=== PATIENT | male | born 1970 | race Two or more races ===

== ENCOUNTER 2018-11-17 07:03 | Inpatient (IN) | payer MEDICAID | END 2018-11-19 13:40 | disposition home or self-care (01) | LOC: TELE-WESTW 11-18 14:40 → ER 07:03 → OVERFLOW 09:45 | DX: A41.9 Sepsis, unspecified organism (principal); I21.4 Non-ST elevation (NSTEMI) myocardial infarction; J18.9 Pneumonia, unspecified organism; E27.1 Primary adrenocortical insufficiency; I42.9 Cardiomyopathy, unspecified; J01.00 Acute maxillary sinusitis, unspecified; I49.8 Other specified cardiac arrhythmias; I49.3 Ventricular premature depolarization; K80.20 Calculus of gallbladder without cholecystitis without obstruction; E87.6 Hypokalemia; E03.9 Hypothyroidism, unspecified ==

== ENCOUNTER 2020-04-10 04:24 | Inpatient (IN) | payer MEDICAID ==
[~2020-04-10] VITALS: Ht 170.2 cm; Wt 110.0 kg
[~2020-04-10 04:24] MED LIST: ACE3T PO; CARV12.544 PO; ENAL2.5T PO; FAMO-12 PO; LEVO88TA4 PO; METH500T22 PO
[2020-04-10 05:57] LABS: Basophils # (auto) 0 10 ^3/uL (0-0.2); Basophils % (auto) 0.6 % (0.0-2.0); Eosinophils # (auto) 0.2 10 ^3/uL (0-0.8); Eosinophils % (auto) 4.5 % (0.0-7.0); Hematocrit 39.8 % (41.0-53.0); Hemoglobin 13.5 g/dL (13.5-17.5); Lymphocytes # (auto) 1.5 10 ^3/uL (0.4-5.4); Lymphocytes % (auto) 32.9 % (10.0-50.0); Mean Corpuscular Hemoglobin 31.7 pg (28.0-32.0); Mean Corpuscular Volume 93.2 fL (80.0-100.0); Monocytes # (auto) 0.4 10 ^3/uL (0-1.3); Monocytes % (auto) 9.2 % (0.0-12.0); Neutrophils # (auto) 2.4 10 ^3/uL (1.6-8.6); Neutrophils % (auto) 52.8 % (37.0-80.0); Nucleated Red Blood Cells % 0.2 %; Platelet Count (auto) 105 10^3/uL (140-450); Red Blood Cells 4.27 10^6/uL (4.5-5.90); Red Cell Distribution Width 15.5 % (11.8-14.3); White Blood Cell 4.5 10^3/uL (4.4-10.8)
[2020-04-10 06:09] LABS: INR 1.34 (0.9-1.15); Partial Thromboplastin Time 37.2 sec (23.64-32.05)
[2020-04-10 06:21] LABS: Albumin 3.6 g/dL (3.4-5.0); Anion Gap 7 (5-15); Blood Urea Nitrogen 8 mg/dL (7-18); Calcium 7.9 mg/dL (8.5-10.1); Carbon Dioxide 26 mmol/L (21-32); Chloride 105 mmol/L (98-107); Potassium 3.3 mmol/L (3.5-5.1); Sodium 138 mmol/L (136-145)
[2020-04-10 06:29] LABS: Alanine Aminotransferase 21 U/L (16-61); Alkaline Phosphatase 79 U/L (45-117); Aspartate Aminotransferase 52 U/L (15-37); BUN/Creatinine Ratio 9.4; Bilirubin, Total 3.7 mg/dL (0.2-1.0); GFR African American 123 mL/min; GFR Non-African American 101 mL/min; Glucose 78 mg/dL (74-106); Total Protein 7.9 g/dL (6.4-8.2)
[2020-04-10 06:30] LABS: Lactic Acid w/Reflex 2.4 mmol/L (0.4-2.0)
[2020-04-10] MEDS ORDERED: POTASSIUM EFFERVESENT TAB 25 MEQ PO ONE (07:45)
[2020-04-10] MEDS ORDERED: HYDROCORTISONE SOD SUCC 100 MG/2ML INJ VIAL IV ONE (08:45)
[2020-04-10] MEDS ORDERED: FLUDROCORTISONE ACETATE 0.1 MG TAB PO ONE (08:45)
[2020-04-10] MEDS ORDERED: cefTRIAXone 1GM/50ML D5W 50 ML IV ONE (08:45)
[2020-04-10] MEDS ORDERED: cefTRIAXone SOD 1,000 MG VL ONE (08:49)
[2020-04-10] MEDS ORDERED: DIPH25CA46 PO (10:44)
[2020-04-10] MEDS ORDERED: CEPH500C PO (10:44)
[2020-04-10] MEDS ORDERED: HYDR-4792 PO (10:44)
[2020-04-10] MEDS ORDERED: PRED20TA2 PO (10:44)
[2020-04-10] MEDS ORDERED: FLUD0.1T2 PO (10:44)
[2020-04-10] MEDS ORDERED: FERR-20 PO (10:44)
[2020-04-10] MEDS: LEVOTHYROXINE SODIUM 100 MCG TAB PO ONE ×2 (10:47→10:49)
[2020-04-10] MEDS ORDERED: DOXYCYCLINE 100MG/250ML 250 ML IV ONE (11:15)
[2020-04-10] MEDS ORDERED: ACETAMINOPHEN 500 MG TAB PO PRN ×2 (11:30)
[2020-04-10] MEDS ORDERED: MORPHINE SULF INJ 2 MG/ML SYRINGE 1ML IV PRN ×2 (11:30)
[2020-04-10] MEDS ORDERED: NITROGLYCERIN 0.4 MG SL TAB SL PRN (11:30)
[2020-04-10] MEDS ORDERED: ONDANSETRON HCL 4 MG/2 ML VIAL IV PRN (11:30)
[2020-04-10] MEDS ORDERED: HYDROcodone-ACET 5/325MG TAB PO PRN (11:30)
[2020-04-10] MEDS ORDERED: FUROSEMIDE 20 MG/2 ML VIAL IV ONE (11:30)
[2020-04-10] MEDS ORDERED: PIPERACILLIN-TAZOB 3.375GM 100 ML IV ONE (11:50)
[2020-04-10] MEDS: PIPERACILLIN-TAZOB 3.375GM 100 ML IV SCH ×2 (12:09→18:44)
[2020-04-10 12:59] LABS: CRP High Sensitivity 0.83 mg/dL (< 0.3); Magnesium 1.9 mg/dL (1.6-2.6)
[2020-04-10 13:19] VITALS: BP 152/88
[2020-04-10] MEDS: ALBUTEROL SULF HFA 90MCG INH 200DOSE IN SCH (14:00)
--- NOTE | 2020-04-10 19:30 | NUR ---
Opening Shift Note Assumed care of patient, awake and alert x4. Patient denies pain at this time. Patient is on 2L NC with oxygen saturation at 99%. No sign/symptoms of distress noted or verbalized at this time. Instructed on plan of care and encouraged patient to call for assistance as needed, patient verbalized understanding. Bed is locked in lowest position, side rails x 2 are up, and call light is within reach.
[2020-04-10 20:00] VITALS: BP 146/88
--- NOTE | 2020-04-10 21:01 | NUR ---
Report Given Report given to Bozena FERREIRA.
--- NOTE | 2020-04-10 21:21 | NUR ---
Patient Transferred to 249A Patient to transfer to room 249A due to covid-19 test resulting negative, patient made aware, and verbalized understanding. Patient transferred via wheelchair. No sign/symptoms of distress noted upon departure. Patient care endorsed to HANNA Seals.
--- NOTE | 2020-04-10 21:30 | NUR ---
Received patient from Covid unit. Patient alert/oriented, not in distress. Instructed on POC and to call for assist as needed, patient verbalized understanding. Safety precaution in place, call light within reach, will continue to monitor
[2020-04-10] MEDS ORDERED: DOXYCYCLINE 100MG/250ML 250 ML IV SCH (22:00)
[2020-04-10] MEDS: CARVEDILOL 12.5 MG TAB PO SCH (22:42)
[2020-04-10] MEDS: FAMOTIDINE 20 MG TAB PO SCH (22:42)
[2020-04-10 23:57] VITALS: BP 136/82
[2020-04-11] VITALS (7 sets, daily range): BP systolic 88–132; BP diastolic 47–72
--- NOTE | 2020-04-11 00:20 | NUR ---
Patient complained of non-stop coughing. Assessment done and revealed bilateral crackles. V/S taken and maintained on O2 at 2 Lpm/NC. Paged hospitalist, awaiting call back
[2020-04-11] MEDS: PIPERACILLIN-TAZOB 3.375GM 100 ML IV SCH ×5 (00:26→18:15)
[2020-04-11] MEDS ORDERED: FUROSEMIDE 20 MG/2 ML VIAL IV ONE (01:00)
[2020-04-11] MEDS ORDERED: FUROSEMIDE 20 MG/2 ML VIAL ONE (01:00)
--- NOTE | 2020-04-11 01:00 | NUR ---
Hospitalist Michael called back, new order received at this time and read back, will carry out order
[2020-04-11 02:36] LABS: Amphetamine Screen, Urine NEGATIVE (NEGATIVE); Barbiturate Scree,Urine NEGATIVE (NEGATIVE); Benzodiazephine Screen, Urine NEGATIVE (NEGATIVE); Cannabinoid Screen, Urine NEGATIVE (NEGATIVE); Cocaine Screen, Urine NEGATIVE (NEGATIVE); Opiate Scree,Urine NEGATIVE (NEGATIVE); Phencyclidine Screen, Urine NEGATIVE (NEGATIVE)
[2020-04-11 02:53] LABS: Urine Bacteria FEW /hpf (None Seen); Urine Blood 2+ /uL (Negative); Urine Hyaline Cast MANY /lpf (0 - 2); Urine Specific Gravity 1.022 (1.001-1.035); Urine WBC 3 /hpf (0 - 3)
[2020-04-11 06:27] LABS: Basophils # (auto) 0 10 ^3/uL (0-0.2); Basophils % (auto) 0.4 % (0.0-2.0); Eosinophils # (auto) 0 10 ^3/uL (0-0.8); Eosinophils % (auto) 0.3 % (0.0-7.0); Hematocrit 39.1 % (41.0-53.0); Hemoglobin 13.3 g/dL (13.5-17.5); Lymphocytes # (auto) 0.5 10 ^3/uL (0.4-5.4); Lymphocytes % (auto) 9.4 % (10.0-50.0); Mean Corpuscular Hemoglobin 31.6 pg (28.0-32.0); Mean Corpuscular Volume 93.1 fL (80.0-100.0); Monocytes # (auto) 0.5 10 ^3/uL (0-1.3); Monocytes % (auto) 8.8 % (0.0-12.0); Neutrophils # (auto) 4.6 10 ^3/uL (1.6-8.6); Neutrophils % (auto) 81.1 % (37.0-80.0); Nucleated Red Blood Cells % 0.4 %; Platelet Count (auto) 95 10^3/uL (140-450); Red Cell Distribution Width 15.4 % (11.8-14.3); White Blood Cell 5.7 10^3/uL (4.4-10.8)
[2020-04-11 06:47] LABS: Albumin 3.2 g/dL (3.4-5.0); Calcium 7.8 mg/dL (8.5-10.1); Potassium 4.4 mmol/L (3.5-5.1)
[2020-04-11 06:50] LABS: BUN/Creatinine Ratio 12.9; Bilirubin, Total 2.8 mg/dL (0.2-1.0); Total Protein 7.3 g/dL (6.4-8.2)
[2020-04-11] MEDS ORDERED: LEVOTHYROXINE SODIUM 88 MCG TAB PO SCH (07:00)
--- NOTE | 2020-04-11 08:00 | NUR ---
OPENING SHIFT NOTE: PATIENT RESTING IN BED. A/OX4. UPDATED ON PLAN OF CARE. CALL LIGHT PLACED WITHIN REACH. RESPIRATIONS EVEN AND UNLABORED. WILL CONTINUE TO MONITOR.
--- NOTE | 2020-04-11 09:15 | NUR ---
MED REC COMPLETED. PATIENT ABLE TO VERIFY HOME MEDS. UPDATED IN THE EMR DIRECTED.
[2020-04-11] MEDS: CARVEDILOL 12.5 MG TAB PO SCH (10:00)
[2020-04-11] MEDS ORDERED: ZINC SULFATE 220mg CAP or TAB PO SCH (10:00)
[2020-04-11] MEDS ORDERED: ASCORBIC ACID 1,000 MG TAB PO SCH (10:00)
[2020-04-11] MEDS ORDERED: CHOLECALCIFEROL (VITD3) 1,000IU=25mCg TAB PO SCH (10:00)
--- NOTE | 2020-04-11 10:00 | NUR ---
PATIENT ABLE TO HAVE A BM. FORMED SOFT SMALL BROWN. SAMPLE SENT TO LAB.
[2020-04-11] MEDS: FAMOTIDINE 20 MG TAB PO SCH ×2 (10:41→21:59)
[2020-04-11] MEDS: FLUDROCORTISONE ACETATE 0.1 MG TAB PO SCH (10:41)
[2020-04-11] MEDS: HYDROCORTISONE 10 MG TAB PO SCH (10:41)
[2020-04-11] MEDS: ENOXAPARIN SOD 40 MG/0.4 ML SYRINGE SC SCH (10:42)
[2020-04-11] MEDS ORDERED: ASPI-404 PO (13:29)
[2020-04-11] MEDS ORDERED: predniSONE 20 MG TAB PO ONE (14:30)
[2020-04-11] MEDS ORDERED: IOHEXOL 350 MG/ML 100ML IJ ONE (14:31)
[2020-04-11] MEDS: VANCOMYCIN HCL 125MG/5ML ORAL SOL GT SCH ×2 (18:00→21:58)
--- NOTE | 2020-04-11 18:20 | NUR ---
C. DIFF ORDER CANCELLED, PATIENT NOT A CANDIDATE FOR C. DIFF TEST AT THIS TIME.
--- NOTE | 2020-04-11 19:33 | NUR ---
Respiratory note: ASSESSMENT FOR PRN MED NEB TX. HR 61, SPO2 98% ON 2L NC, RR 18, BS DIMINISHED. PT PRESENTING NO RESPIRATORY DISTRESS, MED NEB TX NOT INDICATED AT THIS TIME. PT AWARE TO HAVE RT PAGED IF NEEDED, WILL CONTINUE TO MONITOR.
[2020-04-11] MEDS: CARVEDILOL 3.125 MG TAB PO SCH (21:59)
[2020-04-11] MEDS: DOXYCYCLINE 100 MG TAB/CAP PO SCH (21:59)
[2020-04-12] MEDS: PIPERACILLIN-TAZOB 3.375GM 100 ML IV SCH ×2 (00:30→06:14)
--- NOTE | 2020-04-12 03:36 | NUR ---
CARE ENDORSED TO ELMO FERREIRA.
--- NOTE | 2020-04-12 04:10 | NUR ---
OPENING SHIFT NOTE ASSUMED CARE OF PATIENT FROM COURT ORDERLY LAUREN. PATIENT IS AWAKE, ALERT AND ORIENTED X4. PATIENT HAS NO S/S OF DISTRESS/SOB OR PAIN. INSTRUCTED PATIENT ON POC, PATIENT VERBALIZED UNDERSTANDING. BED IS IN LOWEST POSITION WITH SIDE RAILS RAISED X2, BED WHEELS LOCKED, AND CALL LIGHT IS WITHIN REACH. WILL CONTINUE TO MONITOR.
[2020-04-12 05:00] VITALS: BP 131/81
[2020-04-12 06:12] LABS: Basophils # (auto) 0 10 ^3/uL (0-0.2); Basophils % (auto) 0.3 % (0.0-2.0); Eosinophils # (auto) 0 10 ^3/uL (0-0.8); Eosinophils % (auto) 0.1 % (0.0-7.0); Hematocrit 41.2 % (41.0-53.0); Hemoglobin 13.9 g/dL (13.5-17.5); Lymphocytes # (auto) 0.3 10 ^3/uL (0.4-5.4); Lymphocytes % (auto) 8.8 % (10.0-50.0); Mean Corpuscular Hemoglobin 31.6 pg (28.0-32.0); Mean Corpuscular Hgb Conc. 33.7 g/dL (32.0-36.0); Mean Corpuscular Volume 93.8 fL (80.0-100.0); Monocytes # (auto) 0.1 10 ^3/uL (0-1.3); Monocytes % (auto) 1.8 % (0.0-12.0); Nucleated Red Blood Cells % 0.1 %; Platelet Count (auto) 90 10^3/uL (140-450); Red Blood Cells 4.39 10^6/uL (4.5-5.90); Red Cell Distribution Width 15.9 % (11.8-14.3); White Blood Cell 3.3 10^3/uL (4.4-10.8)
[2020-04-12] MEDS: LEVOTHYROXINE SODIUM 25 MCG TAB PO SCH (06:14)
[2020-04-12] MEDS: LEVOTHYROXINE SODIUM 100 MCG TAB PO SCH (06:15)
[2020-04-12 06:41] LABS: Potassium 4.4 mmol/L (3.5-5.1)
[2020-04-12 06:59] LABS: Albumin 3.5 g/dL (3.4-5.0); BUN/Creatinine Ratio 20.2; Bilirubin, Total 2.4 mg/dL (0.2-1.0); Calcium 8.3 mg/dL (8.5-10.1); Magnesium 2.1 mg/dL (1.6-2.6); Total Protein 7.8 g/dL (6.4-8.2)
--- NOTE | 2020-04-12 07:19 | NUR ---
PT ASSESSED FOR PRN HHN TX. PT IS ON 2LNC, SPO2 95%, HR 78, RR 18. NO S/S OF RESPIRATORY DISTRESS AT THIS TIME. PRN TX NOT INDICATED. WILL CONTINUE TO MONITOR.
[2020-04-12 08:02] VITALS: BP 131/81
[2020-04-12 08:40] VITALS: BP 119/78
[2020-04-12] MEDS: CARVEDILOL 3.125 MG TAB PO SCH ×2 (08:46→17:42)
--- NOTE | 2020-04-12 08:55 | NUR ---
RESPIRATORY CULTURE GIVEN TO METHOD CONSULTANT.
--- NOTE | 2020-04-12 08:57 | NUR ---
GAVE PATIENT INCENTIVE SPIROMETER. EDUCATED PATIENT ON USE OF IS, PATIENT VERBALIZED UNDERSTANDING.
[2020-04-12] MEDS ORDERED: predniSONE 20 MG TAB PO SCH (10:00)
--- NOTE | 2020-04-12 10:25 | NUR ---
MD NUÑEZ AT BEDSIDE UPDATED MD ON PATIENT'S STATUS, MD IS AWARE. UPDATED MED REC FOR HYDROCORTISONE.
[2020-04-12] MEDS ORDERED: HYDR10T PO (10:41)
[2020-04-12] MEDS: HYDROCORTISONE 10 MG TAB PO SCH ×2 (10:49→21:54)
[2020-04-12] MEDS: DOXYCYCLINE 100 MG TAB/CAP PO SCH (10:49)
[2020-04-12] MEDS: FAMOTIDINE 20 MG TAB PO SCH ×2 (10:51→21:50)
[2020-04-12] MEDS: FLUDROCORTISONE ACETATE 0.1 MG TAB PO SCH (10:51)
--- NOTE | 2020-04-12 11:12 | NUR ---
SPOKE WITH DR. NUÑEZ REGARDING DOXYCYCLINE AND LOVENOX PER GLADIS DEL REAL DOXYCYCLINE AND GIVE LOVENOX. WILL FOLLOW THROUGH WITH ORDERS.
[2020-04-12] MEDS: ENOXAPARIN SOD 40 MG/0.4 ML SYRINGE SC SCH (11:17)
[2020-04-12] MEDS ORDERED: levoFLOXacin 250 MG TAB PO ONE ×2 (11:45→12:15)
[2020-04-12] MEDS ORDERED: FUROSEMIDE 20 MG/2 ML VIAL IV ONE (11:45)
[2020-04-12 12:30] VITALS: BP 118/83
--- NOTE | 2020-04-12 14:34 | NUR ---
VERIFIED LEVOFLOXACIN ORDER WITH DR. NUÑEZ PER MD ONLY GIVE 750 MG (3 TABS) ONE TIME.
[2020-04-12 17:00] VITALS: BP 104/56
--- NOTE | 2020-04-12 18:00 | NUR ---
SPOKE WITH DR. COLEMAN AND INFORMED HIM PATIENT STATES HIS MOUTH IS BURNING AND HIS THROAT IS DRY. THERE IS NO NOTABLE SORE OR SWELLING IN MOUTH OR ON LIPS. PATIENT'S TONGUE IS DRY AND ENCOURAGED PATIENT TO DRINK WATER. PATIENT HAS NOT EATEN ANYTHING SPICY. MD ORDERED DIPHENHYDRAMINE TO BE GIVEN. WILL FOLLOW THROUGH WITH ORDERS.
[2020-04-12] MEDS ORDERED: diphenhdrAMINE HCL 50 MG/1 ML VL IV ONE ×2 (18:15→18:30)
--- NOTE | 2020-04-12 18:26 | NUR ---
DR. COLEMAN AT BEDSIDE AND CHANGED ORDER OF DIPHENHYDRAMINE TO 50 MG WILL CHANGE ORDER
--- NOTE | 2020-04-12 19:20 | NUR ---
CLOSING SHIFT NOTE ENDORSED CARE TO FLOOR PLAN ADJUSTER HANNA GIANG. PATIENT HAS NO S/S OF DISTRESS/SOB OR PAIN AT THIS TIME. RN IS AWARE OF PATIENT'S MOUTH BURNING AND DISCHARGE FROM EYES. RN PAGED MD COLEMAN FOR NEW ONSET OF DISCHARGE IN EYES
[2020-04-12] MEDS ORDERED: methylPREDNISolone SOD SUCC 125 MG/2 ML VL IV ONE (19:30)
--- NOTE | 2020-04-12 19:30 | NUR ---
OPENING NOTE RN CAME ON AND RECEIVED REPORT FROM DAY HANNA ASTUDILLO. RN REPORTED PT. WATERING EYES/ DISCHARGE FROM EYES WITH REDNESS. RNX2 WENT TO BEDSIDE TO ASSESS PT. AND ORIENT TO NEW RN. PT. ALSO STATES "MOUTH IS ON FIRE". PT. GIVEN ICE CHIPS AND INFORMED DR. PERRY REGARDING EYES/MOUTH. PT. IN NO PAIN. CALL LIGHT WITHIN REACH. WILL MONITOR.
--- NOTE | 2020-04-12 19:40 | NUR ---
DR KEANU SETH RETURNED CALL AND PUT IN ORDER FOR ONE TIME IV SOLU-MEDROL 125MG TO BE GIVEN NOW. MEDICATION GIVEN. PT. TOLERATED WELL AND RESTING. CALL LIGHT WITHIN REACH. WILL CONTINUE TO MONITOR.
[2020-04-12] MEDS ORDERED: QUEtiapine FUMARATE 100 MG TAB PO ONE (19:45)
[2020-04-12] MEDS ORDERED: ACETAMINOPHEN 500 MG TAB PO PRN (19:45)
[2020-04-12] MEDS ORDERED: THROAT LOZENGES(CEPASTAT) MT ONE (19:45)
[2020-04-12] MEDS ORDERED: THROAT LOZENGES(CEPASTAT) MT PRN (19:45)
[2020-04-12 22:00] VITALS: BP 124/75
--- NOTE | 2020-04-13 00:05 | NUR ---
SLEEPING PT. ASLEEP IN BED. O2 ON. BED LOW. LIGHTS DIM. CALL LIGHT WITHIN REACH. WILL CONTINUE TO MONITOR.
[2020-04-13 04:30] VITALS: BP 113/69
[2020-04-13] MEDS: LEVOTHYROXINE SODIUM 100 MCG TAB PO SCH (06:44)
[2020-04-13] MEDS: LEVOTHYROXINE SODIUM 25 MCG TAB PO SCH (06:44)
--- NOTE | 2020-04-13 06:50 | NUR ---
END OF SHIFT PT. AWAKE AND RESTING IN BED. CALL LIGHT WITHIN REACH. NO PAIN/DISTRESS.
[2020-04-13 06:57] LABS: Basophils # (auto) 0 10 ^3/uL (0-0.2); Eosinophils # (auto) 0 10 ^3/uL (0-0.8); Hematocrit 37.8 % (41.0-53.0); Hemoglobin 12.7 g/dL (13.5-17.5); Lymphocytes # (auto) 0.2 10 ^3/uL (0.4-5.4); Lymphocytes % (auto) 1.9 % (10.0-50.0); Mean Corpuscular Hemoglobin 31.5 pg (28.0-32.0); Mean Corpuscular Hgb Conc. 33.6 g/dL (32.0-36.0); Mean Corpuscular Volume 93.9 fL (80.0-100.0); Monocytes # (auto) 0.1 10 ^3/uL (0-1.3); Monocytes % (auto) 0.8 % (0.0-12.0); Neutrophils # (auto) 9.3 10 ^3/uL (1.6-8.6); Neutrophils % (auto) 97.3 % (37.0-80.0); Nucleated Red Blood Cells % 0.1 %; Platelet Count (auto) 95 10^3/uL (140-450); Red Blood Cells 4.03 10^6/uL (4.5-5.90); Red Cell Distribution Width 15.8 % (11.8-14.3); White Blood Cell 9.5 10^3/uL (4.4-10.8)
[2020-04-13 07:17] LABS: Albumin 3.2 g/dL (3.4-5.0); BUN/Creatinine Ratio 22.5; Calcium 7.7 mg/dL (8.5-10.1)
[2020-04-13 07:20] LABS: Bilirubin, Total 1.6 mg/dL (0.2-1.0); Total Protein 7.2 g/dL (6.4-8.2)
[2020-04-13 07:28] LABS: INR 1.33 (0.9-1.15)
--- NOTE | 2020-04-13 07:35 | NUR ---
Opening shift note Assumed care of patient from NOC HANNA Vee. Patient is AOx4, no signs and symptoms of distress noted. Call light is within reach, bed is in lowest locked position, and side rails up x2. Updated patient on plan of care and patient verbalized understanding. I will continue to monitor q1hr and PRN.
[2020-04-13] MEDS: ALBUTEROL SULF 2.5 MG/0.5ML(0.5%) NEB SOLN NEB PRN (08:36)
[2020-04-13] MEDS: IPRATROPIUM BROM 0.5 MG/2.5ML INH SOL NEB PRN (08:36)
[2020-04-13 08:54] VITALS: BP 123/74
--- NOTE | 2020-04-13 09:33 | NUR ---
PT VERY TIRED AND SLEEPY. ATTEMPT P.T. LATER TODAY.
[2020-04-13] MEDS: levoFLOXacin 250 MG TAB PO SCH ×2 (10:00→13:13)
[2020-04-13] MEDS: predniSONE 20 MG TAB PO SCH (11:32)
[2020-04-13] MEDS: CARVEDILOL 3.125 MG TAB PO SCH ×2 (11:32→18:53)
[2020-04-13] MEDS: HYDROCORTISONE 10 MG TAB PO SCH ×2 (11:33→21:44)
[2020-04-13] MEDS: FLUDROCORTISONE ACETATE 0.1 MG TAB PO SCH (11:33)
[2020-04-13] MEDS: FUROSEMIDE 20 MG TAB PO SCH (11:34)
[2020-04-13] MEDS: FAMOTIDINE 20 MG TAB PO SCH ×2 (11:36→21:45)
--- NOTE | 2020-04-13 12:00 | NUR ---
Physician Rounding Dr. Carrasquillo at bedside, updated her on plan of care, no new orders received at this time.
[2020-04-13] MEDS ORDERED: METOCLOPRAMIDE HCL 5MG/ml INJ 2ml VIAL IV PRN (12:15)
[2020-04-13 12:55] VITALS: BP 119/72
[2020-04-13] MEDS: FLUCONAZOLE 200MG/100ML 100 ML IV SCH ×2 (16:00→17:56)
[2020-04-13 16:20] VITALS: BP 133/82
--- NOTE | 2020-04-13 19:18 | NUR ---
Opening note Assumed care of patient. Patient alert and orientated x4. No sob or distress noted. Bed locked in lowest position and side rails up x2. Call light with in reach Will continue to monitor.
--- NOTE | 2020-04-13 19:20 | NUR ---
End of shift note Endorsed care to NOC HANNA bales. No s/s of distress noted at this time.
--- NOTE | 2020-04-13 19:45 | NUR ---
RT NOTE PT WAS SEEN BY RT FOR PRN HHN TX ASSESSMENT. PT STATES NO TREATMENT NEEDED AT THIS TIME. HR 87, RR 16, BS CLEAR/DIM, POX 96% ON 2L NASAL CANNULA. PT AWARE HE CAN CALL IF TX NEEDED AT ANY TIME. NO PRN TX INDICATED AT THIS TIME. CONT ORDERED Addendum: 04/13/20 at 2011 by Maggie Gonzalez RT Amended: Links added.
[2020-04-13] MEDS ORDERED: FLUCONAZOLE 200MG/100ML 100 ML IV ONE (19:48)
[2020-04-13 21:14] VITALS: BP 112/74
[2020-04-14 04:35] VITALS: BP_SYST 109; BP_SYST 116; BP_DIAS 66; BP_DIAS 77
[2020-04-14 06:23] LABS: Albumin 3.3 g/dL (3.4-5.0); Bilirubin, Direct 0.9 mg/dL (0-0.2); Bilirubin, Total 1.2 mg/dL (0.2-1.0); Total Protein 7.2 g/dL (6.4-8.2)
[2020-04-14] MEDS: LEVOTHYROXINE SODIUM 100 MCG TAB PO SCH (06:37)
[2020-04-14] MEDS: LEVOTHYROXINE SODIUM 25 MCG TAB PO SCH (06:38)
--- NOTE | 2020-04-14 07:10 | NUR ---
Closing note Endorsed care to day shift RN.
[2020-04-14] MEDS: CARVEDILOL 3.125 MG TAB PO SCH ×2 (08:00→17:35)
[2020-04-14 09:00] VITALS: BP 127/90
--- NOTE | 2020-04-14 09:28 | NUR ---
Patient assessment Patient stated " I can not open my eyes, the light is too bright." Patients eyes are red and swollen, patient stated he does not feel any pain at the site. I will updated attending MD. I will continue to monitor PRN and Q1hr.
--- NOTE | 2020-04-14 09:30 | NUR ---
Physician rounding Dr. Carrasquillo at bedside, updated her on patient status, new orders received I will follow through with new orders.
[2020-04-14] MEDS ORDERED: diphenhdrAMINE HCL 50 MG/1 ML VL IV ONE (09:45)
[2020-04-14] MEDS ORDERED: methylPREDNISolone SOD SUCC 125 MG/2 ML VL IV ONE (09:45)
[2020-04-14 09:50] VITALS: BP 98/56
--- NOTE | 2020-04-14 09:50 | NUR ---
Patient Vitas Patient is supine in bed, so s/s of distress noted. Vitals are as follows: B/P: 98/56 HR: 63bpm Respirations: 19 per minute Temperature: 97.7 Oxygen saturation: 97% on room air. I will continue to monitor Q1HR and PRN.
[2020-04-14] MEDS: FUROSEMIDE 20 MG TAB PO SCH (10:00)
[2020-04-14] MEDS: predniSONE 20 MG TAB PO SCH (10:04)
[2020-04-14] MEDS: FAMOTIDINE 20 MG TAB PO SCH ×2 (10:04→21:07)
[2020-04-14] MEDS: FLUDROCORTISONE ACETATE 0.1 MG TAB PO SCH (10:05)
[2020-04-14] MEDS: FLUCONAZOLE 200MG/100ML 200 ML IV SCH ×2 (10:07→11:36)
[2020-04-14] MEDS: HYDROCORTISONE 10 MG TAB PO SCH ×2 (10:20→21:07)
--- NOTE | 2020-04-14 11:00 | NUR ---
HOLD P.T. BECAUSE OF ALLERGIC REACTION. PER NURSING REQUEST.
[2020-04-14 11:30] VITALS: BP 127/81
--- NOTE | 2020-04-14 11:42 | NUR ---
Est energy needs [id number] kcal (14-18 kcal/kg BW 114.5kg) Est protein needs 67-81g (1-1.2g/kg IBW 67kg) Will reassess prn. Addendum: 04/14/20 at [address] Amended: Links added.
[2020-04-14] MEDS ORDERED: FUROSEMIDE 20 MG/2 ML VIAL IV ONE (11:45)
--- NOTE | 2020-04-14 14:53 | NUR ---
Respiratory note: PT ASSESSED FOR PRN MED NEB TX, NO TX INDICATED AT THIS TIME. PT IS SLEEPING WITH NO SIGNS OF DISTRESS. RN AWARE TO HAVE RT PAGED IF NEEDED. HR 68 RR 18 SPO2 95% ON 2L N/C. BREATH SOUNDS ARE CLEAR/DIMINISHED T/O.
[2020-04-14 16:23] VITALS: BP 127/95
[2020-04-14] MEDS: FUROSEMIDE 40 MG/4 ML VIAL IV SCH (17:35)
--- NOTE | 2020-04-14 19:10 | NUR ---
End of shift note Endorsed care to NOC HANNA bales. No s/s of distress noted at this time.
--- NOTE | 2020-04-14 19:13 | NUR ---
Respiratory note: PT SEEN AND ASSESSED FOR PRN MED NEB TX AT 1913. TX IS NOT INDICATED AT THIS TIME. PT DENIES HAVING ANY RESPIRATORY DISTRESS. BREATH SOUNDS WERE CLEAR AND DIMINISHED BILATERALLY. HR 74 RR 18 SP02 98% ON 2L NASAL CANNULA. PT AWARE TO CALL FOR RT IF ANY DISTRESS OCCURS.
--- NOTE | 2020-04-14 19:15 | NUR ---
Opening note Assumed care of patient. Patient Bed locked in lowest position. Side rails up x2. No distress noted. POC reviewed. Patient verbalized understanding. Call light within reach. Will continue to monitor.
[2020-04-14 22:00] VITALS: BP 136/86
[2020-04-15 03:14] VITALS: BP 136/86
[2020-04-15 05:00] VITALS: BP 122/94
[2020-04-15] MEDS: FUROSEMIDE 40 MG/4 ML VIAL IV SCH ×2 (05:24→18:12)
[2020-04-15 06:10] LABS: Basophils # (auto) 0 10 ^3/uL (0-0.2); Eosinophils # (auto) 0 10 ^3/uL (0-0.8); Hematocrit 45.6 % (41.0-53.0); Hemoglobin 15.1 g/dL (13.5-17.5); Lymphocytes # (auto) 0.6 10 ^3/uL (0.4-5.4); Lymphocytes % (auto) 11.2 % (10.0-50.0); Mean Corpuscular Hemoglobin 31.5 pg (28.0-32.0); Mean Corpuscular Hgb Conc. 33.1 g/dL (32.0-36.0); Mean Corpuscular Volume 94.9 fL (80.0-100.0); Monocytes # (auto) 0.2 10 ^3/uL (0-1.3); Monocytes % (auto) 3.5 % (0.0-12.0); Neutrophils # (auto) 4.8 10 ^3/uL (1.6-8.6); Neutrophils % (auto) 85.3 % (37.0-80.0); Nucleated Red Blood Cells % 0.1 %; Platelet Count (auto) 125 10^3/uL (140-450); Red Cell Distribution Width 16.1 % (11.8-14.3); White Blood Cell 5.6 10^3/uL (4.4-10.8)
[2020-04-15 06:28] LABS: Albumin 3.5 g/dL (3.4-5.0); Calcium 8.2 mg/dL (8.5-10.1); Magnesium 2.7 mg/dL (1.6-2.6); Potassium 4.1 mmol/L (3.5-5.1)
[2020-04-15] MEDS: LEVOTHYROXINE SODIUM 25 MCG TAB PO SCH (06:32)
[2020-04-15] MEDS: LEVOTHYROXINE SODIUM 100 MCG TAB PO SCH (06:32)
[2020-04-15 06:33] LABS: BUN/Creatinine Ratio 28.9; Bilirubin, Total 1.3 mg/dL (0.2-1.0); Total Protein 7.8 g/dL (6.4-8.2)
[2020-04-15] MEDS: IPRATROPIUM BROM 0.5 MG/2.5ML INH SOL NEB PRN (07:16)
[2020-04-15] MEDS: ALBUTEROL SULF 2.5 MG/0.5ML(0.5%) NEB SOLN NEB PRN (07:16)
--- NOTE | 2020-04-15 07:18 | NUR ---
CLOSING NOTE Endorsed care to day shift RN.
--- NOTE | 2020-04-15 07:40 | NUR ---
opening shift note Assumed care of patient from NOC HANNA Tate. Patient is AOX4, no signs and symptoms of distress noted. Bed is in lowest locked position, side rails up x2, and call light is within reach. Updated patient on plan of care patient verbalized understanding. I will continue to monitor q1hr and prn.
[2020-04-15 08:30] VITALS: BP 132/71
[2020-04-15] MEDS: CARVEDILOL 3.125 MG TAB PO SCH ×2 (10:40→18:00)
[2020-04-15] MEDS: FLUCONAZOLE 200MG/100ML 200 ML IV SCH ×2 (10:40→13:40)
[2020-04-15] MEDS: FLUDROCORTISONE ACETATE 0.1 MG TAB PO SCH (10:41)
[2020-04-15] MEDS: predniSONE 20 MG TAB PO SCH (10:41)
[2020-04-15] MEDS: FAMOTIDINE 20 MG TAB PO SCH ×2 (10:41→21:26)
[2020-04-15] MEDS: HYDROCORTISONE 10 MG TAB PO SCH ×2 (10:41→21:26)
--- NOTE | 2020-04-15 11:05 | NUR ---
Physician rounding Dr. mcneil at bedside, updated doctor on patient status. No new orders received.
[2020-04-15 11:07] LABS: Hepatitis B Surface Antibody Negative
[2020-04-15 11:36] LABS: Hepatitis A Total Antibody Negative
[2020-04-15 12:30] VITALS: BP 113/67
[2020-04-15 12:45] LABS: Hepatitis C Antibody Negative (Negative)
[2020-04-15 12:46] LABS: Hepatitis B Core Total AB Negative; Hepatitis B Surface Antigen Negative (Negative)
[2020-04-15 16:50] VITALS: BP 17/86
--- NOTE | 2020-04-15 19:00 | NUR ---
End of shift note Endorsed care to NOC HANNA Tate. No signs and symptoms of distress noted at this time.
--- NOTE | 2020-04-15 19:25 | NUR ---
Opening note Assumed care of patient. Patient alert and orientated x4. No SOB or distress noted. Call light within reach. bed locked in lowest position. Side rails up x2. Will continue to monitor.
[2020-04-15] MEDS: SACUBITRIL-VALSARTAN 24mg/26mg TAB PO SCH (21:26)
[2020-04-15 22:00] VITALS: BP 137/88
[2020-04-16 05:00] VITALS: BP 110/61
[2020-04-16] MEDS: LEVOTHYROXINE SODIUM 100 MCG TAB PO SCH (06:03)
[2020-04-16] MEDS: FUROSEMIDE 40 MG/4 ML VIAL IV SCH ×2 (06:03→17:13)
[2020-04-16] MEDS: LEVOTHYROXINE SODIUM 25 MCG TAB PO SCH (06:04)
--- NOTE | 2020-04-16 07:25 | NUR ---
Closing note Endorsed care to day shift AHNNA Burt
[2020-04-16 08:00] VITALS: BP 121/71
[2020-04-16 08:36] VITALS: BP 121/71
[2020-04-16] MEDS: SACUBITRIL-VALSARTAN 24mg/26mg TAB PO SCH (09:42)
[2020-04-16] MEDS: FAMOTIDINE 20 MG TAB PO SCH (09:42)
[2020-04-16] MEDS: CARVEDILOL 3.125 MG TAB PO SCH ×2 (09:42→17:14)
[2020-04-16] MEDS: predniSONE 20 MG TAB PO SCH (09:42)
[2020-04-16] MEDS: FLUCONAZOLE 200MG/100ML 200 ML IV SCH ×2 (09:43→12:22)
[2020-04-16] MEDS: FLUDROCORTISONE ACETATE 0.1 MG TAB PO SCH (09:44)
[2020-04-16] MEDS ORDERED: LISINOPRIL 10 MG TAB PO SCH (10:00)
--- NOTE | 2020-04-16 10:35 | NUR ---
RT NOTE: NO TX INDICATED AT THIS TIME. NO SIGNS OF RESPIRATORY DISTRESS NOTED. ON RA SPO2 97 HR 73 RR 16. LUNG SOUNDS CLEAR/DIMINISHED T/O. PT AWARE TO PAGE FOR RESPIRATORY IF NEED FOR TX ARISES. WILL CONTINUE TO MONITOR.
[2020-04-16 12:34] VITALS: BP 114/80
[2020-04-16] MEDS ORDERED: CAR3125T PO (13:49)
[2020-04-16] MEDS ORDERED: SACU1TAB PO (13:49)
[2020-04-16] MEDS ORDERED: FURO1TAB31 PO (13:49)
[2020-04-16] MEDS ORDERED: FLUC200T35 PO (13:49)
[2020-04-16] MEDS: HYDROCORTISONE 10 MG TAB PO SCH (14:36)
[2020-04-16 15:10] VITALS: BP 114/80
[2020-04-16 16:49] VITALS: BP 118/62
--- NOTE | 2020-04-16 17:12 | NUR ---
Regarding social service consult for home health safety evaluation, physical therapy, medication management and vitals. Patient does not have home health benefits with health plan. Page doctor and informed HANNA Tate.
--- NOTE | 2020-04-16 18:42 | NUR ---
DISCHARGED HOME. ENCOURAGED TO FOLLOW UP WITH [facility] IN A WEEK, CMP AND TSH IN A WEEK RESULTS TO FOLLOW BY PHYSICIAN AT [facility], FOLLOW WITH NEW PCP DR. MONK, AND DR. BEACH WITHIN 1-2 WEEKS. NEW PRESCRIPTION WAS SENT TO [facility] BY DR. KENNEDY, MED WAS DELIVERED TO BEDSIDE BY [facility]. ALL QUESTIONS AND CONCERNED ADDRESSED. IV REMOVED WITH CATHETER INTACT, PRESSURE DRESSING APPLIED, TELE BOX REMOVED AND RETURNED TO ICU. PT LEFT UNIT VIA W/C, ACCOMPANIED BY STAFF, NO ACUTE DISTRESS NOTED AT DEPARTURE.
[2020-04-17] MEDS ORDERED: FLUCONAZOLE 100 MG TAB PO SCH (10:00)
== END 2020-04-16 18:42 | disposition home or self-care (01) | DRG 720 ==
LOC: ER 04:24 → TELE 04:25 → TELE-EAST 12:55
PROVIDERS: ADMIT Nurse Practitioner Acute Care; ATTEND Internal Medicine
DX: A41.9 Sepsis, unspecified organism (principal); J96.00 Acute respiratory failure, unspecified whether with hypoxia or hypercapnia; I50.43 Acute on chronic combined systolic (congestive) and diastolic (congestive) heart failure; J16.8 Pneumonia due to other specified infectious organisms; D69.6 Thrombocytopenia, unspecified; I42.8 Other cardiomyopathies; E27.1 Primary adrenocortical insufficiency; I11.0 Hypertensive heart disease with heart failure; J44.0 Chronic obstructive pulmonary disease with (acute) lower respiratory infection; E87.6 Hypokalemia; E66.9 Obesity, unspecified; E03.9 Hypothyroidism, unspecified; K80.20 Calculus of gallbladder without cholecystitis without obstruction; Z95.810 Presence of automatic (implantable) cardiac defibrillator; Z68.38 Body mass index [BMI] 38.0-38.9, adult; Z82.3 Family history of stroke; Z82.49 Family history of ischemic heart disease and other diseases of the circulatory system; Z83.3 Family history of diabetes mellitus; Z20.828 Contact with and (suspected) exposure to other viral communicable diseases
CPT/HCPCS: 36415; 36600; 71045; 71275; 76705; 80053; 80061; 80076; 80307; 81001; 82728; 82805; 83605; 83615; 83735; 83880; 84443; 84484; 85025; 85379; 85610; 85730; 86141; 86704; 86706; 86708; 86803; 87040; 87045; 87070; 87077; 87205; 87340; 87427; 87493; 87804; 87880; 93005; 93306; 93970; 94640; 96365; 96375; G0378; J0696; J1450; J2405; J2543

== ENCOUNTER 2020-08-29 17:51 | Emergency (ER) | payer MEDICAID, OTHER ==
[~2020-08-29] VITALS: Ht 170.2 cm; Wt 111.1 kg
[~2020-08-29 17:51] MED LIST changes: -ACE3T PO; +ASPI-543 PO; +CAR3125T PO; -CARV12.544 PO; +DIPH25CA46 PO; -ENAL2.5T PO; +FERR-20 PO; +FLUC200T35 PO; +FLUD0.1T2 PO; +FURO1TAB31 PO; +HYDR-4623 PO; +HYDR10T PO; -METH500T22 PO; +PRED20TA2 PO; +SACU1TAB PO
[2020-08-29 18:20] VITALS: BP 172/96
[2020-08-29 19:58] LABS: Basophils # (auto) 0.1 10 ^3/uL (0-0.2); Basophils % (auto) 0.6 % (0.0-2.0); Eosinophils # (auto) 0.5 10 ^3/uL (0-0.8); Hematocrit 46.9 % (41.0-53.0); Hemoglobin 16.5 g/dL (13.5-17.5); Lymphocytes # (auto) 3.4 10 ^3/uL (0.4-5.4); Lymphocytes % (auto) 29.9 % (10.0-50.0); Mean Corpuscular Hemoglobin 32.2 pg (28.0-32.0); Mean Corpuscular Hgb Conc. 35.1 g/dL (32.0-36.0); Mean Corpuscular Volume 91.5 fL (80.0-100.0); Monocytes # (auto) 1.4 10 ^3/uL (0-1.3); Monocytes % (auto) 12.5 % (0.0-12.0); Nucleated Red Blood Cells % 0.3 %; Platelet Count (auto) 180 10^3/uL (140-450); Red Blood Cells 5.12 10^6/uL (4.5-5.90); Red Cell Distribution Width 13.4 % (11.8-14.3); White Blood Cell 11.4 10^3/uL (4.4-10.8)
[2020-08-29 20:16] LABS: INR 1.15 (0.9-1.15)
[2020-08-29 20:23] LABS: Albumin 3.6 g/dL (3.4-5.0); Anion Gap 10 (5-15); Blood Urea Nitrogen 11 mg/dL (7-18); Calcium 8.3 mg/dL (8.5-10.1); Carbon Dioxide 21 mmol/L (21-32); Chloride 103 mmol/L (98-107); Glucose 88 mg/dL (74-106); Magnesium 1.8 mg/dL (1.6-2.6); Potassium 3.4 mmol/L (3.5-5.1); Sodium 134 mmol/L (136-145)
[2020-08-29 20:25] LABS: Aspartate Aminotransferase 27 U/L (15-37); BUN/Creatinine Ratio 13.8; GFR African American 132 mL/min; GFR Non-African American 109 mL/min
[2020-08-29 20:33] LABS: Alanine Aminotransferase 15 U/L (16-61); Alkaline Phosphatase 57 U/L (45-117); Total Protein 7.9 g/dL (6.4-8.2)
[2020-08-29] MEDS ORDERED: IOHEXOL 300 MG/ML 100ML BOTTLE IJ ONE (21:39)
[2020-08-29] MEDS ORDERED: IOHEXOL 350 MG/ML 100ML IJ ONE (21:52)
[2020-08-29] MEDS ORDERED: CLINDAMYCIN 600 MG/4 ML VL IM ONE (22:45)
[2020-08-29] MEDS ORDERED: CLINDAMYCIN 900MG IV 50 ML IV ONE (23:45)
== END 2020-08-29 23:33 | disposition home or self-care (01) ==
LOC: ER 17:51 → EDBD 17:51 → ER 23:33
DX: J32.0 Chronic maxillary sinusitis (principal); J01.20 Acute ethmoidal sinusitis, unspecified; M85.80 Other specified disorders of bone density and structure, unspecified site; I11.0 Hypertensive heart disease with heart failure; I50.9 Heart failure, unspecified; Z88.1 Allergy status to other antibiotic agents
CPT/HCPCS: 36415; 70450; 70486; 71045; 71275; 80053; 83605; 83735; 83880; 84484; 85025; 85379; 85610; 85730; 93005; 96365; 99285; J3490; Q9967

== ENCOUNTER 2020-08-31 09:10 | Inpatient (IN) | payer MEDICAID ==
[~2020-08-31] VITALS: Ht 165.1 cm; Wt 109.7 kg
[2020-08-31] VITALS (23 sets, daily range): BP systolic 103–119; BP diastolic 65–81
[2020-08-31] MEDS ORDERED: ONDANSETRON HCL 4 MG/2 ML VIAL IV ONE (09:30)
[2020-08-31] MEDS ORDERED: AMIODARONE HCL 150 MG in D5W 5% 100 ML IV ONE (09:30)
[2020-08-31] MEDS ORDERED: AMIODARONE 450mg/250ml AE 250 ML IV SCH (09:30)
[2020-08-31] MEDS ORDERED: MORPHINE SULFATE 4 MG/ML SYR/VIAL IV ONE (09:30)
[2020-08-31] MEDS ORDERED: SODIUM CHLORIDE 0.9% 1,000 ML IVB ONE (09:30)
[2020-08-31 09:55] LABS: Basophils # (auto) 0.1 10 ^3/uL (0-0.2); Basophils % (auto) 0.5 % (0.0-2.0); Eosinophils # (auto) 0.4 10 ^3/uL (0-0.8); Eosinophils % (auto) 3.9 % (0.0-7.0); Hematocrit 46.4 % (41.0-53.0); Hemoglobin 16.2 g/dL (13.5-17.5); Lymphocytes # (auto) 3.5 10 ^3/uL (0.4-5.4); Lymphocytes % (auto) 31.1 % (10.0-50.0); Mean Corpuscular Hemoglobin 32.7 pg (28.0-32.0); Mean Corpuscular Hgb Conc. 34.9 g/dL (32.0-36.0); Mean Corpuscular Volume 93.8 fL (80.0-100.0); Monocytes # (auto) 0.8 10 ^3/uL (0-1.3); Monocytes % (auto) 7.5 % (0.0-12.0); Neutrophils # (auto) 6.4 10 ^3/uL (1.6-8.6); Nucleated Red Blood Cells % 0.2 %; Platelet Count (auto) 187 10^3/uL (140-450); Red Blood Cells 4.94 10^6/uL (4.5-5.90); Red Cell Distribution Width 13.5 % (11.8-14.3); White Blood Cell 11.3 10^3/uL (4.4-10.8)
[2020-08-31 10:15] LABS: INR 1.12 (0.9-1.15); Partial Thromboplastin Time 28.7 sec (23.0-31.2)
[2020-08-31 10:17] LABS: Chloride 104 mmol/L (98-107); Potassium 3.5 mmol/L (3.5-5.1); Sodium 134 mmol/L (136-145)
[2020-08-31 10:22] LABS: Alanine Aminotransferase 13 U/L (16-61); Albumin 3.4 g/dL (3.4-5.0); Alkaline Phosphatase 58 U/L (45-117); Anion Gap 8 (5-15); Aspartate Aminotransferase 36 U/L (15-37); BUN/Creatinine Ratio 15.5; Bilirubin, Total 2.2 mg/dL (0.2-1.0); Blood Urea Nitrogen 17 mg/dL (7-18); Calcium 8.2 mg/dL (8.5-10.1); Carbon Dioxide 22 mmol/L (21-32); GFR African American 91 mL/min; GFR Non-African American 75 mL/min; Glucose 110 mg/dL (74-106); Magnesium 2.3 mg/dL (1.6-2.6); Total Protein 7.3 g/dL (6.4-8.2)
[2020-08-31] MEDS ORDERED: NOREPINEPHRINE 8 MG/250ML KIT 250 ML IV ONE (10:29)
[2020-08-31] MEDS ORDERED: NOREPINEPHRINE 8 MG/250ML KIT 250 ML IV SCH ×2 (11:15→14:15)
[2020-08-31] MEDS ORDERED: ACETAMINOPHEN 500 MG TAB PO ONE (11:45)
[2020-08-31] MEDS ORDERED: POTASSIUM EFFERVESENT TAB 25 MEQ PO ONE (14:15)
[2020-08-31] MEDS ORDERED: MORPHINE SULF INJ 2 MG/ML SYRINGE 1ML IV PRN (14:15)
[2020-08-31] MEDS ORDERED: NITROGLYCERIN 0.4 MG SL TAB SL PRN (14:15)
[2020-08-31] MEDS: AMIODARONE 450mg/250ml AE 250 ML IV SCH (16:19)
[2020-08-31] MEDS ORDERED: ONDANSETRON HCL 4 MG/2 ML VIAL ONE (17:26)
[2020-08-31] MEDS ORDERED: ONDANSETRON HCL 4 MG/2 ML VIAL IV PRN (17:30)
[2020-08-31] MEDS: HYDROCORTISONE 10 MG TAB PO SCH (22:02)
[2020-09-01] VITALS (59 sets, daily range): BP systolic 87–127; BP diastolic 42–87
[2020-09-01] MEDS: AMIODARONE 450mg/250ml AE 250 ML IV SCH (06:30)
[2020-09-01] MEDS: LEVOTHYROXINE SODIUM 88 MCG TAB PO SCH (07:00)
[2020-09-01 08:00] LABS: Basophils # (auto) 0 10 ^3/uL (0-0.2); Basophils % (auto) 0.1 % (0.0-2.0); Eosinophils # (auto) 0.2 10 ^3/uL (0-0.8); Eosinophils % (auto) 1.4 % (0.0-7.0); Hematocrit 43.1 % (41.0-53.0); Lymphocytes # (auto) 1.4 10 ^3/uL (0.4-5.4); Lymphocytes % (auto) 10.8 % (10.0-50.0); Mean Corpuscular Hemoglobin 32.6 pg (28.0-32.0); Mean Corpuscular Hgb Conc. 34.8 g/dL (32.0-36.0); Mean Corpuscular Volume 93.8 fL (80.0-100.0); Monocytes # (auto) 1.1 10 ^3/uL (0-1.3); Monocytes % (auto) 8.9 % (0.0-12.0); Neutrophils # (auto) 10.2 10 ^3/uL (1.6-8.6); Neutrophils % (auto) 78.8 % (37.0-80.0); Nucleated Red Blood Cells % 0.1 %; Platelet Count (auto) 165 10^3/uL (140-450); Red Cell Distribution Width 13.4 % (11.8-14.3); White Blood Cell 12.9 10^3/uL (4.4-10.8)
[2020-09-01 08:24] LABS: Albumin 3.3 g/dL (3.4-5.0); BUN/Creatinine Ratio 15.1; Potassium 3.4 mmol/L (3.5-5.1)
[2020-09-01 08:27] LABS: Bilirubin, Total 2.3 mg/dL (0.2-1.0); Total Protein 7.6 g/dL (6.4-8.2)
[2020-09-01] MEDS: cefTRIAXone 1GM/50ML D5W 50 ML IV SCH (09:18)
[2020-09-01] MEDS: AMIODARONE HCL 200 MG TAB PO SCH (09:41)
[2020-09-01] MEDS: PANTOPRAZOLE 40 MG TAB PO SCH (09:41)
[2020-09-01] MEDS: ASPirin-EC 81 mg tab PO SCH (09:41)
[2020-09-01] MEDS: FLUDROCORTISONE ACETATE 0.1 MG TAB PO SCH (09:41)
[2020-09-01] MEDS: HYDROCORTISONE 10 MG TAB PO SCH ×2 (10:22→21:23)
[2020-09-01] MEDS ORDERED: POTASSIUM CHL 20 Meq TABLET PO ONE (10:30)
[2020-09-01] MEDS ORDERED: FUROSEMIDE 40 MG TAB PO ONE (11:45)
[2020-09-01 14:09] LABS: Urine Bacteria FEW /hpf (None Seen); Urine Blood 1+ /uL (Negative); Urine Hyaline Cast FEW /lpf (0 - 2); Urine Mucus FEW (None Seen); Urine Specific Gravity 1.011 (1.001-1.035); Urine WBC <1 /hpf (0 - 3)
[2020-09-01] MEDS: FUROSEMIDE 40 MG TAB PO SCH (18:14)
[2020-09-02] MEDS ORDERED: ALBUTEROL SULF 2.5 MG/0.5ML(0.5%) NEB SOLN NEB PRN (06:30)
[2020-09-02] MEDS: LEVOTHYROXINE SODIUM 88 MCG TAB PO SCH (06:37)
[2020-09-02] MEDS: FUROSEMIDE 40 MG TAB PO SCH ×2 (06:38→19:00)
[2020-09-02 07:07] VITALS: BP 99/66
[2020-09-02 09:00] VITALS: BP 110/78
[2020-09-02] MEDS: cefTRIAXone 1GM/50ML D5W 50 ML IV SCH (09:37)
[2020-09-02] MEDS: AMIODARONE HCL 200 MG TAB PO SCH (09:37)
[2020-09-02] MEDS: PANTOPRAZOLE 40 MG TAB PO SCH (09:37)
[2020-09-02] MEDS: FLUDROCORTISONE ACETATE 0.1 MG TAB PO SCH (09:37)
[2020-09-02] MEDS: ASPirin-EC 81 mg tab PO SCH (09:37)
[2020-09-02] MEDS: HYDROCORTISONE 10 MG TAB PO SCH ×2 (10:00→22:07)
[2020-09-02 10:10] LABS: Free T4 (Free Thyroxine) 0.75 ng/dL (0.89-1.76)
[2020-09-02 12:14] LABS: Basophils # (auto) 0 10 ^3/uL (0-0.2); Basophils % (auto) 0.3 % (0.0-2.0); Eosinophils # (auto) 0.3 10 ^3/uL (0-0.8); Eosinophils % (auto) 3.4 % (0.0-7.0); Hematocrit 41.8 % (41.0-53.0); Hemoglobin 14.4 g/dL (13.5-17.5); Lymphocytes # (auto) 1.5 10 ^3/uL (0.4-5.4); Lymphocytes % (auto) 17.8 % (10.0-50.0); Mean Corpuscular Hemoglobin 32.2 pg (28.0-32.0); Mean Corpuscular Hgb Conc. 34.5 g/dL (32.0-36.0); Mean Corpuscular Volume 93.5 fL (80.0-100.0); Monocytes % (auto) 12.3 % (0.0-12.0); Neutrophils # (auto) 5.4 10 ^3/uL (1.6-8.6); Neutrophils % (auto) 66.2 % (37.0-80.0); Nucleated Red Blood Cells % 0.1 %; Platelet Count (auto) 170 10^3/uL (140-450); Red Blood Cells 4.47 10^6/uL (4.5-5.90); Red Cell Distribution Width 13.5 % (11.8-14.3); White Blood Cell 8.2 10^3/uL (4.4-10.8)
[2020-09-02 12:35] LABS: Chloride 102 mmol/L (98-107); Potassium 3.6 mmol/L (3.5-5.1); Sodium 136 mmol/L (136-145)
[2020-09-02 12:49] LABS: Alanine Aminotransferase 11 U/L (16-61); Albumin 3.2 g/dL (3.4-5.0); Alkaline Phosphatase 48 U/L (45-117); Anion Gap 8 (5-15); Aspartate Aminotransferase 22 U/L (15-37); BUN/Creatinine Ratio 16.2; Bilirubin, Total 1.1 mg/dL (0.2-1.0); Blood Urea Nitrogen 17 mg/dL (7-18); Calcium 8.3 mg/dL (8.5-10.1); Carbon Dioxide 26 mmol/L (21-32); GFR African American 96 mL/min; GFR Non-African American 79 mL/min; Glucose 103 mg/dL (74-106); Total Protein 7.6 g/dL (6.4-8.2)
[2020-09-02 13:00] VITALS: BP 120/75
[2020-09-02 17:00] VITALS: BP 121/77
[2020-09-02 22:00] VITALS: BP 118/76
[2020-09-03 05:50] VITALS: BP 114/73
[2020-09-03 06:03] LABS: Basophils # (auto) 0 10 ^3/uL (0-0.2); Basophils % (auto) 0.2 % (0.0-2.0); Eosinophils # (auto) 0.2 10 ^3/uL (0-0.8); Eosinophils % (auto) 2.7 % (0.0-7.0); Hematocrit 40.1 % (41.0-53.0); Hemoglobin 14.1 g/dL (13.5-17.5); Lymphocytes # (auto) 1.2 10 ^3/uL (0.4-5.4); Lymphocytes % (auto) 17.4 % (10.0-50.0); Mean Corpuscular Hemoglobin 32.5 pg (28.0-32.0); Mean Corpuscular Hgb Conc. 35.1 g/dL (32.0-36.0); Mean Corpuscular Volume 92.5 fL (80.0-100.0); Monocytes # (auto) 0.5 10 ^3/uL (0-1.3); Monocytes % (auto) 7.4 % (0.0-12.0); Neutrophils # (auto) 4.8 10 ^3/uL (1.6-8.6); Neutrophils % (auto) 72.3 % (37.0-80.0); Platelet Count (auto) 167 10^3/uL (140-450); Red Blood Cells 4.34 10^6/uL (4.5-5.90); Red Cell Distribution Width 13.1 % (11.8-14.3); White Blood Cell 6.6 10^3/uL (4.4-10.8)
[2020-09-03] MEDS: FUROSEMIDE 40 MG TAB PO SCH ×2 (06:03→18:55)
[2020-09-03 06:12] LABS: INR 1.11 (0.9-1.15); Partial Thromboplastin Time 30.7 sec (23.0-31.2)
[2020-09-03 06:20] LABS: Chloride 104 mmol/L (98-107); Potassium 3.3 mmol/L (3.5-5.1); Sodium 138 mmol/L (136-145)
[2020-09-03] MEDS: LEVOTHYROXINE SODIUM 88 MCG TAB PO SCH (06:28)
[2020-09-03 06:29] LABS: Anion Gap 6 (5-15); BUN/Creatinine Ratio 21.9; Blood Urea Nitrogen 21 mg/dL (7-18); Calcium 8.5 mg/dL (8.5-10.1); Carbon Dioxide 28 mmol/L (21-32); GFR African American 107 mL/min; GFR Non-African American 88 mL/min; Glucose 91 mg/dL (74-106)
[2020-09-03 08:00] VITALS: BP 113/60
[2020-09-03] MEDS ORDERED: POTASSIUM CHL 20 Meq TABLET PO ONE (08:00)
[2020-09-03 09:00] VITALS: BP 113/60
[2020-09-03] MEDS: cefTRIAXone 1GM/50ML D5W 50 ML IV SCH (09:08)
[2020-09-03] MEDS: AMIODARONE HCL 200 MG TAB PO SCH (09:09)
[2020-09-03] MEDS: FLUDROCORTISONE ACETATE 0.1 MG TAB PO SCH (09:09)
[2020-09-03] MEDS: ASPirin-EC 81 mg tab PO SCH (09:09)
[2020-09-03] MEDS ORDERED: DAPAGLIFLOZIN 5 MG TAB PO SCH (10:00)
[2020-09-03] MEDS: PANTOPRAZOLE 40 MG TAB PO SCH (11:00)
[2020-09-03] MEDS: HYDROCORTISONE 10 MG TAB PO SCH ×2 (11:00→22:43)
[2020-09-03 12:38] LABS: Urine WBC None Seen /hpf (0 - 3)
[2020-09-03 12:45] LABS: Urine Bacteria NONE SEEN /hpf (None Seen); Urine Blood Negative /uL (Negative); Urine Hyaline Cast FEW /lpf (0 - 2); Urine Mucus FEW (None Seen); Urine Specific Gravity 1.007 (1.001-1.035)
[2020-09-03 13:00] VITALS: BP 120/80
[2020-09-03] MEDS ORDERED: DAPAGLIFLOZIN 5 MG TAB PO ONE (15:00)
[2020-09-03] MEDS ORDERED: ACETAMINOPHEN 325 MG TAB PO PRN (16:30)
[2020-09-03] MEDS ORDERED: HYDROcodone-ACET 5/325MG TAB PO PRN (16:30)
[2020-09-03 17:00] VITALS: BP 118/73
[2020-09-03 19:14] LABS: BUN/Creatinine Ratio 20.4; Calcium 8.5 mg/dL (8.5-10.1)
[2020-09-03 22:00] VITALS: BP 133/59
[2020-09-04 05:41] VITALS: BP 154/90
[2020-09-04] MEDS: FUROSEMIDE 40 MG TAB PO SCH (05:56)
[2020-09-04 06:07] VITALS: BP 120/76
[2020-09-04 06:48] LABS: Basophils # (auto) 0 10 ^3/uL (0-0.2); Basophils % (auto) 0.5 % (0.0-2.0); Eosinophils # (auto) 0.3 10 ^3/uL (0-0.8); Eosinophils % (auto) 5.1 % (0.0-7.0); Hematocrit 41.4 % (41.0-53.0); Hemoglobin 14.3 g/dL (13.5-17.5); Lymphocytes # (auto) 1.2 10 ^3/uL (0.4-5.4); Lymphocytes % (auto) 19.8 % (10.0-50.0); Mean Corpuscular Hemoglobin 32.1 pg (28.0-32.0); Mean Corpuscular Hgb Conc. 34.7 g/dL (32.0-36.0); Mean Corpuscular Volume 92.5 fL (80.0-100.0); Monocytes # (auto) 0.5 10 ^3/uL (0-1.3); Monocytes % (auto) 8.1 % (0.0-12.0); Neutrophils # (auto) 4.1 10 ^3/uL (1.6-8.6); Neutrophils % (auto) 66.5 % (37.0-80.0); Platelet Count (auto) 204 10^3/uL (140-450); Red Blood Cells 4.47 10^6/uL (4.5-5.90); Red Cell Distribution Width 13.6 % (11.8-14.3); White Blood Cell 6.1 10^3/uL (4.4-10.8)
[2020-09-04 07:00] LABS: INR 1.06 (0.9-1.15); Partial Thromboplastin Time 29.9 sec (23.0-31.2)
[2020-09-04] MEDS ORDERED: LEVOTHYROXINE SODIUM 112 MCG TAB PO SCH (07:00)
[2020-09-04 07:30] LABS: Calcium 8.6 mg/dL (8.5-10.1)
[2020-09-04] MEDS ORDERED: IOHEXOL 350 MG/ML 100ML IJ ONE ×2 (07:42→07:57)
[2020-09-04] MEDS ORDERED: LIDOCAINE 2%HCL (LOCAL ANESTH.) INJ 20ML MDV ONE (07:42)
[2020-09-04] MEDS ORDERED: HEPARIN SODIUM (PORCINE) 5000 UNITS/ML 1ML VIAL ONE (07:56)
[2020-09-04] MEDS ORDERED: ANGIOMAX 250 MG VIAL IV ONE (07:56)
[2020-09-04] MEDS ORDERED: VERAPAMIL 2.5MG/ML INJ 2ML VIAL IV ONE (07:57)
[2020-09-04] MEDS ORDERED: fentaNYL CITRATE 100 MCG/2 ML VL ONE (07:57)
[2020-09-04] MEDS ORDERED: MIDAZOLAM HCL 1MG/1ML-2 ML VIAL ONE (07:57)
[2020-09-04] MEDS ORDERED: SODIUM CHL 0.9% 0 ML ONE (07:57)
[2020-09-04 09:16] VITALS: BP 113/73
[2020-09-04] MEDS: cefTRIAXone 1GM/50ML D5W 50 ML IV SCH (09:56)
[2020-09-04] MEDS: FLUDROCORTISONE ACETATE 0.1 MG TAB PO SCH (09:57)
[2020-09-04] MEDS: ASPirin-EC 81 mg tab PO SCH (09:57)
[2020-09-04] MEDS: AMIODARONE HCL 200 MG TAB PO SCH (09:57)
[2020-09-04] MEDS: PANTOPRAZOLE 40 MG TAB PO SCH (09:58)
[2020-09-04] MEDS: HYDROCORTISONE 10 MG TAB PO SCH (10:00)
[2020-09-04] MEDS ORDERED: DAPAGLIFLOZIN 5 MG TAB PO SCH (10:00)
[2020-09-04 12:53] VITALS: BP 112/74
[2020-09-04 16:29] VITALS: BP 116/48
[2020-09-04 18:28] VITALS: BP 116/48
== END 2020-09-04 19:05 | disposition home or self-care (01) | DRG 720 ==
LOC: EDBD 09:10 → ER 09:10 → EDUNIT# 09:10 → OVERFLOW 09:11 → OBSVTOIN 09:11 → ICU WEST 18:12 → TELE-EAST 09-01 22:36
PROVIDERS: ADMIT Nurse Practitioner Acute Care; ATTEND Internal Medicine
PROC: 4B02XTZ Measurement of Cardiac Defibrillator, External Approach (ICD-10-PCS; 2020-08-31)
PROC: B2111ZZ Fluoroscopy of Multiple Coronary Arteries using Low Osmolar Contrast (ICD-10-PCS; principal; 2020-09-04)
PROC: 4A023N7 Measurement of Cardiac Sampling and Pressure, Left Heart, Percutaneous Approach (ICD-10-PCS; 2020-09-04)
PROC: B2151ZZ Fluoroscopy of Left Heart using Low Osmolar Contrast (ICD-10-PCS; 2020-09-04)
DX: A41.9 Sepsis, unspecified organism (principal); I21.A1 Myocardial infarction type 2; I47.2 Ventricular tachycardia; K12.2 Cellulitis and abscess of mouth; E66.9 Obesity, unspecified; I42.8 Other cardiomyopathies; E03.9 Hypothyroidism, unspecified; Z95.810 Presence of automatic (implantable) cardiac defibrillator; I49.3 Ventricular premature depolarization; E87.1 Hypo-osmolality and hyponatremia; I50.43 Acute on chronic combined systolic (congestive) and diastolic (congestive) heart failure; E87.6 Hypokalemia; R65.21 Severe sepsis with septic shock; I11.0 Hypertensive heart disease with heart failure; I07.1 Rheumatic tricuspid insufficiency; I25.10 Atherosclerotic heart disease of native coronary artery without angina pectoris; Z79.899 Other long term (current) drug therapy; Z82.3 Family history of stroke; Z82.49 Family history of ischemic heart disease and other diseases of the circulatory system; Z83.3 Family history of diabetes mellitus; Z68.41 Body mass index [BMI] 40.0-44.9, adult; Z88.1 Allergy status to other antibiotic agents; E27.1 Primary adrenocortical insufficiency
CPT/HCPCS: 36415; 36600; 71045; 80048; 80053; 81001; 82805; 83735; 83880; 84439; 84443; 84481; 84484; 85025; 85379; 85610; 85730; 86850; 86900; 86901; 87040; 87081; 93005; 93306; 94640; 96361; 96365; 96367; 96368; 96375; 99152; 99291; G0378; J0696; J2250; J2405; J7060

== ENCOUNTER 2021-11-18 14:39 | Inpatient (IN) | payer MEDICAID ==
[~2021-11-18] VITALS: Ht 170.2 cm; Wt 136.3 kg
[~2021-11-18 14:39] MED LIST changes: +DIPH-599 PO; -DIPH25CA46 PO
[2021-11-18 15:52] LABS: Basophils # (auto) 0 10 ^3/uL (0-0.2); Basophils % (auto) 0.3 % (0.0-2.0); Eosinophils # (auto) 0.1 10 ^3/uL (0-0.8); Eosinophils % (auto) 1.1 % (0.0-7.0); Hematocrit 50.7 % (41.0-53.0); Hemoglobin 17.6 g/dL (13.5-17.5); Lymphocytes # (auto) 1.4 10 ^3/uL (0.4-5.4); Lymphocytes % (auto) 19.8 % (10.0-50.0); Mean Corpuscular Hemoglobin 31.4 pg (28.0-32.0); Mean Corpuscular Hgb Conc. 34.7 g/dL (32.0-36.0); Mean Corpuscular Volume 90.5 fL (80.0-100.0); Monocytes # (auto) 0.9 10 ^3/uL (0-1.3); Monocytes % (auto) 12.7 % (0.0-12.0); Neutrophils # (auto) 4.6 10 ^3/uL (1.6-8.6); Neutrophils % (auto) 66.1 % (37.0-80.0); Nucleated Red Blood Cells % 0.1 %; Red Blood Cells 5.61 10^6/uL (4.5-5.90); Red Cell Distribution Width 13.9 % (11.8-14.3)
[2021-11-18 16:10] LABS: Albumin 3.8 g/dL (3.4-5.0); Anion Gap 7 (5-15); Blood Alcohol < 3.0 mg/dL (0-5); Blood Urea Nitrogen 11 mg/dL (7-18); Calcium 8.7 mg/dL (8.5-10.1); Carbon Dioxide 27 mmol/L (21-32); Chloride 103 mmol/L (98-107); Glucose 91 mg/dL (74-106); Potassium 3.9 mmol/L (3.5-5.1); Sodium 137 mmol/L (136-145)
[2021-11-18 16:16] LABS: Alanine Aminotransferase 38 U/L (16-61); Alkaline Phosphatase 74 U/L (45-117); Aspartate Aminotransferase 54 U/L (15-37); BUN/Creatinine Ratio 7.9; Bilirubin, Total 1.2 mg/dL (0.2-1.0); GFR African American 69 mL/min; GFR Non-African American 57 mL/min
[2021-11-18] MEDS ORDERED: ACETAMINOPHEN 650 MG RECT SUPP PR ONE (17:30)
[2021-11-18] MEDS ORDERED: MORPHINE SULFATE INJECTION 2 MG/ML SYRG IV PRN ×3 (18:15→19:00)
[2021-11-18] MEDS ORDERED: NITROGLYCERIN 0.4 MG SL TAB SL PRN ×2 (18:15→19:00)
[2021-11-18] MEDS ORDERED: ACETAMINOPHEN 500 MG TAB PO PRN (19:00)
[2021-11-18] MEDS ORDERED: HYDROcodone-ACET 5/325MG TAB PO PRN (19:00)
[2021-11-18] MEDS ORDERED: LORazepam 0.5 MG TAB PO PRN (19:00)
[2021-11-18] MEDS ORDERED: METOCLOPRAMIDE HCL 5MG/ml INJ 2ml VIAL IV PRN (19:00)
[2021-11-18] MEDS ORDERED: REMDESIVIR PER PHARMACY 0 ML IV SCH (19:00)
[2021-11-18] MEDS ORDERED: ALUM & MAG HYDROX-SIMETH LIQ(MAALOX) 30 ML PO PRN (19:00)
[2021-11-18] MEDS ORDERED: diphenhdrAMINE HCL 25 MG CAP PO PRN (19:00)
[2021-11-18] MEDS ORDERED: DEXTROSE (50%) 50ML SYRG IV PRN (19:00)
[2021-11-18] MEDS ORDERED: DOCUSATE SOD 100 MG CAP PO PRN (19:00)
[2021-11-18] MEDS: ASCORBIC ACID 1,000 MG TAB PO SCH (19:16)
[2021-11-18] MEDS: CHOLECALCIFEROL (VITD3) 2,000 UNIT CAP/TAB PO SCH (19:16)
[2021-11-18] MEDS: DexAMETHasone SOD PHOS 10MG/1ML VIAL INJ IV SCH (19:16)
[2021-11-18] MEDS: IVERMECTIN 3 MG TAB PO SCH (20:10)
[2021-11-18] MEDS: ZINC SULFATE 220mg CAP or TAB PO SCH (20:10)
[2021-11-18] MEDS: InsuLIN REG 1unit/0.01ml Soln (100units/ml) SC SCH (22:00)
[2021-11-18] MEDS: ACCU-CHEK COMFORT CURVE STRIP VI SCH (22:19)
[2021-11-18] MEDS: BUDESONIDE (INHALATION) 180 MCG IH IN SCH (22:25)
[2021-11-18] MEDS: ALBUTEROL SULF HFA 90MCG INH 200DOSE IN PRN (22:25)
[2021-11-18] MEDS ORDERED: REMDESIVIR 200 MG in NS 210ml LOADING DOSE ADULT IV ONE (22:30)
[2021-11-18 22:56] LABS: Basophils # (auto) 0 10 ^3/uL (0-0.2); Basophils % (auto) 0.3 % (0.0-2.0); Eosinophils # (auto) 0 10 ^3/uL (0-0.8); Eosinophils % (auto) 0.2 % (0.0-7.0); Hematocrit 48.7 % (41.0-53.0); Lymphocytes # (auto) 0.6 10 ^3/uL (0.4-5.4); Lymphocytes % (auto) 7.3 % (10.0-50.0); Mean Corpuscular Hemoglobin 31.4 pg (28.0-32.0); Mean Corpuscular Volume 89.9 fL (80.0-100.0); Monocytes # (auto) 0.8 10 ^3/uL (0-1.3); Monocytes % (auto) 8.6 % (0.0-12.0); Neutrophils # (auto) 7.4 10 ^3/uL (1.6-8.6); Neutrophils % (auto) 83.6 % (37.0-80.0); Nucleated Red Blood Cells % 0.3 %; Red Blood Cells 5.42 10^6/uL (4.5-5.90); Red Cell Distribution Width 13.8 % (11.8-14.3); White Blood Cell 8.8 10^3/uL (4.4-10.8)
[2021-11-18 23:09] LABS: Albumin 3.7 g/dL (3.4-5.0); Calcium 8.7 mg/dL (8.5-10.1); Magnesium 2.3 mg/dL (1.6-2.6); Potassium 3.5 mmol/L (3.5-5.1)
[2021-11-18 23:18] LABS: BUN/Creatinine Ratio 11.2; Bilirubin, Total 1.4 mg/dL (0.2-1.0); CRP High Sensitivity 3.12 mg/dL (< 0.3); Total Protein 7.7 g/dL (6.4-8.2)
[2021-11-18] MEDS: DOXYCYCLINE 100MG/250ML 250 ML IV SCH (23:32)
[2021-11-18] MEDS: ATORVASTATIN 20 MG TAB PO SCH (23:32)
[2021-11-18] MEDS: SACUBITRIL-VALSARTAN 24mg/26mg TAB PO SCH (23:32)
[2021-11-18] MEDS: FAMOTIDINE 20 MG TAB PO SCH (23:32)
[2021-11-18] MEDS: ENOXAPARIN SOD 40 MG/0.4 ML SYRINGE SC SCH (23:32)
[2021-11-19 00:05] LABS: Cholesterol 142 mg/dL (< 200)
[2021-11-19 00:06] LABS: Thyroid Stimulating Hormone 0.11 uIU/mL (0.358-3.74)
[2021-11-19 00:07] LABS: HDL Cholesterol 39 mg/dL (40-59); LDL Cholesterol 97 mg/dL (< 100); Triglycerides 101 mg/dL (< 150)
[2021-11-19 04:45] VITALS: BP 141/78
[2021-11-19] MEDS ORDERED: PRE5T PO (04:53)
[2021-11-19] MEDS ORDERED: LEVO100T8 PO (04:53)
[2021-11-19] MEDS ORDERED: ISOS10TA2 PO (04:54)
[2021-11-19] MEDS ORDERED: POTA10TA51 PO (04:57)
[2021-11-19] MEDS ORDERED: HYDR10TA26 PO (04:57)
[2021-11-19 05:00] VITALS: BP 108/66
[2021-11-19] MEDS: BUMETANIDE 2.5mg/10ml (0.25 mg/ml) INJ IV SCH ×2 (06:23→18:00)
[2021-11-19] MEDS: LEVOTHYROXINE SODIUM 88 MCG TAB PO SCH (06:23)
[2021-11-19] MEDS: InsuLIN REG 1unit/0.01ml Soln (100units/ml) SC SCH ×4 (06:37→22:07)
[2021-11-19] MEDS: ACCU-CHEK COMFORT CURVE STRIP VI SCH ×4 (06:38→22:06)
[2021-11-19] MEDS: ALBUTEROL SULF HFA 90MCG INH 200DOSE IN PRN (07:58)
[2021-11-19] MEDS: BUDESONIDE (INHALATION) 180 MCG IH IN SCH ×2 (07:58→23:17)
[2021-11-19 08:14] LABS: Basophils # (auto) 0 10 ^3/uL (0-0.2); Basophils % (auto) 0.2 % (0.0-2.0); Eosinophils # (auto) 0 10 ^3/uL (0-0.8); Hematocrit 41.5 % (41.0-53.0); Lymphocytes # (auto) 0.8 10 ^3/uL (0.4-5.4); Lymphocytes % (auto) 11.5 % (10.0-50.0); Mean Corpuscular Hemoglobin 27.5 pg (28.0-32.0); Mean Corpuscular Hgb Conc. 33.7 g/dL (32.0-36.0); Mean Corpuscular Volume 81.8 fL (80.0-100.0); Monocytes # (auto) 0.4 10 ^3/uL (0-1.3); Monocytes % (auto) 5.8 % (0.0-12.0); Neutrophils # (auto) 5.8 10 ^3/uL (1.6-8.6); Neutrophils % (auto) 82.5 % (37.0-80.0); Red Blood Cells 5.08 10^6/uL (4.5-5.90)
[2021-11-19] MEDS: CARVEDILOL 3.125 MG TAB PO SCH ×2 (08:25→18:00)
[2021-11-19 08:33] LABS: INR 1.09 (0.9-1.15); Partial Thromboplastin Time 29.1 sec (23.6-33.0)
[2021-11-19 09:38] LABS: Potassium 4.3 mmol/L (3.5-5.1)
[2021-11-19] MEDS ORDERED: HYDROCORTISONE 10 MG TAB PO SCH (10:00)
[2021-11-19 10:06] LABS: Albumin 2.7 g/dL (3.4-5.0); BUN/Creatinine Ratio 14.6; Bilirubin, Total 0.4 mg/dL (0.2-1.0); Calcium 7.9 mg/dL (8.5-10.1); Magnesium 2.2 mg/dL (1.6-2.6); Phosphorus 2.6 mg/dL (2.5-4.90); Total Protein 7.5 g/dL (6.4-8.2)
[2021-11-19 10:23] VITALS: BP 125/83
[2021-11-19] MEDS: DOXYCYCLINE 100MG/250ML 250 ML IV SCH ×2 (10:41→22:06)
[2021-11-19] MEDS: DexAMETHasone SOD PHOS 10MG/1ML VIAL INJ IV SCH (10:41)
[2021-11-19] MEDS: ASPirin-EC 81 mg tab PO SCH (10:42)
[2021-11-19] MEDS: ZINC SULFATE 220mg CAP or TAB PO SCH (10:42)
[2021-11-19] MEDS: SACUBITRIL-VALSARTAN 24mg/26mg TAB PO SCH ×2 (10:47→22:05)
[2021-11-19] MEDS: FAMOTIDINE 20 MG TAB PO SCH ×2 (10:48→22:05)
[2021-11-19] MEDS: FLUDROCORTISONE ACETATE 0.1 MG TAB PO SCH (10:48)
[2021-11-19] MEDS: ENOXAPARIN SOD 40 MG/0.4 ML SYRINGE SC SCH ×2 (10:49→22:06)
[2021-11-19] MEDS: ASCORBIC ACID 1,000 MG TAB PO SCH (10:49)
[2021-11-19] MEDS: IVERMECTIN 3 MG TAB PO SCH (10:49)
[2021-11-19] MEDS: CHOLECALCIFEROL (VITD3) 2,000 UNIT CAP/TAB PO SCH (10:49)
[2021-11-19 13:00] VITALS: BP 126/75
[2021-11-19] MEDS: REMDESIVIR 100mg 100 MG in SODIUM CHL 0.9% 230 ML IV SCH (15:37)
[2021-11-19 16:57] VITALS: BP 124/77
[2021-11-19 22:00] VITALS: BP 105/59
[2021-11-19] MEDS: ATORVASTATIN 20 MG TAB PO SCH (22:05)
[2021-11-20] MEDS: ALBUTEROL SULF HFA 90MCG INH 200DOSE IN PRN ×2 (01:20→09:36)
[2021-11-20 05:00] VITALS: BP 106/61
[2021-11-20] MEDS: ACCU-CHEK COMFORT CURVE STRIP VI SCH ×4 (06:30→21:59)
[2021-11-20] MEDS: InsuLIN REG 1unit/0.01ml Soln (100units/ml) SC SCH ×4 (06:30→22:07)
[2021-11-20] MEDS: BUMETANIDE 2.5mg/10ml (0.25 mg/ml) INJ IV SCH ×2 (06:33→17:34)
[2021-11-20] MEDS: LEVOTHYROXINE SODIUM 88 MCG TAB PO SCH (06:34)
[2021-11-20] MEDS: CARVEDILOL 3.125 MG TAB PO SCH ×2 (08:00→17:35)
[2021-11-20 08:38] LABS: Urine Bacteria NONE SEEN /hpf (None Seen); Urine Blood TRACE /uL (Negative); Urine Specific Gravity 1.011 (1.001-1.035); Urine WBC <1 /hpf (0 - 3)
[2021-11-20 09:00] VITALS: BP 109/51
[2021-11-20 09:35] LABS: Alcohol, Urine < 3.0 mg/dL (0-10); Amphetamine Screen, Urine NEGATIVE (NEGATIVE); Barbiturate Scree,Urine NEGATIVE (NEGATIVE); Benzodiazephine Screen, Urine NEGATIVE (NEGATIVE); Cannabinoid Screen, Urine NEGATIVE (NEGATIVE); Cocaine Screen, Urine NEGATIVE (NEGATIVE); Opiate Scree,Urine NEGATIVE (NEGATIVE); Phencyclidine Screen, Urine NEGATIVE (NEGATIVE)
[2021-11-20] MEDS: BUDESONIDE (INHALATION) 180 MCG IH IN SCH ×2 (09:36→21:00)
[2021-11-20] MEDS: DOXYCYCLINE 100MG/250ML 250 ML IV SCH (10:03)
[2021-11-20] MEDS: DexAMETHasone SOD PHOS 10MG/1ML VIAL INJ IV SCH (10:03)
[2021-11-20] MEDS: ZINC SULFATE 220mg CAP or TAB PO SCH (10:04)
[2021-11-20] MEDS: ENOXAPARIN SOD 40 MG/0.4 ML SYRINGE SC SCH ×2 (10:04→21:59)
[2021-11-20] MEDS: CHOLECALCIFEROL (VITD3) 2,000 UNIT CAP/TAB PO SCH (10:04)
[2021-11-20] MEDS: ASPirin-EC 81 mg tab PO SCH (10:04)
[2021-11-20] MEDS: FLUDROCORTISONE ACETATE 0.1 MG TAB PO SCH (10:04)
[2021-11-20] MEDS: IVERMECTIN 3 MG TAB PO SCH (10:04)
[2021-11-20] MEDS: FAMOTIDINE 20 MG TAB PO SCH ×2 (10:04→21:59)
[2021-11-20] MEDS: ASCORBIC ACID 1,000 MG TAB PO SCH (10:04)
[2021-11-20] MEDS: SACUBITRIL-VALSARTAN 24mg/26mg TAB PO SCH ×2 (10:04→21:58)
[2021-11-20 13:00] VITALS: BP 94/44
[2021-11-20] MEDS: REMDESIVIR 100mg 100 MG in SODIUM CHL 0.9% 230 ML IV SCH (14:48)
[2021-11-20 17:00] VITALS: BP 119/70
[2021-11-20] MEDS: ATORVASTATIN 20 MG TAB PO SCH (21:58)
[2021-11-20] MEDS: DOXYCYCLINE 100 MG TAB/CAP PO SCH (21:59)
[2021-11-20 22:00] VITALS: BP 108/65
[2021-11-21 05:00] VITALS: BP 121/73
[2021-11-21] MEDS: BUMETANIDE 2.5mg/10ml (0.25 mg/ml) INJ IV SCH (06:11)
[2021-11-21] MEDS: LEVOTHYROXINE SODIUM 88 MCG TAB PO SCH (06:12)
[2021-11-21] MEDS: InsuLIN REG 1unit/0.01ml Soln (100units/ml) SC SCH ×2 (06:23→12:07)
[2021-11-21] MEDS: ACCU-CHEK COMFORT CURVE STRIP VI SCH ×2 (06:24→12:05)
[2021-11-21] MEDS: ALBUTEROL SULF HFA 90MCG INH 200DOSE IN PRN (07:48)
[2021-11-21] MEDS: BUDESONIDE (INHALATION) 180 MCG IH IN SCH (07:48)
[2021-11-21] MEDS: CARVEDILOL 3.125 MG TAB PO SCH (08:00)
[2021-11-21 08:17] LABS: Albumin 3.7 g/dL (3.4-5.0); Calcium 8.2 mg/dL (8.5-10.1); Potassium 3.8 mmol/L (3.5-5.1)
[2021-11-21 08:20] LABS: BUN/Creatinine Ratio 28.2; Total Protein 7.8 g/dL (6.4-8.2)
[2021-11-21 09:00] VITALS: BP 94/50
[2021-11-21] MEDS ORDERED: SACU1TAB PO (09:40)
[2021-11-21] MEDS ORDERED: ALBUAER3 IN (09:43)
[2021-11-21] MEDS ORDERED: FLUD0.1T2 PO (09:43)
[2021-11-21] MEDS: DexAMETHasone SOD PHOS 10MG/1ML VIAL INJ IV SCH (09:54)
[2021-11-21] MEDS: ZINC SULFATE 220mg CAP or TAB PO SCH (09:54)
[2021-11-21] MEDS: SACUBITRIL-VALSARTAN 24mg/26mg TAB PO SCH (09:54)
[2021-11-21] MEDS: ASPirin-EC 81 mg tab PO SCH (09:54)
[2021-11-21] MEDS: DOXYCYCLINE 100 MG TAB/CAP PO SCH (09:55)
[2021-11-21] MEDS: FAMOTIDINE 20 MG TAB PO SCH (09:55)
[2021-11-21] MEDS: FLUDROCORTISONE ACETATE 0.1 MG TAB PO SCH (09:55)
[2021-11-21] MEDS: IVERMECTIN 3 MG TAB PO SCH (09:55)
[2021-11-21] MEDS: ASCORBIC ACID 1,000 MG TAB PO SCH (09:56)
[2021-11-21] MEDS: ENOXAPARIN SOD 40 MG/0.4 ML SYRINGE SC SCH (09:56)
[2021-11-21] MEDS: CHOLECALCIFEROL (VITD3) 2,000 UNIT CAP/TAB PO SCH (09:56)
[2021-11-21] MEDS ORDERED: POTA10TA51 PO (11:33)
[2021-11-21 13:00] VITALS: BP 98/58
[2021-11-21] MEDS ORDERED: DOX100T PO (13:03)
[2021-11-21 13:54] VITALS: BP 98/58
== END 2021-11-21 15:24 | disposition home or self-care (01) | DRG 137 ==
LOC: ER 14:39 → EDBD 14:39 → TELE 18:09 → TELE-EAST 11-19 03:02
PROVIDERS: ADMIT Hospitalist; ATTEND Internal Medicine
PROC: XW033E5 Introduction of Remdesivir Anti-infective into Peripheral Vein, Percutaneous Approach, New Technology Group 5 (ICD-10-PCS; principal; 2021-11-18)
DX: U07.1 COVID-19 (principal); J96.01 Acute respiratory failure with hypoxia; J12.82 Pneumonia due to coronavirus disease 2019; N17.0 Acute kidney failure with tubular necrosis; I50.23 Acute on chronic systolic (congestive) heart failure; D89.839 Cytokine release syndrome, grade unspecified; I42.8 Other cardiomyopathies; I13.0 Hypertensive heart and chronic kidney disease with heart failure and stage 1 through stage 4 chronic kidney disease, or unspecified chronic kidney disease; D75.1 Secondary polycythemia; E11.22 Type 2 diabetes mellitus with diabetic chronic kidney disease; E11.40 Type 2 diabetes mellitus with diabetic neuropathy, unspecified; N18.2 Chronic kidney disease, stage 2 (mild); K76.0 Fatty (change of) liver, not elsewhere classified; F17.200 Nicotine dependence, unspecified, uncomplicated; E78.5 Hyperlipidemia, unspecified; J98.11 Atelectasis; E03.9 Hypothyroidism, unspecified; E66.01 Morbid (severe) obesity due to excess calories; Z68.42 Body mass index [BMI] 45.0-49.9, adult; Z71.3 Dietary counseling and surveillance; Z79.899 Other long term (current) drug therapy; Z83.3 Family history of diabetes mellitus; Z86.73 Personal history of transient ischemic attack (TIA), and cerebral infarction without residual deficits; Z95.810 Presence of automatic (implantable) cardiac defibrillator; Z23 Encounter for immunization
CPT/HCPCS: 36415; 36600; 70450; 71045; 80053; 80061; 80307; 80320; 81001; 82306; 82728; 82805; 82962; 83036; 83605; 83615; 83735; 83880; 84100; 84443; 84484; 85025; 85379; 85610; 85730; 86141; 87040; 87086; 87426; 93005; 94640; 96365; 96375; G0378; J1100; J1815; J3490

== ENCOUNTER 2021-11-26 01:09 | Emergency (ER) | payer MEDICAID ==
[~2021-11-26] VITALS: Ht 170.2 cm; Wt 61.7 kg
[~2021-11-26 01:09] MED LIST changes: +ALBUAER3 IN; -ASPI-543 PO; -DIPH-599 PO; +DOX100T PO; -FAMO-12 PO; -FERR-20 PO; -FLUC200T35 PO; -FLUD0.1T2 PO; -HYDR-4623 PO; +HYDR10TA26 PO; +ISOS10TA2 PO; +LEVO100T8 PO; -LEVO88TA4 PO; +POTA10TA51 PO; +PRE5T PO; -PRED20TA2 PO
[2021-11-26] MEDS ORDERED: SODIUM CHLORIDE 0.9% 1,000 ML IV ONE (03:15)
[2021-11-26 03:49] LABS: Basophils # (auto) 0 10 ^3/uL (0-0.2); Basophils % (auto) 0.3 % (0.0-2.0); Eosinophils # (auto) 0.1 10 ^3/uL (0-0.8); Eosinophils % (auto) 0.9 % (0.0-7.0); Hematocrit 50.8 % (41.0-53.0); Hemoglobin 17.4 g/dL (13.5-17.5); Lymphocytes # (auto) 1.4 10 ^3/uL (0.4-5.4); Lymphocytes % (auto) 17.6 % (10.0-50.0); Mean Corpuscular Hemoglobin 31.2 pg (28.0-32.0); Mean Corpuscular Hgb Conc. 34.3 g/dL (32.0-36.0); Mean Corpuscular Volume 90.9 fL (80.0-100.0); Monocytes % (auto) 13.4 % (0.0-12.0); Neutrophils # (auto) 5.3 10 ^3/uL (1.6-8.6); Neutrophils % (auto) 67.8 % (37.0-80.0); Nucleated Red Blood Cells % 0.2 %; Red Blood Cells 5.58 10^6/uL (4.5-5.90); Red Cell Distribution Width 14.1 % (11.8-14.3); White Blood Cell 7.8 10^3/uL (4.4-10.8)
[2021-11-26 04:05] LABS: Albumin 3.3 g/dL (3.4-5.0); Calcium 8.6 mg/dL (8.5-10.1); Magnesium 2.7 mg/dL (1.6-2.6)
[2021-11-26 04:12] LABS: BUN/Creatinine Ratio 10.2; Bilirubin, Total 1.7 mg/dL (0.2-1.0); Total Protein 7.2 g/dL (6.4-8.2)
[2021-11-26 04:18] LABS: Potassium 2.7 mmol/L (3.5-5.1)
[2021-11-26] MEDS ORDERED: POTASSIUM CHL 20 Meq TABLET PO ONE (04:45)
[2021-11-26] MEDS ORDERED: cefTRIAXone 1GM/50ML D5W 50 ML IV ONE (06:30)
[2021-11-26] MEDS ORDERED: IOHEXOL 350 MG/ML 100ML IJ ONE (07:41)
[2021-11-26 10:23] LABS: Urine Bacteria NONE SEEN /hpf (None Seen); Urine Blood 1+ /uL (Negative); Urine Mucus FEW (None Seen); Urine Specific Gravity 1.026 (1.001-1.035); Urine WBC 2 /hpf (0 - 3)
[2021-11-26] MEDS ORDERED: AZITHROMYCIN 500MG/ 250ML 250 ML IV ONE (13:00)
[2021-11-26] MEDS ORDERED: FUROSEMIDE 40 MG/4 ML VIAL IV ONE (13:00)
[2021-11-26] MEDS ORDERED: SPIRONOLACTONE 25 MG TAB PO ONE (13:00)
[2021-11-26 14:41] VITALS: BP 141/86
[2021-11-26 16:12] LABS: BUN/Creatinine Ratio 11.6; Calcium 8.1 mg/dL (8.5-10.1); Potassium 3.4 mmol/L (3.5-5.1)
[2021-11-26] MEDS ORDERED: POTASSIUM EFFERVESENT TAB 25 MEQ PO ONE (16:30)
== END 2021-11-26 16:51 | disposition home or self-care (01) ==
LOC: EDUNIT# 01:09 → EDBD 01:09 → ER 01:12
DX: U07.1 COVID-19 (principal); E87.6 Hypokalemia; R09.89 Other specified symptoms and signs involving the circulatory and respiratory systems; K80.20 Calculus of gallbladder without cholecystitis without obstruction; E46 Unspecified protein-calorie malnutrition; I11.0 Hypertensive heart disease with heart failure; I50.9 Heart failure, unspecified; E03.9 Hypothyroidism, unspecified; Z68.21 Body mass index [BMI] 21.0-21.9, adult; Z95.0 Presence of cardiac pacemaker
CPT/HCPCS: 36415; 71045; 71275; 80048; 80053; 81001; 83735; 84484; 85025; 85379; 87426; 93005; 96361; 96365; 96366; 96367; 96375; 99285; J0456; J0696; J1940; J7030; Q9967

== ENCOUNTER 2021-11-29 07:59 | Inpatient (IN) | payer MEDICAID ==
[~2021-11-29] VITALS: Ht 167.6 cm; Wt 97.5 kg
[2021-11-29 09:28] LABS: Basophils # (auto) 0.1 10 ^3/uL (0-0.2); Basophils % (auto) 0.9 % (0.0-2.0); Eosinophils # (auto) 0.1 10 ^3/uL (0-0.8); Eosinophils % (auto) 0.8 % (0.0-7.0); Hematocrit 44.8 % (41.0-53.0); Hemoglobin 15.4 g/dL (13.5-17.5); Lymphocytes # (auto) 1.2 10 ^3/uL (0.4-5.4); Lymphocytes % (auto) 9.9 % (10.0-50.0); Mean Corpuscular Hemoglobin 31.3 pg (28.0-32.0); Mean Corpuscular Hgb Conc. 34.3 g/dL (32.0-36.0); Mean Corpuscular Volume 91.3 fL (80.0-100.0); Monocytes # (auto) 1.3 10 ^3/uL (0-1.3); Monocytes % (auto) 11.3 % (0.0-12.0); Neutrophils % (auto) 77.1 % (37.0-80.0); Nucleated Red Blood Cells % 0.1 %; Red Blood Cells 4.91 10^6/uL (4.5-5.90); Red Cell Distribution Width 13.8 % (11.8-14.3); White Blood Cell 11.7 10^3/uL (4.4-10.8)
[2021-11-29 09:42] LABS: Albumin 2.9 g/dL (3.4-5.0); Potassium 4.7 mmol/L (3.5-5.1)
[2021-11-29 09:47] LABS: BUN/Creatinine Ratio 5.8; Bilirubin, Total 1.8 mg/dL (0.2-1.0); Total Protein 6.8 g/dL (6.4-8.2)
[2021-11-29] MEDS ORDERED: HYDROCORTISONE SOD SUCC 100 MG/2ML INJ VIAL IV ONE (10:15)
[2021-11-29] MEDS ORDERED: SODIUM CHLORIDE 0.9% 1,000 ML IV ONE ×4 (10:15→15:15)
[2021-11-29] MEDS ORDERED: AZITHROMYCIN 500MG/ 250ML 250 ML IV ONE (11:00)
[2021-11-29] MEDS ORDERED: ZINC SULFATE 220mg CAP or TAB PO ONE (11:00)
[2021-11-29] MEDS ORDERED: ASCORBIC ACID 500 MG TAB PO ONE (11:00)
[2021-11-29] MEDS ORDERED: CHOLECALCIFEROL (VITD3) 2,000 UNIT CAP/TAB PO ONE (11:00)
[2021-11-29] MEDS ORDERED: cefTRIAXone 1GM/50ML D5W 50 ML IV ONE (11:00)
[2021-11-29] MEDS ORDERED: NOREPINEPHRINE 8 MG/250ML KIT 250 ML IV ONE (13:20)
[2021-11-29] MEDS: NOREPINEPHRINE 8 MG/250ML KIT 250 ML IV SCH (13:28)
[2021-11-29 14:55] LABS: Magnesium 2.3 mg/dL (1.6-2.6)
[2021-11-29] MEDS ORDERED: ASPirin 81 mg TAB PO ONE (15:15)
[2021-11-29] MEDS ORDERED: ENOXAPARIN SOD 40 MG/0.4 ML SYRINGE SC ONE (15:15)
[2021-11-29 15:20] LABS: INR 1.17 (0.9-1.15); Partial Thromboplastin Time 30.2 sec (23.6-33.0)
[2021-11-29 15:37] LABS: Urine Bacteria FEW /hpf (None Seen); Urine Blood 2+ /uL (Negative); Urine Specific Gravity 1.007 (1.001-1.035); Urine WBC 2 /hpf (0 - 3)
[2021-11-29] MEDS: ALBUTEROL SULF HFA 90MCG INH 200DOSE IN SCH (22:00)
[2021-11-29] MEDS: ASCORBIC ACID 500 MG TAB PO SCH (22:00)
[2021-11-30] VITALS (8 sets, daily range): BP systolic 96–119; BP diastolic 30–66
[2021-11-30] MEDS ORDERED: MORPHINE SULFATE INJECTION 2 MG/ML SYRG IV PRN (02:45)
[2021-11-30] MEDS: ALBUTEROL SULF HFA 90MCG INH 200DOSE IN SCH ×3 (06:00→20:02)
[2021-11-30 08:08] LABS: Basophils # (auto) 0 10 ^3/uL (0-0.2); Basophils % (auto) 0.1 % (0.0-2.0); Eosinophils # (auto) 0 10 ^3/uL (0-0.8); Hemoglobin 16.7 g/dL (13.5-17.5); Lymphocytes # (auto) 1.1 10 ^3/uL (0.4-5.4); Lymphocytes % (auto) 6.4 % (10.0-50.0); Mean Corpuscular Hemoglobin 30.9 pg (28.0-32.0); Mean Corpuscular Volume 90.8 fL (80.0-100.0); Monocytes # (auto) 1.4 10 ^3/uL (0-1.3); Monocytes % (auto) 8.3 % (0.0-12.0); Neutrophils # (auto) 14.5 10 ^3/uL (1.6-8.6); Neutrophils % (auto) 85.2 % (37.0-80.0); Nucleated Red Blood Cells % 0.3 %; Red Blood Cells 5.39 10^6/uL (4.5-5.90); Red Cell Distribution Width 13.8 % (11.8-14.3)
[2021-11-30 08:27] LABS: BUN/Creatinine Ratio 11.3; Calcium 7.8 mg/dL (8.5-10.1); Potassium 4.4 mmol/L (3.5-5.1)
[2021-11-30] MEDS: ASCORBIC ACID 500 MG TAB PO SCH ×2 (10:34→23:38)
[2021-11-30] MEDS: CHOLECALCIFEROL (VITD3) 2,000 UNIT CAP/TAB PO SCH (10:34)
[2021-11-30] MEDS: ZINC SULFATE 220mg CAP or TAB PO SCH (10:34)
[2021-11-30] MEDS: NOREPINEPHRINE 8 MG/250ML KIT 250 ML IV SCH (20:13)
[2021-11-30] MEDS ORDERED: HALOPERIDOL 1 MG TAB PO SCH (22:00)
[2021-12-01] MEDS: ALBUTEROL SULF HFA 90MCG INH 200DOSE IN SCH ×3 (06:00→18:54)
[2021-12-01] MEDS: NOREPINEPHRINE 8 MG/250ML KIT 250 ML IV SCH (06:04)
[2021-12-01] MEDS: CHOLECALCIFEROL (VITD3) 2,000 UNIT CAP/TAB PO SCH (09:41)
[2021-12-01] MEDS: ASCORBIC ACID 500 MG TAB PO SCH ×2 (09:41→22:00)
[2021-12-01] MEDS: ZINC SULFATE 220mg CAP or TAB PO SCH (09:41)
[2021-12-01] MEDS ORDERED: HEPARIN SODIUM (PORCINE) 5000 UNITS/ML 1ML VIAL IV SCH (10:00)
[2021-12-01] MEDS: SODIUM CHLORIDE 0.9% 1,000 ML IV SCH ×2 (11:41→16:18)
[2021-12-01] MEDS: HEPARIN SODIUM (PORCINE) 5000 UNITS/ML 1ML VIAL SC SCH ×2 (11:42→22:00)
[2021-12-01 12:08] LABS: Potassium 3.4 mmol/L (3.5-5.1)
[2021-12-01 12:14] LABS: BUN/Creatinine Ratio 14.9; Calcium 8.5 mg/dL (8.5-10.1)
[2021-12-01 12:39] LABS: Basophils # (auto) 0 10 ^3/uL (0-0.2); Basophils % (auto) 0.2 % (0.0-2.0); Eosinophils # (auto) 0 10 ^3/uL (0-0.8); Eosinophils % (auto) 0.1 % (0.0-7.0); Hematocrit 45.4 % (41.0-53.0); Hemoglobin 15.6 g/dL (13.5-17.5); Lymphocytes # (auto) 1.8 10 ^3/uL (0.4-5.4); Lymphocytes % (auto) 9.1 % (10.0-50.0); Mean Corpuscular Hemoglobin 31.2 pg (28.0-32.0); Mean Corpuscular Hgb Conc. 34.3 g/dL (32.0-36.0); Mean Corpuscular Volume 90.8 fL (80.0-100.0); Monocytes # (auto) 1.6 10 ^3/uL (0-1.3); Monocytes % (auto) 8.1 % (0.0-12.0); Neutrophils # (auto) 16.1 10 ^3/uL (1.6-8.6); Neutrophils % (auto) 82.5 % (37.0-80.0); Nucleated Red Blood Cells % 0.1 %; Red Cell Distribution Width 13.9 % (11.8-14.3); White Blood Cell 19.5 10^3/uL (4.4-10.8)
[2021-12-01] MEDS: PIPERACILLIN-TAZOB 3.375GM 100 ML IV SCH ×2 (13:50→22:00)
[2021-12-01] MEDS: HYDROCORTISONE SOD SUCC 100 MG/2ML INJ VIAL IV SCH ×2 (13:50→22:00)
[2021-12-01] MEDS ORDERED: POTASSIUM CHL 20 Meq TABLET PO ONE (15:30)
[2021-12-02] MEDS: NOREPINEPHRINE 8 MG/250ML KIT 250 ML IV SCH (01:07)
[2021-12-02] MEDS: HYDROCORTISONE SOD SUCC 100 MG/2ML INJ VIAL IV SCH ×3 (06:00→22:30)
[2021-12-02] MEDS: PIPERACILLIN-TAZOB 3.375GM 100 ML IV SCH ×3 (08:00→22:30)
[2021-12-02] MEDS: SODIUM CHLORIDE 0.9% 1,000 ML IV SCH ×2 (08:00→17:14)
[2021-12-02] MEDS ORDERED: SODIUM CHLORIDE 0.9% 500 ML IV ONE (09:30)
[2021-12-02] MEDS: ZINC SULFATE 220mg CAP or TAB PO SCH (10:07)
[2021-12-02] MEDS: ASCORBIC ACID 500 MG TAB PO SCH ×2 (10:07→22:30)
[2021-12-02] MEDS: CHOLECALCIFEROL (VITD3) 2,000 UNIT CAP/TAB PO SCH (10:07)
[2021-12-02] MEDS: HEPARIN SODIUM (PORCINE) 5000 UNITS/ML 1ML VIAL SC SCH ×2 (10:08→22:30)
[2021-12-02 13:59] LABS: Basophils # (auto) 0.1 10 ^3/uL (0-0.2); Basophils % (auto) 0.3 % (0.0-2.0); Eosinophils # (auto) 0 10 ^3/uL (0-0.8); Hematocrit 38.2 % (41.0-53.0); Hemoglobin 13.1 g/dL (13.5-17.5); Lymphocytes # (auto) 0.6 10 ^3/uL (0.4-5.4); Lymphocytes % (auto) 3.7 % (10.0-50.0); Mean Corpuscular Hemoglobin 31.2 pg (28.0-32.0); Mean Corpuscular Hgb Conc. 34.3 g/dL (32.0-36.0); Mean Corpuscular Volume 90.8 fL (80.0-100.0); Monocytes # (auto) 0.8 10 ^3/uL (0-1.3); Monocytes % (auto) 4.8 % (0.0-12.0); Neutrophils # (auto) 14.8 10 ^3/uL (1.6-8.6); Neutrophils % (auto) 91.2 % (37.0-80.0); Nucleated Red Blood Cells % 0.1 %; Red Blood Cells 4.21 10^6/uL (4.5-5.90); Red Cell Distribution Width 13.9 % (11.8-14.3); White Blood Cell 16.3 10^3/uL (4.4-10.8)
[2021-12-02 14:26] LABS: BUN/Creatinine Ratio 16.9; Calcium 7.4 mg/dL (8.5-10.1); Potassium 3.6 mmol/L (3.5-5.1)
[2021-12-03] MEDS: SODIUM CHLORIDE 0.9% 1,000 ML IV SCH ×3 (02:45→22:45)
[2021-12-03] MEDS: HYDROCORTISONE SOD SUCC 100 MG/2ML INJ VIAL IV SCH ×3 (06:15→22:51)
[2021-12-03] MEDS: PIPERACILLIN-TAZOB 3.375GM 100 ML IV SCH ×3 (06:15→22:51)
[2021-12-03] MEDS: CHOLECALCIFEROL (VITD3) 2,000 UNIT CAP/TAB PO SCH (10:28)
[2021-12-03] MEDS: ASCORBIC ACID 500 MG TAB PO SCH ×2 (10:28→22:49)
[2021-12-03] MEDS: ZINC SULFATE 220mg CAP or TAB PO SCH (10:28)
[2021-12-03] MEDS: HEPARIN SODIUM (PORCINE) 5000 UNITS/ML 1ML VIAL SC SCH ×2 (10:29→22:52)
[2021-12-03] MEDS ORDERED: SODIUM CHLORIDE 0.9% 500 ML IV ONE (11:15)
[2021-12-03] MEDS: ALBUTEROL SULF HFA 90MCG INH 200DOSE IN PRN ×2 (13:55→18:20)
[2021-12-03 21:02] LABS: Basophils # (auto) 0 10 ^3/uL (0-0.2); Basophils % (auto) 0.1 % (0.0-2.0); Eosinophils # (auto) 0 10 ^3/uL (0-0.8); Hematocrit 44.2 % (41.0-53.0); Hemoglobin 15.1 g/dL (13.5-17.5); Lymphocytes # (auto) 0.9 10 ^3/uL (0.4-5.4); Lymphocytes % (auto) 7.2 % (10.0-50.0); Mean Corpuscular Hemoglobin 31.3 pg (28.0-32.0); Mean Corpuscular Hgb Conc. 34.2 g/dL (32.0-36.0); Mean Corpuscular Volume 91.5 fL (80.0-100.0); Monocytes # (auto) 0.8 10 ^3/uL (0-1.3); Monocytes % (auto) 6.4 % (0.0-12.0); Neutrophils # (auto) 10.5 10 ^3/uL (1.6-8.6); Neutrophils % (auto) 86.3 % (37.0-80.0); Nucleated Red Blood Cells % 0.1 %; Red Blood Cells 4.83 10^6/uL (4.5-5.90); Red Cell Distribution Width 13.8 % (11.8-14.3); White Blood Cell 12.1 10^3/uL (4.4-10.8)
[2021-12-03 21:33] LABS: Calcium 8.9 mg/dL (8.5-10.1); Potassium 3.8 mmol/L (3.5-5.1)
[2021-12-03] MEDS: NOREPINEPHRINE 8 MG/250ML KIT 250 ML IV SCH (22:50)
[2021-12-04] MEDS: PIPERACILLIN-TAZOB 3.375GM 100 ML IV SCH ×3 (06:16→23:05)
[2021-12-04] MEDS: HYDROCORTISONE SOD SUCC 100 MG/2ML INJ VIAL IV SCH ×3 (06:45→23:49)
[2021-12-04] MEDS: SODIUM CHLORIDE 0.9% 1,000 ML IV SCH ×2 (08:45→23:06)
[2021-12-04 09:58] LABS: Basophils # (auto) 0 10 ^3/uL (0-0.2); Basophils % (auto) 0.2 % (0.0-2.0); Eosinophils # (auto) 0 10 ^3/uL (0-0.8); Eosinophils % (auto) 0.1 % (0.0-7.0); Hematocrit 44.3 % (41.0-53.0); Hemoglobin 15.4 g/dL (13.5-17.5); Lymphocytes # (auto) 0.5 10 ^3/uL (0.4-5.4); Lymphocytes % (auto) 4.6 % (10.0-50.0); Mean Corpuscular Hemoglobin 31.6 pg (28.0-32.0); Mean Corpuscular Hgb Conc. 34.8 g/dL (32.0-36.0); Monocytes # (auto) 0.5 10 ^3/uL (0-1.3); Monocytes % (auto) 5.3 % (0.0-12.0); Neutrophils % (auto) 89.8 % (37.0-80.0); Nucleated Red Blood Cells % 0.2 %; Red Blood Cells 4.87 10^6/uL (4.5-5.90); Red Cell Distribution Width 13.7 % (11.8-14.3)
[2021-12-04 10:21] LABS: Calcium 8.6 mg/dL (8.5-10.1)
[2021-12-04 10:23] LABS: BUN/Creatinine Ratio 20.1
[2021-12-04] MEDS: CHOLECALCIFEROL (VITD3) 2,000 UNIT CAP/TAB PO SCH (10:36)
[2021-12-04] MEDS: ASCORBIC ACID 500 MG TAB PO SCH ×2 (10:36→23:05)
[2021-12-04] MEDS: ZINC SULFATE 220mg CAP or TAB PO SCH (10:36)
[2021-12-04] MEDS: FLUDROCORTISONE ACETATE 0.1 MG TAB PO SCH (10:36)
[2021-12-04] MEDS: HEPARIN SODIUM (PORCINE) 5000 UNITS/ML 1ML VIAL SC SCH ×2 (10:37→23:06)
[2021-12-04] MEDS: ALBUTEROL SULF HFA 90MCG INH 200DOSE IN PRN (18:08)
[2021-12-05] MEDS: SODIUM CHLORIDE 0.9% 1,000 ML IV SCH ×2 (06:25→15:15)
[2021-12-05] MEDS: ALBUTEROL SULF HFA 90MCG INH 200DOSE IN PRN (06:43)
[2021-12-05] MEDS: LEVOTHYROXINE SODIUM 100 MCG TAB PO SCH (07:04)
[2021-12-05] MEDS: PIPERACILLIN-TAZOB 3.375GM 100 ML IV SCH ×3 (07:07→22:41)
[2021-12-05] MEDS: HYDROCORTISONE SOD SUCC 100 MG/2ML INJ VIAL IV SCH ×3 (09:45→22:41)
[2021-12-05] MEDS: FLUDROCORTISONE ACETATE 0.1 MG TAB PO SCH (11:25)
[2021-12-05] MEDS: ZINC SULFATE 220mg CAP or TAB PO SCH (11:25)
[2021-12-05] MEDS: CHOLECALCIFEROL (VITD3) 2,000 UNIT CAP/TAB PO SCH (11:25)
[2021-12-05] MEDS: ASCORBIC ACID 500 MG TAB PO SCH ×2 (11:25→22:41)
[2021-12-05] MEDS: HEPARIN SODIUM (PORCINE) 5000 UNITS/ML 1ML VIAL SC SCH ×2 (12:09→22:42)
[2021-12-05 17:13] LABS: Basophils # (auto) 0 10 ^3/uL (0-0.2); Basophils % (auto) 0.5 % (0.0-2.0); Eosinophils # (auto) 0 10 ^3/uL (0-0.8); Eosinophils % (auto) 0.6 % (0.0-7.0); Hematocrit 41.2 % (41.0-53.0); Hemoglobin 14.1 g/dL (13.5-17.5); Lymphocytes # (auto) 1.1 10 ^3/uL (0.4-5.4); Lymphocytes % (auto) 18.5 % (10.0-50.0); Mean Corpuscular Hemoglobin 31.5 pg (28.0-32.0); Mean Corpuscular Hgb Conc. 34.1 g/dL (32.0-36.0); Mean Corpuscular Volume 92.3 fL (80.0-100.0); Monocytes # (auto) 0.6 10 ^3/uL (0-1.3); Monocytes % (auto) 9.9 % (0.0-12.0); Neutrophils # (auto) 4.3 10 ^3/uL (1.6-8.6); Neutrophils % (auto) 70.5 % (37.0-80.0); Nucleated Red Blood Cells % 0.2 %; Red Blood Cells 4.46 10^6/uL (4.5-5.90); Red Cell Distribution Width 13.9 % (11.8-14.3)
[2021-12-05 17:51] LABS: Anion Gap 7 (5-15); BUN/Creatinine Ratio 20.7; Blood Urea Nitrogen 24 mg/dL (7-18); Calcium 8.1 mg/dL (8.5-10.1); Carbon Dioxide 23 mmol/L (21-32); Chloride 112 mmol/L (98-107); GFR African American 85 mL/min; GFR Non-African American 70 mL/min; Glucose 112 mg/dL (74-106); Potassium 3.6 mmol/L (3.5-5.1); Sodium 142 mmol/L (136-145)
[2021-12-06] MEDS: SODIUM CHLORIDE 0.9% 1,000 ML IV SCH ×2 (00:45→11:55)
[2021-12-06 06:12] LABS: Basophils # (auto) 0 10 ^3/uL (0-0.2); Basophils % (auto) 1.3 % (0.0-2.0); Eosinophils # (auto) 0 10 ^3/uL (0-0.8); Eosinophils % (auto) 0.3 % (0.0-7.0); Hematocrit 42.4 % (41.0-53.0); Hemoglobin 14.1 g/dL (13.5-17.5); Lymphocytes # (auto) 0.5 10 ^3/uL (0.4-5.4); Lymphocytes % (auto) 13.2 % (10.0-50.0); Mean Corpuscular Hemoglobin 30.6 pg (28.0-32.0); Mean Corpuscular Hgb Conc. 33.2 g/dL (32.0-36.0); Mean Corpuscular Volume 92.1 fL (80.0-100.0); Monocytes # (auto) 0.2 10 ^3/uL (0-1.3); Neutrophils # (auto) 3.1 10 ^3/uL (1.6-8.6); Neutrophils % (auto) 81.2 % (37.0-80.0); Nucleated Red Blood Cells % 0.2 %; Red Blood Cells 4.61 10^6/uL (4.5-5.90); White Blood Cell 3.8 10^3/uL (4.4-10.8)
[2021-12-06 06:18] LABS: Calcium 8.7 mg/dL (8.5-10.1); Potassium 4.1 mmol/L (3.5-5.1)
[2021-12-06 06:20] LABS: BUN/Creatinine Ratio 18.6
[2021-12-06] MEDS: PIPERACILLIN-TAZOB 3.375GM 100 ML IV SCH ×2 (06:52→14:35)
[2021-12-06] MEDS: HYDROCORTISONE SOD SUCC 100 MG/2ML INJ VIAL IV SCH ×2 (06:52→14:35)
[2021-12-06] MEDS: ALBUTEROL SULF HFA 90MCG INH 200DOSE IN PRN (07:00)
[2021-12-06] MEDS: LEVOTHYROXINE SODIUM 100 MCG TAB PO SCH (07:36)
[2021-12-06] MEDS ORDERED: PROPOFOL 0 ML IV ONE (08:20)
[2021-12-06] MEDS: FLUDROCORTISONE ACETATE 0.1 MG TAB PO SCH (10:28)
[2021-12-06] MEDS: CHOLECALCIFEROL (VITD3) 2,000 UNIT CAP/TAB PO SCH (10:28)
[2021-12-06] MEDS: ASCORBIC ACID 500 MG TAB PO SCH (10:28)
[2021-12-06] MEDS: ZINC SULFATE 220mg CAP or TAB PO SCH (10:28)
[2021-12-06] MEDS: HEPARIN SODIUM (PORCINE) 5000 UNITS/ML 1ML VIAL SC SCH (10:29)
[2021-12-06 12:00] VITALS: BP 119/64
[2021-12-06] MEDS ORDERED: PNEUMOCOCCAL VACC POLYS 25 MCG/0.5 ML VIAL IM ONE (15:00)
[2021-12-06] MEDS ORDERED: INFLUENZA QUAD 2021-2022 0.5 ML SYRG IM ONE (15:00)
[2021-12-06 16:00] VITALS: BP 128/77
[2021-12-06] MEDS ORDERED: FLUD0.1T2 PO (18:25)
[2021-12-06] MEDS ORDERED: ASCO500T11 PO (19:01)
[2021-12-06] MEDS ORDERED: CHOL1CAP47 PO (19:01)
[2021-12-06] MEDS ORDERED: FLU01T PO (19:01)
[2021-12-06] MEDS ORDERED: AMOX-277 PO (19:01)
[2021-12-06] MEDS ORDERED: ZINC220C8 PO (19:01)
[2021-12-06] MEDS ORDERED: HYDR10T PO (19:01)
[2021-12-06 19:35] VITALS: BP 128/77
== END 2021-12-06 20:20 | disposition home or self-care (01) | DRG 720 ==
LOC: EDBD 07:59 → EDUNIT# 07:59 → ER 07:59 → TELE 11-30 02:34 → TELE-EAST 12-06 11:54
PROVIDERS: ADMIT Hospitalist; ATTEND Hospitalist
PROC: 05H933Z Insertion of Infusion Device into Right Brachial Vein, Percutaneous Approach (ICD-10-PCS; principal; 2021-12-04)
PROC: B54MZZA Ultrasonography of Right Upper Extremity Veins, Guidance (ICD-10-PCS; 2021-12-04)
DX: A41.89 Other specified sepsis (principal); J96.01 Acute respiratory failure with hypoxia; J12.82 Pneumonia due to coronavirus disease 2019; N17.0 Acute kidney failure with tubular necrosis; U07.1 COVID-19; E44.0 Moderate protein-calorie malnutrition; R65.21 Severe sepsis with septic shock; N18.9 Chronic kidney disease, unspecified; E27.1 Primary adrenocortical insufficiency; N13.9 Obstructive and reflux uropathy, unspecified; E66.9 Obesity, unspecified; I13.0 Hypertensive heart and chronic kidney disease with heart failure and stage 1 through stage 4 chronic kidney disease, or unspecified chronic kidney disease; I50.9 Heart failure, unspecified; R79.89 Other specified abnormal findings of blood chemistry; J44.0 Chronic obstructive pulmonary disease with (acute) lower respiratory infection; J98.11 Atelectasis; Z82.3 Family history of stroke; Z82.49 Family history of ischemic heart disease and other diseases of the circulatory system; Z95.810 Presence of automatic (implantable) cardiac defibrillator; Z68.34 Body mass index [BMI] 34.0-34.9, adult; Z88.1 Allergy status to other antibiotic agents; Z83.3 Family history of diabetes mellitus
CPT/HCPCS: 36415; 70450; 71045; 76775; 80048; 80053; 81001; 82570; 82728; 83605; 83735; 84156; 84166; 84443; 84484; 85025; 85379; 85610; 85730; 87040; 87081; 87426; 93005; 93306; 93970; 94640; 96361; 96365; 96368; 96372; 96375; G0378; J0696; J2543; J2704

== ENCOUNTER 2022-01-23 14:13 | Inpatient (IN) | payer MEDICAID ==
[~2022-01-23] VITALS: Ht 170.2 cm; Wt 134.4 kg
[~2022-01-23 14:13] MED LIST changes: +AMOX-277 PO; +ASCO500T11 PO; -CAR3125T PO; +CHOL1CAP47 PO; -DOX100T PO; +FLU01T PO; -FURO1TAB31 PO; -HYDR10TA26 PO; -ISOS10TA2 PO; -POTA10TA51 PO; -SACU1TAB PO; +ZINC220C8 PO
[2022-01-23] MEDS ORDERED: ALBUTEROL SULF 2.5 MG/0.5ML(0.5%) NEB SOLN HHN ONE (15:00)
[2022-01-23] MEDS ORDERED: IPRATROPIUM BROM 0.5 MG/2.5ML INH SOL HHN ONE (15:00)
[2022-01-23] MEDS ORDERED: methylPREDNISolone SOD SUCC 125 MG/2 ML VL IV ONE (15:00)
[2022-01-23 16:43] LABS: Basophils # (auto) 0.1 10 ^3/uL (0-0.2); Basophils % (auto) 1.1 % (0.0-2.0); Eosinophils # (auto) 0.1 10 ^3/uL (0-0.8); Eosinophils % (auto) 1.6 % (0.0-7.0); Hematocrit 47.3 % (41.0-53.0); Hemoglobin 16.4 g/dL (13.5-17.5); Lymphocytes # (auto) 1.3 10 ^3/uL (0.4-5.4); Lymphocytes % (auto) 19.2 % (10.0-50.0); Mean Corpuscular Hemoglobin 32.2 pg (28.0-32.0); Mean Corpuscular Hgb Conc. 34.7 g/dL (32.0-36.0); Mean Corpuscular Volume 92.6 fL (80.0-100.0); Monocytes # (auto) 0.9 10 ^3/uL (0-1.3); Monocytes % (auto) 13.2 % (0.0-12.0); Neutrophils # (auto) 4.5 10 ^3/uL (1.6-8.6); Neutrophils % (auto) 64.9 % (37.0-80.0); Nucleated Red Blood Cells % 0.2 %; Red Cell Distribution Width 15.1 % (11.8-14.3); White Blood Cell 6.9 10^3/uL (4.4-10.8)
[2022-01-23 16:58] LABS: Albumin 3.6 g/dL (3.4-5.0); BUN/Creatinine Ratio 9.1; Calcium 8.4 mg/dL (8.5-10.1); Potassium 3.1 mmol/L (3.5-5.1)
[2022-01-23 17:03] LABS: Bilirubin, Total 1.2 mg/dL (0.2-1.0); Total Protein 6.9 g/dL (6.4-8.2)
[2022-01-23] MEDS ORDERED: POTASSIUM CHL 20MEQ/100ML 100 ML IV ONE (20:30)
[2022-01-23] MEDS ORDERED: ONDANSETRON HCL 4 MG/2 ML VIAL IV PRN (22:00)
[2022-01-23] MEDS ORDERED: MORPHINE SULFATE INJECTION 2 MG/ML SYRG IV PRN (22:00)
[2022-01-23] MEDS ORDERED: NITROGLYCERIN 0.4 MG SL TAB SL PRN (22:00)
[2022-01-23] MEDS ORDERED: ALBUTEROL SULF 2.5 MG/0.5ML(0.5%) NEB SOLN NEB PRN (22:15)
[2022-01-23 23:22] VITALS: BP 111/60
[2022-01-24] MEDS ORDERED: ISOS10TA2 PO (02:36)
[2022-01-24] MEDS ORDERED: CARV3.1240 PO (02:36)
[2022-01-24] MEDS ORDERED: SACU1TAB PO (02:36)
[2022-01-24] MEDS ORDERED: LEV88T PO (02:36)
[2022-01-24] MEDS ORDERED: POTA-264 PO (02:36)
[2022-01-24] MEDS ORDERED: FURO40TA4 PO (02:36)
[2022-01-24] MEDS ORDERED: HYDR10TA26 PO (02:36)
[2022-01-24] MEDS ORDERED: PNEUMOCOCCAL VACC POLYS 25 MCG/0.5 ML VIAL IM ONE (03:30)
[2022-01-24] MEDS ORDERED: INFLUENZA QUAD 2021-2022 0.5 ML SYRG IM ONE (03:30)
[2022-01-24 05:40] VITALS: BP 116/69
[2022-01-24 06:36] LABS: Basophils # (auto) 0 10 ^3/uL (0-0.2); Basophils % (auto) 0.2 % (0.0-2.0); Eosinophils # (auto) 0 10 ^3/uL (0-0.8); Eosinophils % (auto) 0.1 % (0.0-7.0); Hematocrit 48.2 % (41.0-53.0); Hemoglobin 17.5 g/dL (13.5-17.5); Lymphocytes # (auto) 0.7 10 ^3/uL (0.4-5.4); Lymphocytes % (auto) 11.4 % (10.0-50.0); Mean Corpuscular Hgb Conc. 36.3 g/dL (32.0-36.0); Mean Corpuscular Volume 90.9 fL (80.0-100.0); Monocytes # (auto) 0.1 10 ^3/uL (0-1.3); Monocytes % (auto) 1.8 % (0.0-12.0); Neutrophils # (auto) 5.3 10 ^3/uL (1.6-8.6); Neutrophils % (auto) 86.5 % (37.0-80.0); Nucleated Red Blood Cells % 1.2 %; Red Cell Distribution Width 14.9 % (11.8-14.3); White Blood Cell 6.1 10^3/uL (4.4-10.8)
[2022-01-24 06:38] LABS: Calcium 8.9 mg/dL (8.5-10.1)
[2022-01-24 06:40] LABS: BUN/Creatinine Ratio 12.9
[2022-01-24] MEDS ORDERED: LEVOTHYROXINE SODIUM 100 MCG TAB PO SCH (07:00)
[2022-01-24 09:00] VITALS: BP 117/77
[2022-01-24] MEDS ORDERED: FLUDROCORTISONE ACETATE 0.1 MG TAB PO SCH (10:00)
[2022-01-24] MEDS ORDERED: HYDROCORTISONE 10 MG TAB PO SCH (10:00)
[2022-01-24] MEDS ORDERED: ENOXAPARIN SOD 40 MG/0.4 ML SYRINGE SC SCH (10:00)
[2022-01-24 13:00] VITALS: BP 108/59
[2022-01-24] MEDS ORDERED: METH4PAK PO (19:07)
[2022-01-24] MEDS ORDERED: ALBUAER3 IN (19:07)
== END 2022-01-24 20:05 | disposition home health service (06) | DRG 133 ==
LOC: EDUNIT# 14:13 → EDBD 14:13 → ER 14:13 → TELE 22:00 → TELE-EAST 23:47
PROVIDERS: ADMIT Hospitalist; ATTEND Internal Medicine
DX: J96.01 Acute respiratory failure with hypoxia (principal); I11.0 Hypertensive heart disease with heart failure; E27.1 Primary adrenocortical insufficiency; I50.9 Heart failure, unspecified; E87.6 Hypokalemia; U09.9 Post COVID-19 condition, unspecified; J98.11 Atelectasis; E03.9 Hypothyroidism, unspecified; F41.9 Anxiety disorder, unspecified; Z20.822 Contact with and (suspected) exposure to COVID-19; Z79.52 Long term (current) use of systemic steroids; Z79.899 Other long term (current) drug therapy; Z82.3 Family history of stroke; Z82.49 Family history of ischemic heart disease and other diseases of the circulatory system; Z83.3 Family history of diabetes mellitus; Z88.1 Allergy status to other antibiotic agents; Z28.21 Immunization not carried out because of patient refusal
CPT/HCPCS: 36415; 36600; 71045; 80048; 80053; 82805; 83880; 84484; 85025; 94640; 96365; 96375; 99291; G0378; J3480

== ENCOUNTER 2022-04-07 02:08 | Emergency (ER) | payer MEDICAID ==
[~2022-04-07] VITALS: Ht 170.2 cm; Wt 124.7 kg
[~2022-04-07 02:08] MED LIST changes: -AMOX-277 PO; -ASCO500T11 PO; +CARV3.1240 PO; -CHOL1CAP47 PO; +FURO40TA4 PO; -HYDR10T PO; +HYDR10TA26 PO; +ISOS10TA2 PO; +METH4PAK PO; -PRE5T PO; +SACU1TAB PO; -ZINC220C8 PO
[2022-04-07 02:10] VITALS: BP 98/56
[2022-04-07] MEDS ORDERED: KETOROLAC TROMETH 60MG/2ML VIAL IM ONE (03:30)
[2022-04-07] MEDS ORDERED: NAP500T PO (04:18)
== END 2022-04-07 04:37 | disposition home or self-care (01) ==
LOC: ER 02:08
DX: M19.071 Primary osteoarthritis, right ankle and foot (principal); I11.0 Hypertensive heart disease with heart failure; I50.9 Heart failure, unspecified; E03.9 Hypothyroidism, unspecified; Z95.0 Presence of cardiac pacemaker; Z79.899 Other long term (current) drug therapy; Z88.1 Allergy status to other antibiotic agents
CPT/HCPCS: 73600; 96372; 99283; J1885

== ENCOUNTER 2022-10-23 01:23 | Inpatient (IN) | payer MEDICAID ==
[2022-10-23] VITALS (7 sets, daily range): BP systolic 87–103; BP diastolic 46–60
[~2022-10-23] VITALS: Ht 170.2 cm; Wt 111.5 kg
[~2022-10-23 01:23] MED LIST changes: +NAP500T PO
[2022-10-23] MEDS ORDERED: SODIUM CHLORIDE 0.9% 2,000 ML IV ONE (02:30)
[2022-10-23 03:06] LABS: Basophils # (auto) 0.1 10 ^3/uL (0-0.2); Basophils % (auto) 0.8 % (0.0-2.0); Eosinophils # (auto) 0.7 10 ^3/uL (0-0.8); Eosinophils % (auto) 9.6 % (0.0-7.0); Hematocrit 25.3 % (41.0-53.0); Hemoglobin 8.8 g/dL (13.5-17.5); Lymphocytes # (auto) 2.8 10 ^3/uL (0.4-5.4); Lymphocytes % (auto) 39.5 % (10.0-50.0); Mean Corpuscular Hemoglobin 31.2 pg (28.0-32.0); Mean Corpuscular Hgb Conc. 34.9 g/dL (32.0-36.0); Mean Corpuscular Volume 89.6 fL (80.0-100.0); Monocytes # (auto) 0.6 10 ^3/uL (0-1.3); Monocytes % (auto) 8.9 % (0.0-12.0); Neutrophils # (auto) 2.9 10 ^3/uL (1.6-8.6); Neutrophils % (auto) 41.2 % (37.0-80.0); Red Blood Cells 2.83 10^6/uL (4.5-5.90); Red Cell Distribution Width 13.3 % (11.8-14.3); White Blood Cell 7.1 10^3/uL (4.4-10.8)
[2022-10-23 03:27] LABS: Calcium 7.9 mg/dL (8.5-10.1)
[2022-10-23 03:30] LABS: Bilirubin, Total 0.7 mg/dL (0.2-1.0); Total Protein 6.6 g/dL (6.4-8.2)
[2022-10-23] MEDS ORDERED: ONDANSETRON HCL 4 MG/2 ML VIAL IV PRN (10:45)
[2022-10-23] MEDS ORDERED: MORPHINE SULFATE INJ 2 MG/ml SYRG IV PRN (10:45)
[2022-10-23] MEDS: SODIUM CHLORIDE 0.9% 1,000 ML IV SCH (11:23)
[2022-10-23 11:53] LABS: Creatinine, Urine 78 mg/dL (30.0-125.0); Sodium Urine 49 mmol/L (40-220)
[2022-10-23 11:56] LABS: Urine Bacteria NONE SEEN /hpf (None Seen); Urine Blood Negative /uL (Negative); Urine Hyaline Cast MOD /lpf (0 - 2); Urine Mucus FEW (None Seen); Urine Specific Gravity 1.011 (1.001-1.035); Urine WBC <1 /hpf (0 - 3)
[2022-10-23] MEDS ORDERED: HYDR10TA26 PO (11:57)
[2022-10-23] MEDS ORDERED: POTA10TA51 PO (11:57)
[2022-10-23] MEDS ORDERED: HYDR0.5C EX (11:57)
[2022-10-24] MEDS: SODIUM CHLORIDE 0.9% 1,000 ML IV SCH ×2 (02:05→15:21)
[2022-10-24 05:00] VITALS: BP 91/53
[2022-10-24 05:12] LABS: Basophils # (auto) 0.1 10 ^3/uL (0-0.2); Basophils % (auto) 1.1 % (0.0-2.0); Eosinophils # (auto) 0.5 10 ^3/uL (0-0.8); Eosinophils % (auto) 10.3 % (0.0-7.0); Hematocrit 27.2 % (41.0-53.0); Hemoglobin 9.2 g/dL (13.5-17.5); Lymphocytes # (auto) 1.3 10 ^3/uL (0.4-5.4); Lymphocytes % (auto) 27.6 % (10.0-50.0); Mean Corpuscular Hemoglobin 30.6 pg (28.0-32.0); Mean Corpuscular Hgb Conc. 33.9 g/dL (32.0-36.0); Mean Corpuscular Volume 90.3 fL (80.0-100.0); Monocytes # (auto) 0.4 10 ^3/uL (0-1.3); Monocytes % (auto) 7.6 % (0.0-12.0); Neutrophils # (auto) 2.6 10 ^3/uL (1.6-8.6); Neutrophils % (auto) 53.4 % (37.0-80.0); Nucleated Red Blood Cells % 0.1 %; Red Blood Cells 3.01 10^6/uL (4.5-5.90); Red Cell Distribution Width 14.2 % (11.8-14.3); White Blood Cell 4.9 10^3/uL (4.4-10.8)
[2022-10-24 05:29] LABS: Potassium 4.5 mmol/L (3.5-5.1)
[2022-10-24 05:36] LABS: Albumin 2.9 g/dL (3.4-5.0); BUN/Creatinine Ratio 26.6; Bilirubin, Total 0.8 mg/dL (0.2-1.0); Calcium 8.1 mg/dL (8.5-10.1); Total Protein 6.6 g/dL (6.4-8.2)
[2022-10-24] MEDS: LEVOTHYROXINE SODIUM 100 MCG TAB PO SCH (07:06)
[2022-10-24 09:00] VITALS: BP 93/53
[2022-10-24] MEDS ORDERED: PANTOPRAZOLE 40 MG/10 ML VIAL INJ IV SCH (10:00)
[2022-10-24] MEDS ORDERED: methylPREDNISolone SOD SUCC 125 MG/2 ML VL IV ONE (12:00)
[2022-10-24 13:00] VITALS: BP 83/33
[2022-10-24 15:41] LABS: INR 1.15 (0.9-1.15)
[2022-10-24 17:00] VITALS: BP 96/48
[2022-10-24] MEDS: SUCRALFATE 1 GM/10 ML ORAL SUSP PO SCH ×2 (19:17→21:40)
[2022-10-24] MEDS: PANTOPRAZOLE 40 MG/10 ML VIAL INJ IV SCH (21:41)
[2022-10-24 22:00] VITALS: BP 101/53
[2022-10-25 05:00] VITALS: BP 133/52
[2022-10-25] MEDS: SODIUM CHLORIDE 0.9% 1,000 ML IV SCH ×2 (06:47→10:25)
[2022-10-25] MEDS: LEVOTHYROXINE SODIUM 100 MCG TAB PO SCH (07:09)
[2022-10-25] MEDS: SUCRALFATE 1 GM/10 ML ORAL SUSP PO SCH ×4 (07:09→23:03)
[2022-10-25 09:00] VITALS: BP 95/80
[2022-10-25] MEDS: HYDROCORTISONE 10 MG TAB PO SCH (10:40)
[2022-10-25] MEDS: PANTOPRAZOLE 40 MG/10 ML VIAL INJ IV SCH ×2 (10:40→23:04)
[2022-10-25 13:06] VITALS: BP 99/53
[2022-10-25] MEDS: metroNIDAZOLE 500MG/100ML 100 ML IV SCH ×2 (14:01→23:02)
[2022-10-25] MEDS: VANCOMYCIN HCL 125MG/5ML ORAL SOL GT SCH ×2 (14:27→17:37)
[2022-10-25 17:00] VITALS: BP 93/50
[2022-10-25 22:00] VITALS: BP 95/46
[2022-10-26 05:00] VITALS: BP 105/51
[2022-10-26] MEDS: VANCOMYCIN HCL 125MG/5ML ORAL SOL GT SCH ×2 (05:30)
[2022-10-26] MEDS: metroNIDAZOLE 500MG/100ML 100 ML IV SCH ×3 (06:21→21:36)
[2022-10-26] MEDS: LEVOTHYROXINE SODIUM 100 MCG TAB PO SCH (06:32)
[2022-10-26] MEDS: SUCRALFATE 1 GM/10 ML ORAL SUSP PO SCH ×4 (06:32→21:36)
[2022-10-26] MEDS ORDERED: NALOXONE HCL 0.4 MG/ML VIAL ONE (08:29)
[2022-10-26] MEDS ORDERED: FLUMAZENIL 0.1 MG/ML INJ 10ML MDV IV ONE (08:29)
[2022-10-26] MEDS ORDERED: LIDOCAINE VISCOUS 2% 15ML UD ONE (08:31)
[2022-10-26] MEDS ORDERED: SODIUM CHLORIDE LOCK 10 ML ONE (08:31)
[2022-10-26] MEDS ORDERED: diphenhdrAMINE HCL 50 MG/1 ML VL ONE (08:32)
[2022-10-26 09:00] VITALS: BP 113/54
[2022-10-26] MEDS: MIDAZOLAM HCL 5 MG/ML-1ML VIAL ONE ×2 (09:38→09:41)
[2022-10-26] MEDS: fentaNYL CITRATE 100 MCG/2 ML VL ONE ×2 (09:38→09:41)
[2022-10-26] MEDS: HYDROCORTISONE 10 MG TAB PO SCH (10:00)
[2022-10-26] MEDS: SODIUM CHLORIDE 0.9% 1,000 ML IV SCH (10:55)
[2022-10-26] MEDS: PANTOPRAZOLE 40 MG/10 ML VIAL INJ IV SCH ×2 (10:55→21:36)
[2022-10-26] MEDS: VANCOMYCIN HCL 125MG/5ML ORAL SOL PO SCH ×2 (12:00→17:59)
[2022-10-26 13:00] VITALS: BP 98/44
[2022-10-26 17:00] VITALS: BP 97/49
[2022-10-26 22:00] VITALS: BP 117/64
[2022-10-27] MEDS: VANCOMYCIN HCL 125MG/5ML ORAL SOL PO SCH ×3 (00:29→12:03)
[2022-10-27] MEDS: SODIUM CHLORIDE 0.9% 1,000 ML IV SCH (00:30)
[2022-10-27 05:00] VITALS: BP 106/48
[2022-10-27] MEDS: metroNIDAZOLE 500MG/100ML 100 ML IV SCH (05:44)
[2022-10-27] MEDS: SUCRALFATE 1 GM/10 ML ORAL SUSP PO SCH ×2 (06:34→12:02)
[2022-10-27] MEDS: LEVOTHYROXINE SODIUM 100 MCG TAB PO SCH (06:34)
[2022-10-27] MEDS: PANTOPRAZOLE 40 MG/10 ML VIAL INJ IV SCH (08:21)
[2022-10-27] MEDS: HYDROCORTISONE 10 MG TAB PO SCH (08:32)
[2022-10-27] MEDS ORDERED: SUCR1TAB22 PO (08:38)
[2022-10-27] MEDS ORDERED: PANT40T PO (08:38)
[2022-10-27] MEDS ORDERED: METR500T PO (08:38)
[2022-10-27] MEDS ORDERED: VANC250PO PO (08:40)
[2022-10-27 08:51] VITALS: BP 118/48
[2022-10-27 10:53] VITALS: BP 118/48
== END 2022-10-27 12:50 | disposition home or self-care (01) | DRG 241 ==
LOC: ER 01:23 → EDUNIT# 01:23 → EDBD 01:23 → TELE 10:43 → TELE-CENTR 17:55
PROVIDERS: ADMIT Nurse Practitioner Family; ATTEND Family Medicine
PROC: 30233N1 Transfusion of Nonautologous Red Blood Cells into Peripheral Vein, Percutaneous Approach (ICD-10-PCS; 2022-10-23)
PROC: 0DB68ZX Excision of Stomach, Via Natural or Artificial Opening Endoscopic, Diagnostic (ICD-10-PCS; principal; 2022-10-26 09:35)
DX: K29.71 Gastritis, unspecified, with bleeding (principal); I50.43 Acute on chronic combined systolic (congestive) and diastolic (congestive) heart failure; N17.9 Acute kidney failure, unspecified; A04.72 Enterocolitis due to Clostridium difficile, not specified as recurrent; D62 Acute posthemorrhagic anemia; E44.1 Mild protein-calorie malnutrition; J44.1 Chronic obstructive pulmonary disease with (acute) exacerbation; I11.0 Hypertensive heart disease with heart failure; I95.9 Hypotension, unspecified; E86.0 Dehydration; R55 Syncope and collapse; E03.9 Hypothyroidism, unspecified; Z20.822 Contact with and (suspected) exposure to COVID-19; K25.9 Gastric ulcer, unspecified as acute or chronic, without hemorrhage or perforation; K29.80 Duodenitis without bleeding; W18.39XA Other fall on same level, initial encounter; M25.512 Pain in left shoulder; K80.20 Calculus of gallbladder without cholecystitis without obstruction; Z68.38 Body mass index [BMI] 38.0-38.9, adult; Z82.3 Family history of stroke; Z82.49 Family history of ischemic heart disease and other diseases of the circulatory system; Z83.3 Family history of diabetes mellitus; Z95.0 Presence of cardiac pacemaker; Y93.89 Activity, other specified; Y92.89 Other specified places as the place of occurrence of the external cause; Y99.8 Other external cause status
CPT/HCPCS: 36415; 43239; 70450; 73030; 74176; 80053; 81001; 82270; 82570; 82962; 84300; 84484; 85025; 85610; 86850; 86900; 86901; 86920; 87040; 87045; 87177; 87426; 87427; 87493; 93005; 95819; 96360; 96361; 99291; C9113; G0378; J2250; J3490

== ENCOUNTER 2022-12-02 00:48 | Inpatient (IN) | payer MEDICAID ==
[~2022-12-02] VITALS: Ht 170.2 cm; Wt 114.6 kg
[~2022-12-02 00:48] MED LIST changes: -CARV3.1240 PO; +HYDR0.5C EX; +METR500T PO; +PANT40T PO; +POTA10TA51 PO; +SUCR1TAB22 PO; +VANC250PO PO
[2022-12-02 01:59] LABS: Basophils # (auto) 0.1 10 ^3/uL (0-0.2); Basophils % (auto) 0.6 % (0.0-2.0); Eosinophils # (auto) 0.2 10 ^3/uL (0-0.8); Eosinophils % (auto) 1.9 % (0.0-7.0); Hematocrit 39.6 % (41.0-53.0); Hemoglobin 13.1 g/dL (13.5-17.5); Lymphocytes # (auto) 1.9 10 ^3/uL (0.4-5.4); Lymphocytes % (auto) 19.1 % (10.0-50.0); Mean Corpuscular Hemoglobin 31.1 pg (28.0-32.0); Mean Corpuscular Hgb Conc. 33.1 g/dL (32.0-36.0); Monocytes # (auto) 0.9 10 ^3/uL (0-1.3); Monocytes % (auto) 9.2 % (0.0-12.0); Neutrophils # (auto) 6.9 10 ^3/uL (1.6-8.6); Neutrophils % (auto) 69.2 % (37.0-80.0); Nucleated Red Blood Cells % 0.1 %; Red Blood Cells 4.21 10^6/uL (4.5-5.90); Red Cell Distribution Width 14.4 % (11.8-14.3)
[2022-12-02 02:05] LABS: Albumin 3.3 g/dL (3.4-5.0); BUN/Creatinine Ratio 10.5; Calcium 9.3 mg/dL (8.5-10.1); Potassium 4.4 mmol/L (3.5-5.1)
[2022-12-02 02:08] LABS: Bilirubin, Total 1.4 mg/dL (0.2-1.0); Total Protein 8.6 g/dL (6.4-8.2)
[2022-12-02] MEDS ORDERED: HYDROmorphone HCL 2 MG/ML VL/or syr IV ONE (04:00)
[2022-12-02] MEDS ORDERED: ONDANSETRON HCL 4 MG/2 ML VIAL IV PRN (06:00)
[2022-12-02] MEDS ORDERED: NITROGLYCERIN 0.4 MG SL TAB SL PRN (06:00)
[2022-12-02] MEDS ORDERED: FUROSEMIDE 40 MG TAB PO SCH (06:00)
[2022-12-02] MEDS ORDERED: MORPHINE SULFATE INJ 2 MG/ml SYRG IV PRN (06:00)
[2022-12-02] MEDS: LEVOTHYROXINE SODIUM 100 MCG TAB PO SCH (06:30)
[2022-12-02] MEDS: ACETAMINOPHEN 325 MG TAB PO PRN (09:06)
[2022-12-02] MEDS ORDERED: ISOSORBIDE DINITRATE 10 MG TAB PO SCH (10:00)
[2022-12-02] MEDS ORDERED: SACUBITRIL-VALSARTAN 24mg/26mg TAB PO SCH (10:00)
[2022-12-02] MEDS ORDERED: hydrALAZINE HCL 25 MG TAB PO SCH (10:00)
[2022-12-02] MEDS ORDERED: SODIUM CHLORIDE 0.9% 1,000 ML IV SCH (11:15)
[2022-12-02] MEDS: ENOXAPARIN SOD 40 MG/0.4 ML SYRINGE SC SCH (11:25)
[2022-12-02] MEDS: COLCHICINE 0.6 MG CAP PO SCH ×2 (11:41→22:23)
[2022-12-02] MEDS: ALLOPURINOL 100 MG TAB PO SCH (11:41)
[2022-12-02] MEDS ORDERED: SODIUM CHLORIDE 0.9% 500 ML IV ONE ×2 (14:15→15:00)
[2022-12-02] MEDS ORDERED: FLUDROCORTISONE ACETATE 0.1 MG TAB PO SCH (14:15)
[2022-12-02] MEDS: SODIUM CHLORIDE 0.9% 1,000 ML IV SCH ×2 (14:59→23:00)
[2022-12-02] MEDS: PHENYLEPHRINE IV 250 ML IV SCH ×2 (16:09→23:20)
[2022-12-02] MEDS: TEMAZEPAM 15 MG CAP PO PRN (20:25)
[2022-12-02] MEDS: HYDROcodone-ACET 5/325MG TAB PO PRN (20:26)
[2022-12-03] MEDS: SODIUM CHLORIDE 0.9% 1,000 ML IV SCH ×3 (07:00→23:14)
[2022-12-03] MEDS: LEVOTHYROXINE SODIUM 100 MCG TAB PO SCH (07:17)
[2022-12-03] MEDS: PHENYLEPHRINE IV 250 ML IV SCH ×3 (07:40→21:48)
[2022-12-03] MEDS: ACETAMINOPHEN 325 MG TAB PO PRN (08:35)
[2022-12-03 09:16] LABS: Basophils # (auto) 0 10 ^3/uL (0-0.2); Basophils % (auto) 0.4 % (0.0-2.0); Eosinophils # (auto) 0.2 10 ^3/uL (0-0.8); Eosinophils % (auto) 1.5 % (0.0-7.0); Hematocrit 36.5 % (41.0-53.0); Hemoglobin 11.9 g/dL (13.5-17.5); Lymphocytes # (auto) 1.8 10 ^3/uL (0.4-5.4); Lymphocytes % (auto) 16.1 % (10.0-50.0); Mean Corpuscular Hemoglobin 30.6 pg (28.0-32.0); Mean Corpuscular Hgb Conc. 32.5 g/dL (32.0-36.0); Mean Corpuscular Volume 94.1 fL (80.0-100.0); Monocytes # (auto) 1.4 10 ^3/uL (0-1.3); Red Blood Cells 3.88 10^6/uL (4.5-5.90); Red Cell Distribution Width 14.7 % (11.8-14.3); White Blood Cell 11.4 10^3/uL (4.4-10.8)
[2022-12-03] MEDS: COLCHICINE 0.6 MG CAP PO SCH ×2 (09:33→22:03)
[2022-12-03] MEDS: FLUDROCORTISONE ACETATE 0.1 MG TAB PO SCH (09:34)
[2022-12-03] MEDS: ALLOPURINOL 100 MG TAB PO SCH (09:34)
[2022-12-03] MEDS: ENOXAPARIN SOD 40 MG/0.4 ML SYRINGE SC SCH (09:34)
[2022-12-03 09:35] LABS: BUN/Creatinine Ratio 14.5; Calcium 8.1 mg/dL (8.5-10.1)
[2022-12-03] MEDS ORDERED: HYDROCORTISONE 10 MG TAB PO SCH (10:00)
[2022-12-03] MEDS ORDERED: VANCOMYCIN PER PHARMACY 0 MG IV SCH (10:15)
[2022-12-03] MEDS: HYDROcodone-ACET 5/325MG TAB PO PRN ×2 (10:37→20:57)
[2022-12-03 12:36] LABS: INR 1.24 (0.9-1.15)
[2022-12-03] MEDS: VANCOMYCIN 1GM/250ML 250 ML IV SCH (12:41)
[2022-12-03] MEDS: CEFEPIME 2 GM in SODIUM CHL 0.9% 50 ML IV SCH ×2 (14:50→22:03)
[2022-12-03] MEDS ORDERED: LIDOCAINE 1% (LOCAL ANESTH.) PF 5ml SDV ID ONE (19:00)
[2022-12-03] MEDS: SODIUM CHLOR 0.9% PF (SALINE LOCK) 10ML VIAL/SYR IV SCH (22:03)
[2022-12-04] VITALS (62 sets, daily range): BP systolic 79–132; BP diastolic 30–72
[2022-12-04] MEDS: PHENYLEPHRINE IV 250 ML IV SCH ×3 (02:45→07:33)
[2022-12-04] MEDS: CEFEPIME 2 GM in SODIUM CHL 0.9% 50 ML IV SCH ×3 (06:20→22:08)
[2022-12-04] MEDS: LEVOTHYROXINE SODIUM 100 MCG TAB PO SCH (06:23)
[2022-12-04] MEDS: SODIUM CHLORIDE 0.9% 1,000 ML IV SCH ×3 (06:23→21:33)
[2022-12-04 06:38] LABS: Potassium 4.1 mmol/L (3.5-5.1)
[2022-12-04 06:44] LABS: Albumin 2.6 g/dL (3.4-5.0); BUN/Creatinine Ratio 18.3; Bilirubin, Total 0.9 mg/dL (0.2-1.0); Calcium 7.6 mg/dL (8.5-10.1)
[2022-12-04 07:42] LABS: Basophils # (auto) 0 10 ^3/uL (0-0.2); Basophils % (auto) 0.2 % (0.0-2.0); Eosinophils # (auto) 0.4 10 ^3/uL (0-0.8); Eosinophils % (auto) 3.7 % (0.0-7.0); Lymphocytes # (auto) 1.5 10 ^3/uL (0.4-5.4); Lymphocytes % (auto) 13.9 % (10.0-50.0); Mean Corpuscular Hemoglobin 31.6 pg (28.0-32.0); Mean Corpuscular Hgb Conc. 33.4 g/dL (32.0-36.0); Mean Corpuscular Volume 94.7 fL (80.0-100.0); Monocytes # (auto) 0.9 10 ^3/uL (0-1.3); Monocytes % (auto) 8.6 % (0.0-12.0); Neutrophils % (auto) 73.6 % (37.0-80.0); Nucleated Red Blood Cells % 0.1 %; Red Cell Distribution Width 14.5 % (11.8-14.3); White Blood Cell 10.9 10^3/uL (4.4-10.8)
[2022-12-04] MEDS: VANCOMYCIN 1GM/250ML 250 ML IV SCH ×2 (09:53→18:33)
[2022-12-04] MEDS: COLCHICINE 0.6 MG CAP PO SCH ×2 (09:54→22:08)
[2022-12-04] MEDS: FLUDROCORTISONE ACETATE 0.1 MG TAB PO SCH (09:54)
[2022-12-04] MEDS: ENOXAPARIN SOD 40 MG/0.4 ML SYRINGE SC SCH (09:54)
[2022-12-04] MEDS: ALLOPURINOL 100 MG TAB PO SCH (09:54)
[2022-12-04] MEDS: VASOPRESSIN 20 UNITS in SODIUM CHL 0.9% 99 ML IV SCH ×3 (10:00→23:04)
[2022-12-04] MEDS: SODIUM CHLOR 0.9% PF (SALINE LOCK) 10ML VIAL/SYR IV SCH ×2 (13:44→22:09)
[2022-12-04] MEDS: PHENYLEPHRINE INJ 80 MG in SODIUM CHL 0.9% 242 ML IV SCH (13:44)
[2022-12-04] MEDS: PANTOPRAZOLE 40 MG TAB PO SCH (13:45)
[2022-12-04] MEDS: ACETAMINOPHEN 325 MG TAB PO PRN (14:19)
[2022-12-04] MEDS: HYDROcodone-ACET 5/325MG TAB PO PRN (20:36)
[2022-12-04] MEDS: TEMAZEPAM 15 MG CAP PO PRN (22:08)
[2022-12-05] VITALS (95 sets, daily range): BP systolic 79–150; BP diastolic 36–86
[2022-12-05] MEDS: PHENYLEPHRINE INJ 80 MG in SODIUM CHL 0.9% 242 ML IV SCH ×2 (01:12→09:31)
[2022-12-05] MEDS ORDERED: CARV3.1240 PO (01:48)
[2022-12-05] MEDS ORDERED: OMEP20TA PO (01:48)
[2022-12-05] MEDS: VANCOMYCIN 1GM/250ML 250 ML IV SCH (02:08)
[2022-12-05 04:37] LABS: Basophils # (auto) 0 10 ^3/uL (0-0.2); Basophils % (auto) 0.3 % (0.0-2.0); Eosinophils # (auto) 0.5 10 ^3/uL (0-0.8); Eosinophils % (auto) 6.1 % (0.0-7.0); Hematocrit 34.7 % (41.0-53.0); Hemoglobin 11.6 g/dL (13.5-17.5); Lymphocytes # (auto) 0.9 10 ^3/uL (0.4-5.4); Lymphocytes % (auto) 11.2 % (10.0-50.0); Mean Corpuscular Hgb Conc. 33.4 g/dL (32.0-36.0); Monocytes # (auto) 0.8 10 ^3/uL (0-1.3); Monocytes % (auto) 10.1 % (0.0-12.0); Neutrophils % (auto) 72.3 % (37.0-80.0); Nucleated Red Blood Cells % 0.1 %; Red Blood Cells 3.61 10^6/uL (4.5-5.90); Red Cell Distribution Width 14.6 % (11.8-14.3); White Blood Cell 8.2 10^3/uL (4.4-10.8)
[2022-12-05 04:49] LABS: Calcium 8.3 mg/dL (8.5-10.1); Potassium 3.9 mmol/L (3.5-5.1)
[2022-12-05 04:52] LABS: BUN/Creatinine Ratio 15.8
[2022-12-05] MEDS: CEFEPIME 2 GM in SODIUM CHL 0.9% 50 ML IV SCH (05:47)
[2022-12-05] MEDS: LEVOTHYROXINE SODIUM 100 MCG TAB PO SCH (05:54)
[2022-12-05] MEDS: SODIUM CHLOR 0.9% PF (SALINE LOCK) 10ML VIAL/SYR IV SCH ×2 (11:47→21:01)
[2022-12-05] MEDS: PANTOPRAZOLE 40 MG TAB PO SCH (11:47)
[2022-12-05] MEDS: COLCHICINE 0.6 MG CAP PO SCH ×2 (11:47→21:01)
[2022-12-05] MEDS: ALLOPURINOL 100 MG TAB PO SCH (11:47)
[2022-12-05] MEDS: ENOXAPARIN SOD 40 MG/0.4 ML SYRINGE SC SCH (11:47)
[2022-12-05] MEDS: FLUDROCORTISONE ACETATE 0.1 MG TAB PO SCH (11:47)
[2022-12-05] MEDS: HYDROcodone-ACET 5/325MG TAB PO PRN (12:01)
[2022-12-05] MEDS: SODIUM CHLORIDE 0.9% 1,000 ML IV SCH ×2 (12:40→21:12)
[2022-12-05] MEDS ORDERED: VANCOMYCIN 1GM/250ML 250 ML IV SCH (14:00)
[2022-12-05] MEDS: VANCOMYCIN HCL 125MG/5ML ORAL SOL PO SCH (19:04)
[2022-12-05] MEDS: VASOPRESSIN 20 UNITS in SODIUM CHL 0.9% 99 ML IV SCH (19:21)
[2022-12-05] MEDS: metroNIDAZOLE 500MG/100ML 100 ML IV SCH (21:01)
[2022-12-06] VITALS (94 sets, daily range): BP systolic 84–150; BP diastolic 24–126
[2022-12-06] MEDS: VANCOMYCIN HCL 125MG/5ML ORAL SOL PO SCH ×4 (00:09→19:48)
[2022-12-06] MEDS: VASOPRESSIN 20 UNITS in SODIUM CHL 0.9% 99 ML IV SCH ×2 (01:36→17:35)
[2022-12-06] MEDS: metroNIDAZOLE 500MG/100ML 100 ML IV SCH ×3 (05:02→22:54)
[2022-12-06] MEDS: HYDROcodone-ACET 5/325MG TAB PO PRN ×2 (05:03→14:08)
[2022-12-06] MEDS: PHENYLEPHRINE INJ 80 MG in SODIUM CHL 0.9% 242 ML IV SCH ×2 (05:03→07:30)
[2022-12-06] MEDS: LEVOTHYROXINE SODIUM 100 MCG TAB PO SCH (06:54)
[2022-12-06] MEDS: SODIUM CHLOR 0.9% PF (SALINE LOCK) 10ML VIAL/SYR IV SCH ×2 (09:31→22:00)
[2022-12-06] MEDS: ENOXAPARIN SOD 40 MG/0.4 ML SYRINGE SC SCH (09:41)
[2022-12-06] MEDS: ALLOPURINOL 100 MG TAB PO SCH (09:41)
[2022-12-06] MEDS: FLUDROCORTISONE ACETATE 0.1 MG TAB PO SCH (09:42)
[2022-12-06] MEDS: COLCHICINE 0.6 MG CAP PO SCH ×2 (09:42→22:54)
[2022-12-06] MEDS: PANTOPRAZOLE 40 MG TAB PO SCH (09:42)
[2022-12-06] MEDS: SODIUM CHLORIDE 0.9% 1,000 ML IV SCH (13:05)
[2022-12-07] VITALS (45 sets, daily range): BP systolic 85–136; BP diastolic 46–73
[2022-12-07] MEDS: VANCOMYCIN HCL 125MG/5ML ORAL SOL PO SCH ×5 (00:12→23:45)
[2022-12-07] MEDS: SODIUM CHLORIDE 0.9% 1,000 ML IV SCH ×2 (04:40→06:00)
[2022-12-07] MEDS: VASOPRESSIN 20 UNITS in SODIUM CHL 0.9% 99 ML IV SCH (04:42)
[2022-12-07] MEDS: LEVOTHYROXINE SODIUM 100 MCG TAB PO SCH (06:00)
[2022-12-07] MEDS: metroNIDAZOLE 500MG/100ML 100 ML IV SCH ×3 (06:00→21:09)
[2022-12-07 06:49] LABS: Basophils # (auto) 0 10 ^3/uL (0-0.2); Basophils % (auto) 0.5 % (0.0-2.0); Eosinophils # (auto) 0.4 10 ^3/uL (0-0.8); Eosinophils % (auto) 11.8 % (0.0-7.0); Hematocrit 29.7 % (41.0-53.0); Lymphocytes # (auto) 0.6 10 ^3/uL (0.4-5.4); Lymphocytes % (auto) 19.3 % (10.0-50.0); Mean Corpuscular Hemoglobin 31.4 pg (28.0-32.0); Mean Corpuscular Hgb Conc. 33.9 g/dL (32.0-36.0); Mean Corpuscular Volume 92.8 fL (80.0-100.0); Monocytes # (auto) 0.4 10 ^3/uL (0-1.3); Monocytes % (auto) 12.1 % (0.0-12.0); Neutrophils # (auto) 1.7 10 ^3/uL (1.6-8.6); Neutrophils % (auto) 56.3 % (37.0-80.0); Nucleated Red Blood Cells % 0.1 %; Red Cell Distribution Width 14.5 % (11.8-14.3)
[2022-12-07 06:57] LABS: BUN/Creatinine Ratio 14.9; Calcium 7.9 mg/dL (8.5-10.1); Potassium 3.1 mmol/L (3.5-5.1)
[2022-12-07] MEDS: PHENYLEPHRINE INJ 80 MG in SODIUM CHL 0.9% 242 ML IV SCH (07:30)
[2022-12-07] MEDS: SODIUM CHLOR 0.9% PF (SALINE LOCK) 10ML VIAL/SYR IV SCH ×2 (10:24→21:10)
[2022-12-07] MEDS: FLUDROCORTISONE ACETATE 0.1 MG TAB PO SCH (10:24)
[2022-12-07] MEDS: POTASSIUM CHL 20MEQ/100ML 100 ML IV SCH ×2 (10:24→13:16)
[2022-12-07] MEDS: COLCHICINE 0.6 MG CAP PO SCH ×2 (10:24→21:11)
[2022-12-07] MEDS: ALLOPURINOL 100 MG TAB PO SCH (10:24)
[2022-12-07] MEDS: PANTOPRAZOLE 40 MG TAB PO SCH (10:24)
[2022-12-07] MEDS: ENOXAPARIN SOD 40 MG/0.4 ML SYRINGE SC SCH (12:05)
[2022-12-08] MEDS: HYDROcodone-ACET 5/325MG TAB PO PRN (04:25)
[2022-12-08 05:00] VITALS: BP 132/75
[2022-12-08] MEDS: SODIUM CHLORIDE 0.9% 1,000 ML IV SCH (05:01)
[2022-12-08] MEDS: metroNIDAZOLE 500MG/100ML 100 ML IV SCH ×3 (05:26→22:51)
[2022-12-08] MEDS: VANCOMYCIN HCL 125MG/5ML ORAL SOL PO SCH ×4 (05:32→23:03)
[2022-12-08] MEDS: LEVOTHYROXINE SODIUM 100 MCG TAB PO SCH (06:12)
[2022-12-08 07:15] LABS: Basophils # (auto) 0 10 ^3/uL (0-0.2); Basophils % (auto) 0.8 % (0.0-2.0); Eosinophils # (auto) 0.3 10 ^3/uL (0-0.8); Eosinophils % (auto) 9.4 % (0.0-7.0); Hematocrit 29.7 % (41.0-53.0); Hemoglobin 10.3 g/dL (13.5-17.5); Lymphocytes # (auto) 0.9 10 ^3/uL (0.4-5.4); Lymphocytes % (auto) 28.9 % (10.0-50.0); Mean Corpuscular Hemoglobin 31.9 pg (28.0-32.0); Mean Corpuscular Hgb Conc. 34.6 g/dL (32.0-36.0); Monocytes # (auto) 0.4 10 ^3/uL (0-1.3); Monocytes % (auto) 12.1 % (0.0-12.0); Neutrophils # (auto) 1.5 10 ^3/uL (1.6-8.6); Neutrophils % (auto) 48.8 % (37.0-80.0); Nucleated Red Blood Cells % 0.1 %; Red Blood Cells 3.23 10^6/uL (4.5-5.90); Red Cell Distribution Width 14.2 % (11.8-14.3); White Blood Cell 3.1 10^3/uL (4.4-10.8)
[2022-12-08 08:04] LABS: Anion Gap 8 (5-15); BUN/Creatinine Ratio 12.7; Blood Urea Nitrogen 9 mg/dL (7-18); Calcium 7.3 mg/dL (8.5-10.1); Carbon Dioxide 20 mmol/L (21-32); Chloride 118 mmol/L (98-107); GFR African American 149 mL/min; GFR Non-African American 123 mL/min; Glucose 83 mg/dL (74-106); Potassium 3.3 mmol/L (3.5-5.1); Sodium 146 mmol/L (136-145); Uric Acid 5.7 mg/dL (3.5-7.2)
[2022-12-08 09:00] VITALS: BP 129/74
[2022-12-08] MEDS: COLCHICINE 0.6 MG CAP PO SCH (10:18)
[2022-12-08] MEDS: ALLOPURINOL 100 MG TAB PO SCH (10:19)
[2022-12-08] MEDS: PANTOPRAZOLE 40 MG TAB PO SCH (10:19)
[2022-12-08] MEDS: FLUDROCORTISONE ACETATE 0.1 MG TAB PO SCH (10:19)
[2022-12-08] MEDS: ENOXAPARIN SOD 40 MG/0.4 ML SYRINGE SC SCH (10:20)
[2022-12-08] MEDS: SOD CHL 0.9%/ KCL 20MEQ 1,000 ML IV SCH (12:18)
[2022-12-08 13:00] VITALS: BP 137/74
[2022-12-08 17:24] VITALS: BP 109/79
[2022-12-08 22:00] VITALS: BP 133/80
[2022-12-09 05:00] VITALS: BP 133/89
[2022-12-09] MEDS: metroNIDAZOLE 500MG/100ML 100 ML IV SCH ×3 (05:26→21:29)
[2022-12-09] MEDS: VANCOMYCIN HCL 125MG/5ML ORAL SOL PO SCH ×4 (05:51→23:35)
[2022-12-09] MEDS: LEVOTHYROXINE SODIUM 100 MCG TAB PO SCH (06:08)
[2022-12-09] MEDS: SOD CHL 0.9%/ KCL 20MEQ 1,000 ML IV SCH (06:17)
[2022-12-09 06:32] LABS: Basophils # (auto) 0 10 ^3/uL (0-0.2); Basophils % (auto) 0.9 % (0.0-2.0); Eosinophils # (auto) 0.3 10 ^3/uL (0-0.8); Eosinophils % (auto) 8.6 % (0.0-7.0); Hematocrit 31.3 % (41.0-53.0); Hemoglobin 10.5 g/dL (13.5-17.5); Lymphocytes # (auto) 1.1 10 ^3/uL (0.4-5.4); Mean Corpuscular Hgb Conc. 33.5 g/dL (32.0-36.0); Mean Corpuscular Volume 92.6 fL (80.0-100.0); Monocytes # (auto) 0.4 10 ^3/uL (0-1.3); Monocytes % (auto) 12.3 % (0.0-12.0); Neutrophils # (auto) 1.5 10 ^3/uL (1.6-8.6); Neutrophils % (auto) 44.2 % (37.0-80.0); Nucleated Red Blood Cells % 0.1 %; Red Blood Cells 3.38 10^6/uL (4.5-5.90); Red Cell Distribution Width 14.7 % (11.8-14.3); White Blood Cell 3.3 10^3/uL (4.4-10.8)
[2022-12-09 06:43] LABS: BUN/Creatinine Ratio 14.5; Calcium 7.7 mg/dL (8.5-10.1); Potassium 3.3 mmol/L (3.5-5.1)
[2022-12-09 09:00] VITALS: BP 145/91
[2022-12-09] MEDS: ALLOPURINOL 100 MG TAB PO SCH (09:45)
[2022-12-09] MEDS: FLUDROCORTISONE ACETATE 0.1 MG TAB PO SCH (09:45)
[2022-12-09] MEDS: ENOXAPARIN SOD 40 MG/0.4 ML SYRINGE SC SCH (09:45)
[2022-12-09] MEDS: PANTOPRAZOLE 40 MG TAB PO SCH (09:45)
[2022-12-09 13:00] VITALS: BP 126/75
[2022-12-09] MEDS: POTASSIUM CHLORIDE 40 MEQ in SOD CHL 0.45% 1,000 ML IV SCH (14:42)
[2022-12-09 17:00] VITALS: BP 144/70
[2022-12-09] MEDS: FLORASTOR (S. BOULARDII) 250 MG CAP PO SCH (21:29)
[2022-12-09 22:00] VITALS: BP 143/76
[2022-12-09] MEDS ORDERED: FLORASTOR (S. BOULARDII) 250 MG CAP PO SCH (22:00)
[2022-12-10] MEDS: POTASSIUM CHLORIDE 40 MEQ in SOD CHL 0.45% 1,000 ML IV SCH ×3 (00:50→23:36)
[2022-12-10 05:00] VITALS: BP 141/80
[2022-12-10] MEDS: VANCOMYCIN HCL 125MG/5ML ORAL SOL PO SCH ×4 (05:19→23:40)
[2022-12-10] MEDS: metroNIDAZOLE 500MG/100ML 100 ML IV SCH ×3 (05:19→21:00)
[2022-12-10] MEDS: ACETAMINOPHEN 325 MG TAB PO PRN ×2 (06:21→14:38)
[2022-12-10] MEDS: LEVOTHYROXINE SODIUM 100 MCG TAB PO SCH (06:21)
[2022-12-10 06:34] LABS: Calcium 7.6 mg/dL (8.5-10.1); Potassium 3.3 mmol/L (3.5-5.1)
[2022-12-10 06:38] LABS: BUN/Creatinine Ratio 11.3; Magnesium 1.7 mg/dL (1.6-2.6)
[2022-12-10 09:00] VITALS: BP 144/86
[2022-12-10] MEDS: FLORASTOR (S. BOULARDII) 250 MG CAP PO SCH ×2 (09:54→21:00)
[2022-12-10] MEDS: ALLOPURINOL 100 MG TAB PO SCH (09:55)
[2022-12-10] MEDS: PANTOPRAZOLE 40 MG TAB PO SCH (09:55)
[2022-12-10] MEDS: FLUDROCORTISONE ACETATE 0.1 MG TAB PO SCH (09:55)
[2022-12-10] MEDS: ENOXAPARIN SOD 40 MG/0.4 ML SYRINGE SC SCH (09:56)
[2022-12-10 13:00] VITALS: BP 136/79
[2022-12-10] MEDS ORDERED: POTASSIUM EFFERVESENT TAB 25 MEQ PO ONE (13:45)
[2022-12-10 17:00] VITALS: BP 149/89
[2022-12-10 22:00] VITALS: BP 139/87
[2022-12-11 05:00] VITALS: BP 142/82
[2022-12-11] MEDS: metroNIDAZOLE 500MG/100ML 100 ML IV SCH ×3 (05:43→21:54)
[2022-12-11] MEDS: LEVOTHYROXINE SODIUM 100 MCG TAB PO SCH (05:44)
[2022-12-11] MEDS: VANCOMYCIN HCL 125MG/5ML ORAL SOL PO SCH ×3 (05:44→17:54)
[2022-12-11 06:24] LABS: Basophils # (auto) 0 10 ^3/uL (0-0.2); Basophils % (auto) 0.7 % (0.0-2.0); Eosinophils # (auto) 0.4 10 ^3/uL (0-0.8); Eosinophils % (auto) 8.4 % (0.0-7.0); Hematocrit 31.2 % (41.0-53.0); Hemoglobin 10.7 g/dL (13.5-17.5); Lymphocytes # (auto) 1.3 10 ^3/uL (0.4-5.4); Lymphocytes % (auto) 27.7 % (10.0-50.0); Mean Corpuscular Hemoglobin 31.6 pg (28.0-32.0); Mean Corpuscular Hgb Conc. 34.4 g/dL (32.0-36.0); Mean Corpuscular Volume 91.7 fL (80.0-100.0); Monocytes # (auto) 0.5 10 ^3/uL (0-1.3); Monocytes % (auto) 10.3 % (0.0-12.0); Neutrophils # (auto) 2.4 10 ^3/uL (1.6-8.6); Neutrophils % (auto) 52.9 % (37.0-80.0); Nucleated Red Blood Cells % 0.3 %; Red Cell Distribution Width 15.1 % (11.8-14.3); White Blood Cell 4.6 10^3/uL (4.4-10.8)
[2022-12-11 09:00] VITALS: BP 151/90
[2022-12-11] MEDS: PANTOPRAZOLE 40 MG TAB PO SCH (09:16)
[2022-12-11] MEDS: FLORASTOR (S. BOULARDII) 250 MG CAP PO SCH ×2 (09:16→21:52)
[2022-12-11] MEDS: ALLOPURINOL 100 MG TAB PO SCH (09:16)
[2022-12-11] MEDS: ENOXAPARIN SOD 40 MG/0.4 ML SYRINGE SC SCH (09:17)
[2022-12-11] MEDS: FLUDROCORTISONE ACETATE 0.1 MG TAB PO SCH (09:17)
[2022-12-11] MEDS ORDERED: FUROSEMIDE 40 MG TAB PO ONE (10:30)
[2022-12-11 10:42] LABS: BUN/Creatinine Ratio 9.1; Calcium 7.4 mg/dL (8.5-10.1); Potassium 3.5 mmol/L (3.5-5.1)
[2022-12-11 13:00] VITALS: BP_SYST 146; BP_SYST 151; BP_DIAS 90; BP_DIAS 92
[2022-12-11 17:00] VITALS: BP 135/63
[2022-12-11] MEDS: ACETAMINOPHEN 325 MG TAB PO PRN (21:52)
[2022-12-11 22:00] VITALS: BP 117/47
[2022-12-12] MEDS: VANCOMYCIN HCL 125MG/5ML ORAL SOL PO SCH ×4 (00:45→17:52)
[2022-12-12 05:00] VITALS: BP 120/90
[2022-12-12] MEDS: metroNIDAZOLE 500MG/100ML 100 ML IV SCH ×3 (05:46→22:01)
[2022-12-12] MEDS: LEVOTHYROXINE SODIUM 100 MCG TAB PO SCH (05:47)
[2022-12-12 08:28] VITALS: BP 98/64
[2022-12-12] MEDS: ENOXAPARIN SOD 40 MG/0.4 ML SYRINGE SC SCH (09:32)
[2022-12-12] MEDS: FLORASTOR (S. BOULARDII) 250 MG CAP PO SCH ×2 (09:32→22:00)
[2022-12-12] MEDS: PANTOPRAZOLE 40 MG TAB PO SCH (09:32)
[2022-12-12] MEDS: ALLOPURINOL 100 MG TAB PO SCH (09:32)
[2022-12-12] MEDS: HYDROCORTISONE 10 MG TAB PO SCH (09:33)
[2022-12-12] MEDS: ACETAMINOPHEN 325 MG TAB PO PRN (09:33)
[2022-12-12 13:00] VITALS: BP 122/74
[2022-12-12 14:15] LABS: Magnesium 1.5 mg/dL (1.6-2.6); Potassium 4.1 mmol/L (3.5-5.1)
[2022-12-12] MEDS ORDERED: MAGNESIUM SULFATE 1GM/100ML 100 ML IV ONE (14:30)
[2022-12-12 23:07] VITALS: BP 134/82
[2022-12-13] MEDS: VANCOMYCIN HCL 125MG/5ML ORAL SOL PO SCH ×4 (00:12→18:10)
[2022-12-13] MEDS: ACETAMINOPHEN 325 MG TAB PO PRN (04:27)
[2022-12-13 05:09] VITALS: BP 132/75
[2022-12-13] MEDS: LEVOTHYROXINE SODIUM 100 MCG TAB PO SCH (05:44)
[2022-12-13] MEDS: metroNIDAZOLE 500MG/100ML 100 ML IV SCH ×3 (05:45→22:08)
[2022-12-13 09:00] VITALS: BP 123/75
[2022-12-13] MEDS: HYDROCORTISONE 10 MG TAB PO SCH (09:57)
[2022-12-13] MEDS: PANTOPRAZOLE 40 MG TAB PO SCH (09:57)
[2022-12-13] MEDS: FLORASTOR (S. BOULARDII) 250 MG CAP PO SCH ×2 (09:57→22:08)
[2022-12-13] MEDS: ALLOPURINOL 100 MG TAB PO SCH (09:57)
[2022-12-13] MEDS: ENOXAPARIN SOD 40 MG/0.4 ML SYRINGE SC SCH (09:57)
[2022-12-13] MEDS: CHOLESTYRAMINE 4 GM POWDER GT SCH (11:54)
[2022-12-13 13:00] VITALS: BP 113/57
[2022-12-13 17:00] VITALS: BP 124/64
[2022-12-13 22:00] VITALS: BP 131/83
[2022-12-14] MEDS: VANCOMYCIN HCL 125MG/5ML ORAL SOL PO SCH ×4 (00:13→17:47)
[2022-12-14 05:00] VITALS: BP 144/77
[2022-12-14] MEDS: metroNIDAZOLE 500MG/100ML 100 ML IV SCH ×3 (06:03→21:57)
[2022-12-14] MEDS: LEVOTHYROXINE SODIUM 100 MCG TAB PO SCH (06:09)
[2022-12-14 08:00] VITALS: BP 137/73
[2022-12-14] MEDS: MAGNESIUM OXIDE 400 MG TAB PO SCH (09:53)
[2022-12-14] MEDS: PANTOPRAZOLE 40 MG TAB PO SCH (09:53)
[2022-12-14] MEDS: ALLOPURINOL 100 MG TAB PO SCH (09:54)
[2022-12-14] MEDS: SOTALOL HCL 80 MG TAB PO SCH ×2 (09:54→21:59)
[2022-12-14] MEDS: HYDROCORTISONE 10 MG TAB PO SCH (09:54)
[2022-12-14] MEDS: FLORASTOR (S. BOULARDII) 250 MG CAP PO SCH ×2 (09:54→21:59)
[2022-12-14] MEDS: ENOXAPARIN SOD 40 MG/0.4 ML SYRINGE SC SCH (09:54)
[2022-12-14 10:01] LABS: Potassium 2.8 mmol/L (3.5-5.1)
[2022-12-14] MEDS ORDERED: POTASSIUM EFFERVESENT TAB 25 MEQ PO ONE ×2 (10:45→13:30)
[2022-12-14] MEDS: CHOLESTYRAMINE 4 GM POWDER GT SCH (11:03)
[2022-12-14 12:00] VITALS: BP 117/84
[2022-12-14] MEDS: ACETAMINOPHEN 325 MG TAB PO PRN (14:21)
[2022-12-14 16:00] VITALS: BP 138/74
[2022-12-14 22:00] VITALS: BP 137/82
[2022-12-15 05:00] VITALS: BP 138/84
[2022-12-15] MEDS: metroNIDAZOLE 500MG/100ML 100 ML IV SCH (05:41)
[2022-12-15] MEDS: VANCOMYCIN HCL 125MG/5ML ORAL SOL PO SCH ×3 (05:42→12:05)
[2022-12-15] MEDS: LEVOTHYROXINE SODIUM 100 MCG TAB PO SCH (05:42)
[2022-12-15 06:14] LABS: Basophils # (auto) 0 10 ^3/uL (0-0.2); Basophils % (auto) 0.7 % (0.0-2.0); Eosinophils # (auto) 0.1 10 ^3/uL (0-0.8); Eosinophils % (auto) 1.8 % (0.0-7.0); Hematocrit 30.9 % (41.0-53.0); Hemoglobin 10.3 g/dL (13.5-17.5); Lymphocytes # (auto) 1.6 10 ^3/uL (0.4-5.4); Lymphocytes % (auto) 33.3 % (10.0-50.0); Mean Corpuscular Hemoglobin 30.7 pg (28.0-32.0); Mean Corpuscular Hgb Conc. 33.2 g/dL (32.0-36.0); Mean Corpuscular Volume 92.4 fL (80.0-100.0); Monocytes # (auto) 0.5 10 ^3/uL (0-1.3); Monocytes % (auto) 9.2 % (0.0-12.0); Neutrophils # (auto) 2.7 10 ^3/uL (1.6-8.6); Nucleated Red Blood Cells % 0.4 %; Red Blood Cells 3.35 10^6/uL (4.5-5.90); Red Cell Distribution Width 15.8 % (11.8-14.3); White Blood Cell 4.9 10^3/uL (4.4-10.8)
[2022-12-15 06:27] LABS: Calcium 7.8 mg/dL (8.5-10.1); Potassium 3.4 mmol/L (3.5-5.1)
[2022-12-15 06:29] LABS: BUN/Creatinine Ratio 9.1
[2022-12-15 08:00] VITALS: BP 136/91
[2022-12-15] MEDS ORDERED: POTASSIUM EFFERVESENT TAB 25 MEQ PO ONE (10:00)
[2022-12-15] MEDS: FLORASTOR (S. BOULARDII) 250 MG CAP PO SCH ×2 (10:11→22:29)
[2022-12-15] MEDS: HYDROCORTISONE 10 MG TAB PO SCH (10:11)
[2022-12-15] MEDS: SOTALOL HCL 80 MG TAB PO SCH ×2 (10:11→22:29)
[2022-12-15] MEDS: ENOXAPARIN SOD 40 MG/0.4 ML SYRINGE SC SCH (10:12)
[2022-12-15] MEDS: ALLOPURINOL 100 MG TAB PO SCH (10:12)
[2022-12-15] MEDS: PANTOPRAZOLE 40 MG TAB PO SCH (10:12)
[2022-12-15] MEDS: MAGNESIUM OXIDE 400 MG TAB PO SCH (10:12)
[2022-12-15] MEDS: CHOLESTYRAMINE 4 GM POWDER GT SCH (11:28)
[2022-12-15 12:00] VITALS: BP 133/92
[2022-12-15] MEDS ORDERED: DIFICID 200 MG PO ONE (13:15)
[2022-12-15] MEDS ORDERED: FIDAXOMICIN 200 MG PO ONE (13:15)
[2022-12-15 16:00] VITALS: BP 143/94
[2022-12-15 16:38] LABS: Urine Bacteria NONE SEEN /hpf (None Seen); Urine Blood Negative /uL (Negative); Urine Mucus FEW (None Seen); Urine Specific Gravity 1.014 (1.001-1.035); Urine WBC 4 /hpf (0 - 3)
[2022-12-15] MEDS ORDERED: PATIENTS OWN MEDICATION PO SCH (22:00)
[2022-12-15] MEDS: FIDAXOMICIN 200 MG PO SCH (22:30)
[2022-12-15 22:37] VITALS: BP 141/89
[2022-12-16 05:03] VITALS: BP 140/85
[2022-12-16 06:33] LABS: Potassium 3.5 mmol/L (3.5-5.1)
[2022-12-16] MEDS: LEVOTHYROXINE SODIUM 100 MCG TAB PO SCH (06:37)
[2022-12-16 06:39] LABS: Albumin 2.7 g/dL (3.4-5.0); BUN/Creatinine Ratio 9.5; Bilirubin, Total 0.6 mg/dL (0.2-1.0); Calcium 7.6 mg/dL (8.5-10.1); Total Protein 6.5 g/dL (6.4-8.2)
[2022-12-16 09:11] VITALS: BP 135/91
[2022-12-16 09:23] LABS: INR 1.32 (0.9-1.15); Partial Thromboplastin Time 27.9 sec (24.6-33.4)
[2022-12-16] MEDS: ALLOPURINOL 100 MG TAB PO SCH (10:00)
[2022-12-16] MEDS: ENOXAPARIN SOD 40 MG/0.4 ML SYRINGE SC SCH (10:00)
[2022-12-16] MEDS: PANTOPRAZOLE 40 MG TAB PO SCH (10:00)
[2022-12-16] MEDS: FLORASTOR (S. BOULARDII) 250 MG CAP PO SCH (10:00)
[2022-12-16] MEDS: HYDROCORTISONE 10 MG TAB PO SCH (10:00)
[2022-12-16] MEDS: SOTALOL HCL 80 MG TAB PO SCH (10:00)
[2022-12-16] MEDS: FIDAXOMICIN 200 MG PO SCH (10:00)
[2022-12-16] MEDS: MAGNESIUM OXIDE 400 MG TAB PO SCH (10:00)
[2022-12-16] MEDS: CHOLESTYRAMINE 4 GM POWDER GT SCH (11:00)
[2022-12-16 12:46] VITALS: BP 141/90
[2022-12-16] MEDS ORDERED: ALL100T PO (14:55)
[2022-12-16 16:46] VITALS: BP 152/104
== END 2022-12-16 18:11 | disposition home or self-care (01) | DRG 720 ==
LOC: ER 00:48 → EDBD 00:48 → TELE 06:05 → ICU WEST 12-04 06:10 → TELE-CENTR 12-07 16:32 → CENTRAL 12-09 14:09 → TELE-CENTR 12-12 02:40
PROVIDERS: ADMIT Nurse Practitioner; ATTEND Nurse Practitioner Acute Care
PROC: 02HV33Z Insertion of Infusion Device into Superior Vena Cava, Percutaneous Approach (ICD-10-PCS; principal; 2022-12-03)
PROC: 02HV33Z Insertion of Infusion Device into Superior Vena Cava, Percutaneous Approach (ICD-10-PCS; 2022-12-12)
DX: A41.9 Sepsis, unspecified organism (principal); N17.0 Acute kidney failure with tubular necrosis; R65.21 Severe sepsis with septic shock; A04.72 Enterocolitis due to Clostridium difficile, not specified as recurrent; E27.1 Primary adrenocortical insufficiency; J44.1 Chronic obstructive pulmonary disease with (acute) exacerbation; M10.9 Gout, unspecified; Z20.822 Contact with and (suspected) exposure to COVID-19; I11.0 Hypertensive heart disease with heart failure; E03.9 Hypothyroidism, unspecified; D64.9 Anemia, unspecified; Z83.3 Family history of diabetes mellitus; I50.43 Acute on chronic combined systolic (congestive) and diastolic (congestive) heart failure; I49.8 Other specified cardiac arrhythmias; E66.9 Obesity, unspecified; Z68.39 Body mass index [BMI] 39.0-39.9, adult; Z95.810 Presence of automatic (implantable) cardiac defibrillator; Z88.8 Allergy status to other drugs, medicaments and biological substances; Z82.49 Family history of ischemic heart disease and other diseases of the circulatory system; Z82.3 Family history of stroke
CPT/HCPCS: 36415; 36569; 71045; 71260; 73562; 73630; 73700; 74177; 76942; 80048; 80053; 80202; 81001; 82533; 83605; 83690; 83735; 83880; 84132; 84443; 84484; 84550; 85025; 85610; 85730; 87040; 87077; 87081; 87086; 87186; 87205; 87426; 87493; 87804; 89051; 89060; 93005; 93306; 93926; 93971; 96372; 96374; 97110; 97116; 97163; 97530; G0378; J3480; J3490

== ENCOUNTER 2022-12-17 19:42 | Inpatient (IN) | payer MEDICAID ==
[~2022-12-17] VITALS: Ht 170.2 cm; Wt 98.5 kg
[~2022-12-17 19:42] MED LIST changes: +ALL100T PO; +CARV3.1240 PO; +OMEP20TA PO
[2022-12-17 20:28] LABS: Basophils # (auto) 0.1 10 ^3/uL (0-0.2); Basophils % (auto) 0.7 % (0.0-2.0); Eosinophils # (auto) 0.2 10 ^3/uL (0-0.8); Eosinophils % (auto) 2.1 % (0.0-7.0); Lymphocytes # (auto) 2.5 10 ^3/uL (0.4-5.4); Lymphocytes % (auto) 23.7 % (10.0-50.0); Mean Corpuscular Hemoglobin 31.2 pg (28.0-32.0); Mean Corpuscular Hgb Conc. 33.3 g/dL (32.0-36.0); Mean Corpuscular Volume 93.7 fL (80.0-100.0); Monocytes # (auto) 0.7 10 ^3/uL (0-1.3); Monocytes % (auto) 6.5 % (0.0-12.0); Neutrophils # (auto) 7.1 10 ^3/uL (1.6-8.6); Nucleated Red Blood Cells % 0.1 %; Red Blood Cells 3.83 10^6/uL (4.5-5.90); Red Cell Distribution Width 16.4 % (11.8-14.3); White Blood Cell 10.6 10^3/uL (4.4-10.8)
[2022-12-17 20:46] LABS: Albumin 2.6 g/dL (3.4-5.0); Anion Gap 9 (5-15); Blood Urea Nitrogen 7 mg/dL (7-18); Calcium 7.6 mg/dL (8.5-10.1); Carbon Dioxide 25 mmol/L (21-32); Chloride 106 mmol/L (98-107); Glucose 121 mg/dL (74-106); Potassium 3.4 mmol/L (3.5-5.1); Sodium 140 mmol/L (136-145)
[2022-12-17 20:48] LABS: Alanine Aminotransferase 8 U/L (16-61); Aspartate Aminotransferase 19 U/L (15-37); BUN/Creatinine Ratio 8.1; GFR African American 120 mL/min; GFR Non-African American 99 mL/min
[2022-12-17 20:51] LABS: Alkaline Phosphatase 101 U/L (45-117); Bilirubin, Total 0.7 mg/dL (0.2-1.0); Total Protein 6.9 g/dL (6.4-8.2)
[2022-12-17] MEDS ORDERED: SODIUM CHLORIDE 0.9% 1,000 ML IV ONE (21:00)
[2022-12-17] MEDS ORDERED: ASPirin 81 mg TAB PO ONE (21:00)
[2022-12-17] MEDS ORDERED: AMIODARONE HCL 150 MG in D5W 5% 100 ML IV ONE (21:15)
[2022-12-17 21:39] LABS: INR 1.44 (0.9-1.15); Partial Thromboplastin Time 34.5 sec (24.6-33.4)
[2022-12-17] MEDS ORDERED: AMIODARONE HCL (50 MG/ ML) 3 ML VIAL IV ONE (21:39)
[2022-12-17] MEDS ORDERED: PANTOPRAZOLE 40 MG TAB PO ONE (22:00)
[2022-12-17] MEDS ORDERED: HYDROcodone-ACET 5/325MG TAB PO PRN (22:00)
[2022-12-17] MEDS ORDERED: NITROGLYCERIN 0.4 MG SL TAB SL PRN (22:00)
[2022-12-17] MEDS ORDERED: MORPHINE SULFATE INJ 2 MG/ml SYRG IV PRN ×2 (22:00)
[2022-12-17] MEDS ORDERED: POTASSIUM EFFERVESENT TAB 25 MEQ PO ONE (22:15)
[2022-12-17] MEDS ORDERED: AMIODARONE 450mg/250ml AE 250 ML IV SCH (22:15)
[2022-12-17] MEDS ORDERED: ALBUTEROL SULF 2.5 MG/0.5ML(0.5%) NEB SOLN NEB PRN (22:30)
[2022-12-17 22:35] VITALS: BP 133/87
[2022-12-18] MEDS ORDERED: VANCOMYCIN HCL 1000 MG VL PO SCH
[2022-12-18 01:48] LABS: Urine Bacteria NONE SEEN /hpf (None Seen); Urine Blood Negative /uL (Negative); Urine Specific Gravity 1.007 (1.001-1.035); Urine WBC 1 /hpf (0 - 3)
[2022-12-18] MEDS ORDERED: metroNIDAZOLE 500 MG TAB PO SCH (06:00)
[2022-12-18 06:58] LABS: Basophils # (auto) 0 10 ^3/uL (0-0.2); Basophils % (auto) 0.5 % (0.0-2.0); Eosinophils # (auto) 0.4 10 ^3/uL (0-0.8); Eosinophils % (auto) 4.6 % (0.0-7.0); Hematocrit 38.7 % (41.0-53.0); Hemoglobin 12.3 g/dL (13.5-17.5); Lymphocytes # (auto) 1.4 10 ^3/uL (0.4-5.4); Lymphocytes % (auto) 17.6 % (10.0-50.0); Mean Corpuscular Hemoglobin 30.9 pg (28.0-32.0); Mean Corpuscular Hgb Conc. 31.7 g/dL (32.0-36.0); Mean Corpuscular Volume 97.6 fL (80.0-100.0); Monocytes # (auto) 0.8 10 ^3/uL (0-1.3); Monocytes % (auto) 10.2 % (0.0-12.0); Neutrophils # (auto) 5.5 10 ^3/uL (1.6-8.6); Neutrophils % (auto) 67.1 % (37.0-80.0); Nucleated Red Blood Cells % 0.2 %; Red Blood Cells 3.96 10^6/uL (4.5-5.90); Red Cell Distribution Width 16.9 % (11.8-14.3); White Blood Cell 8.2 10^3/uL (4.4-10.8)
[2022-12-18] MEDS ORDERED: AMIODARONE 450mg/250ml AE 250 ML IV ONE (07:05)
[2022-12-18 07:07] LABS: Albumin 2.5 g/dL (3.4-5.0); Calcium 7.5 mg/dL (8.5-10.1)
[2022-12-18 07:11] LABS: BUN/Creatinine Ratio 6.9; Bilirubin, Total 0.9 mg/dL (0.2-1.0); Total Protein 6.4 g/dL (6.4-8.2)
[2022-12-18 07:19] LABS: Potassium 4.1 mmol/L (3.5-5.1)
[2022-12-18] MEDS: LEVOTHYROXINE SODIUM 100 MCG TAB PO SCH (07:45)
[2022-12-18] MEDS: CARVEDILOL 3.125 MG TAB PO SCH ×2 (09:57→21:32)
[2022-12-18] MEDS: hydrALAZINE HCL 10 MG TAB PO SCH ×2 (09:58→21:29)
[2022-12-18] MEDS: FUROSEMIDE 40 MG TAB PO SCH ×2 (10:00→21:30)
[2022-12-18] MEDS: PANTOPRAZOLE 40 MG TAB PO SCH (10:20)
[2022-12-18] MEDS: ISOSORBIDE DINITRATE 10 MG TAB PO SCH ×2 (10:20→21:29)
[2022-12-18] MEDS: ALLOPURINOL 100 MG TAB PO SCH (10:20)
[2022-12-18] MEDS: ENOXAPARIN SOD 40 MG/0.4 ML SYRINGE SC SCH (10:21)
[2022-12-18] MEDS: SACUBITRIL-VALSARTAN 24mg/26mg TAB PO SCH ×2 (10:22→21:30)
[2022-12-18] MEDS: ACETAMINOPHEN 325 MG TAB PO PRN (12:22)
[2022-12-18 17:39] VITALS: BP 108/64
[2022-12-18] MEDS ORDERED: AMIODARONE 450mg/250ml AE 250 ML IV SCH (19:10)
[2022-12-18 20:45] VITALS: BP 123/70
[2022-12-18] MEDS: AMIODARONE HCL 200 MG TAB PO SCH (21:30)
[2022-12-18 22:00] VITALS: BP 123/70
[2022-12-19 05:02] VITALS: BP 97/56
[2022-12-19] MEDS: LEVOTHYROXINE SODIUM 100 MCG TAB PO SCH (06:31)
[2022-12-19 09:00] VITALS: BP 109/63
[2022-12-19] MEDS: MAGNESIUM SULFATE 1GM/100ML 100 ML IV SCH ×2 (09:52→11:19)
[2022-12-19] MEDS: ENOXAPARIN SOD 40 MG/0.4 ML SYRINGE SC SCH (09:52)
[2022-12-19] MEDS: CARVEDILOL 3.125 MG TAB PO SCH ×2 (09:53→21:50)
[2022-12-19] MEDS: FUROSEMIDE 40 MG TAB PO SCH ×2 (09:53→21:50)
[2022-12-19] MEDS: PANTOPRAZOLE 40 MG TAB PO SCH (09:53)
[2022-12-19] MEDS: ISOSORBIDE DINITRATE 10 MG TAB PO SCH ×2 (09:53→21:49)
[2022-12-19] MEDS: ALLOPURINOL 100 MG TAB PO SCH (09:53)
[2022-12-19] MEDS: SACUBITRIL-VALSARTAN 24mg/26mg TAB PO SCH ×2 (09:54→21:49)
[2022-12-19] MEDS: hydrALAZINE HCL 10 MG TAB PO SCH ×2 (09:54→21:50)
[2022-12-19] MEDS: AMIODARONE HCL 200 MG TAB PO SCH ×2 (09:54→21:49)
[2022-12-19 13:00] VITALS: BP 107/61
[2022-12-19 13:38] LABS: BUN/Creatinine Ratio 7.4; Calcium 8.2 mg/dL (8.5-10.1); Magnesium 2.9 mg/dL (1.6-2.6); Potassium 3.4 mmol/L (3.5-5.1)
[2022-12-19] MEDS ORDERED: POTASSIUM CHL 20MEQ/100ML 100 ML IV ONE (15:00)
[2022-12-19 17:00] VITALS: BP 97/59
[2022-12-19 22:00] VITALS: BP 109/69
[2022-12-20 05:00] VITALS: BP 98/71
[2022-12-20] MEDS: LEVOTHYROXINE SODIUM 100 MCG TAB PO SCH (05:59)
[2022-12-20 06:56] LABS: Hematocrit 38.5 % (41.0-53.0); Hemoglobin 12.6 g/dL (13.5-17.5); Mean Corpuscular Hemoglobin 30.8 pg (28.0-32.0); Mean Corpuscular Hgb Conc. 32.8 g/dL (32.0-36.0); Mean Corpuscular Volume 93.9 fL (80.0-100.0); Red Cell Distribution Width 16.7 % (11.8-14.3); White Blood Cell 9.7 10^3/uL (4.4-10.8)
[2022-12-20 06:59] LABS: Basophils % (manual) 0 (0.0-2.0); Blast Cells 0; Metamyelocytes % 0; Myelocytes % 0; Promyelocytes % 0; Reactive Lymphocytes 0
[2022-12-20 07:14] LABS: BUN/Creatinine Ratio 8.3; Magnesium 2.6 mg/dL (1.6-2.6); Potassium 3.9 mmol/L (3.5-5.1)
[2022-12-20 08:05] VITALS: BP 100/58
[2022-12-20 08:54] VITALS: BP 100/58
[2022-12-20] MEDS: ISOSORBIDE DINITRATE 10 MG TAB PO SCH ×2 (10:00→22:05)
[2022-12-20] MEDS: hydrALAZINE HCL 10 MG TAB PO SCH ×2 (10:00→22:04)
[2022-12-20] MEDS: FUROSEMIDE 40 MG TAB PO SCH ×2 (10:00→22:05)
[2022-12-20] MEDS: AMIODARONE HCL 200 MG TAB PO SCH ×2 (10:00→22:05)
[2022-12-20] MEDS: CARVEDILOL 3.125 MG TAB PO SCH ×2 (10:00→22:05)
[2022-12-20] MEDS: PANTOPRAZOLE 40 MG TAB PO SCH (10:52)
[2022-12-20] MEDS: SACUBITRIL-VALSARTAN 24mg/26mg TAB PO SCH ×2 (10:53→22:05)
[2022-12-20] MEDS: ENOXAPARIN SOD 40 MG/0.4 ML SYRINGE SC SCH (10:53)
[2022-12-20] MEDS: ALLOPURINOL 100 MG TAB PO SCH (10:54)
[2022-12-20 12:58] LABS: Band Neutrophils % (manual) 6; Eosinophils % (manual) 10 (0-7); Lymphocytes % (manual) 16 (10.0-50.0); Monocytes % (manual) 11 (0-12)
[2022-12-20 13:00] VITALS: BP 93/56
[2022-12-20 16:56] VITALS: BP 93/56
[2022-12-20 17:07] VITALS: BP 93/56
[2022-12-21 05:00] VITALS: BP 94/51
[2022-12-21] MEDS: LEVOTHYROXINE SODIUM 100 MCG TAB PO SCH (06:30)
[2022-12-21] MEDS: hydrALAZINE HCL 10 MG TAB PO SCH ×2 (08:45→22:00)
[2022-12-21] MEDS: CARVEDILOL 3.125 MG TAB PO SCH ×2 (08:45→22:00)
[2022-12-21] MEDS: ISOSORBIDE DINITRATE 10 MG TAB PO SCH ×2 (08:46→22:00)
[2022-12-21] MEDS: ENOXAPARIN SOD 40 MG/0.4 ML SYRINGE SC SCH (08:49)
[2022-12-21] MEDS: AMIODARONE HCL 200 MG TAB PO SCH ×2 (08:49→22:17)
[2022-12-21] MEDS: SACUBITRIL-VALSARTAN 24mg/26mg TAB PO SCH ×2 (08:49→22:17)
[2022-12-21] MEDS: FUROSEMIDE 40 MG TAB PO SCH ×2 (08:49→22:00)
[2022-12-21] MEDS: PANTOPRAZOLE 40 MG TAB PO SCH (08:49)
[2022-12-21] MEDS: ALLOPURINOL 100 MG TAB PO SCH (08:49)
[2022-12-21 09:23] VITALS: BP 90/59
[2022-12-21] MEDS ORDERED: POTASSIUM CHL 20 Meq TABLET PO ONE (11:30)
[2022-12-21 13:00] VITALS: BP 91/58
[2022-12-21 17:04] VITALS: BP 117/77
[2022-12-21 22:00] VITALS: BP 126/41
[2022-12-22 04:50] VITALS: BP 100/63
[2022-12-22] MEDS: LEVOTHYROXINE SODIUM 100 MCG TAB PO SCH (06:22)
[2022-12-22] MEDS: ALLOPURINOL 100 MG TAB PO SCH (08:45)
[2022-12-22] MEDS: AMIODARONE HCL 200 MG TAB PO SCH ×2 (08:45→22:57)
[2022-12-22] MEDS: PANTOPRAZOLE 40 MG TAB PO SCH (08:45)
[2022-12-22] MEDS: ENOXAPARIN SOD 40 MG/0.4 ML SYRINGE SC SCH (08:45)
[2022-12-22] MEDS: SACUBITRIL-VALSARTAN 24mg/26mg TAB PO SCH ×2 (08:45→22:56)
[2022-12-22] MEDS: FUROSEMIDE 40 MG TAB PO SCH ×2 (08:45→22:00)
[2022-12-22] MEDS: CARVEDILOL 3.125 MG TAB PO SCH ×2 (08:46→22:00)
[2022-12-22] MEDS: hydrALAZINE HCL 10 MG TAB PO SCH ×2 (08:46→22:00)
[2022-12-22] MEDS: ISOSORBIDE DINITRATE 10 MG TAB PO SCH ×2 (08:47→22:00)
[2022-12-22 09:00] VITALS: BP 104/61
[2022-12-22 13:00] VITALS: BP 104/61
[2022-12-22 17:00] VITALS: BP 103/72
[2022-12-22 22:00] VITALS: BP 112/72
[2022-12-23] VITALS (10 sets, daily range): BP systolic 89–107; BP diastolic 54–70
[2022-12-23 06:25] LABS: INR 1.17 (0.9-1.15); Partial Thromboplastin Time 37.6 sec (24.6-33.4)
[2022-12-23 06:29] LABS: Albumin 3.1 g/dL (3.4-5.0); BUN/Creatinine Ratio 9.6; Calcium 8.9 mg/dL (8.5-10.1); Potassium 3.8 mmol/L (3.5-5.1)
[2022-12-23 06:30] LABS: Basophils # (auto) 0.1 10 ^3/uL (0-0.2); Basophils % (auto) 1.2 % (0.0-2.0); Eosinophils # (auto) 0.6 10 ^3/uL (0-0.8); Eosinophils % (auto) 10.7 % (0.0-7.0); Hematocrit 41.8 % (41.0-53.0); Hemoglobin 14.1 g/dL (13.5-17.5); Lymphocytes # (auto) 1.8 10 ^3/uL (0.4-5.4); Lymphocytes % (auto) 31.8 % (10.0-50.0); Mean Corpuscular Hgb Conc. 33.7 g/dL (32.0-36.0); Monocytes # (auto) 0.9 10 ^3/uL (0-1.3); Monocytes % (auto) 16.8 % (0.0-12.0); Neutrophils # (auto) 2.2 10 ^3/uL (1.6-8.6); Neutrophils % (auto) 39.5 % (37.0-80.0); Red Blood Cells 4.55 10^6/uL (4.5-5.90); Red Cell Distribution Width 15.7 % (11.8-14.3); White Blood Cell 5.6 10^3/uL (4.4-10.8)
[2022-12-23 06:32] LABS: Urine Bacteria NONE SEEN /hpf (None Seen); Urine Blood 2+ /uL (Negative); Urine Specific Gravity 1.013 (1.001-1.035); Urine WBC 4 /hpf (0 - 3)
[2022-12-23 06:32] LABS: Bilirubin, Total 0.6 mg/dL (0.2-1.0); Total Protein 7.8 g/dL (6.4-8.2)
[2022-12-23] MEDS: LEVOTHYROXINE SODIUM 100 MCG TAB PO SCH (06:33)
[2022-12-23] MEDS: SACUBITRIL-VALSARTAN 24mg/26mg TAB PO SCH ×2 (08:58→22:45)
[2022-12-23] MEDS: PANTOPRAZOLE 40 MG TAB PO SCH (08:58)
[2022-12-23] MEDS: FUROSEMIDE 40 MG TAB PO SCH ×2 (08:59→22:51)
[2022-12-23] MEDS: AMIODARONE HCL 200 MG TAB PO SCH ×2 (08:59→22:45)
[2022-12-23] MEDS: ALLOPURINOL 100 MG TAB PO SCH (08:59)
[2022-12-23] MEDS: ISOSORBIDE DINITRATE 10 MG TAB PO SCH ×2 (10:00→22:00)
[2022-12-23] MEDS: hydrALAZINE HCL 10 MG TAB PO SCH ×2 (10:00→22:00)
[2022-12-23] MEDS: CARVEDILOL 3.125 MG TAB PO SCH ×2 (10:00→22:00)
[2022-12-23] MEDS: ENOXAPARIN SOD 40 MG/0.4 ML SYRINGE SC SCH (10:00)
[2022-12-23] MEDS ORDERED: VANCOMYCIN 1GM/250ML 250 ML IV ONE (13:25)
[2022-12-23] MEDS ORDERED: fentaNYL CITRATE 100 MCG/2 ML VL ONE (13:26)
[2022-12-23] MEDS ORDERED: VANCOMYCIN HCL 1000 MG VL ONE (13:26)
[2022-12-23] MEDS ORDERED: MIDAZOLAM HCL 2MG/2ML 2ml VIAL (1mg/ml) ONE (13:26)
[2022-12-23] MEDS ORDERED: IOHEXOL 350 MG/ML 100ML IJ ONE (13:59)
[2022-12-23] MEDS ORDERED: LIDOCAINE 2%HCL (LOCAL ANESTH.) INJ 20ML MDV ONE (14:01)
[2022-12-23] MEDS ORDERED: FUROSEMIDE 20 MG/2 ML VIAL ONE (14:33)
[2022-12-23] MEDS: ceFAZolin 1GM/50ML 50 ML IV SCH (17:07)
[2022-12-24] MEDS: ceFAZolin 1GM/50ML 50 ML IV SCH (00:55)
[2022-12-24] MEDS ORDERED: VANCOMYCIN 1GM/250ML 250 ML IV SCH (02:00)
[2022-12-24 06:06] VITALS: BP 90/40
[2022-12-24] MEDS: LEVOTHYROXINE SODIUM 100 MCG TAB PO SCH (07:03)
[2022-12-24 08:00] VITALS: BP 83/37
[2022-12-24 09:00] VITALS: BP 83/37
[2022-12-24] MEDS: ENOXAPARIN SOD 40 MG/0.4 ML SYRINGE SC SCH (10:00)
[2022-12-24] MEDS: SACUBITRIL-VALSARTAN 24mg/26mg TAB PO SCH ×2 (10:30→21:31)
[2022-12-24] MEDS: CARVEDILOL 3.125 MG TAB PO SCH ×2 (10:30→21:31)
[2022-12-24] MEDS: FUROSEMIDE 40 MG TAB PO SCH ×2 (10:30→21:30)
[2022-12-24] MEDS ORDERED: SODIUM CHLORIDE 0.9% 500 ML IV ONE (10:30)
[2022-12-24] MEDS: AMIODARONE HCL 200 MG TAB PO SCH ×2 (10:38→21:28)
[2022-12-24] MEDS: ALLOPURINOL 100 MG TAB PO SCH (10:38)
[2022-12-24] MEDS: PANTOPRAZOLE 40 MG TAB PO SCH (10:38)
[2022-12-24] MEDS ORDERED: SODIUM CHLORIDE 0.9% 1,000 ML IV ONE (16:15)
[2022-12-24 17:02] VITALS: BP 81/36
[2022-12-24 20:10] VITALS: BP 94/64
[2022-12-24 22:00] VITALS: BP 98/64
[2022-12-25 05:00] VITALS: BP 87/45
[2022-12-25] MEDS: LEVOTHYROXINE SODIUM 100 MCG TAB PO SCH (06:49)
[2022-12-25 09:00] VITALS: BP 91/49
[2022-12-25] MEDS: SACUBITRIL-VALSARTAN 24mg/26mg TAB PO SCH ×2 (10:00→22:56)
[2022-12-25] MEDS: AMIODARONE HCL 200 MG TAB PO SCH ×2 (10:00→22:58)
[2022-12-25] MEDS: FUROSEMIDE 40 MG TAB PO SCH ×2 (10:00→22:00)
[2022-12-25] MEDS: CARVEDILOL 3.125 MG TAB PO SCH ×2 (10:00→22:00)
[2022-12-25] MEDS: ENOXAPARIN SOD 40 MG/0.4 ML SYRINGE SC SCH (11:52)
[2022-12-25] MEDS: PANTOPRAZOLE 40 MG TAB PO SCH (11:56)
[2022-12-25] MEDS: ALLOPURINOL 100 MG TAB PO SCH (11:57)
[2022-12-25 13:00] VITALS: BP 87/47
[2022-12-25 17:00] VITALS: BP 82/34
[2022-12-25 20:00] VITALS: BP 90/54
[2022-12-25 22:00] VITALS: BP 90/54
[2022-12-26] VITALS (7 sets, daily range): BP systolic 82–98; BP diastolic 34–53
[2022-12-26] MEDS: LEVOTHYROXINE SODIUM 100 MCG TAB PO SCH (05:52)
[2022-12-26] MEDS: ACETAMINOPHEN 325 MG TAB PO PRN ×2 (08:26→14:39)
[2022-12-26] MEDS: ALLOPURINOL 100 MG TAB PO SCH (08:26)
[2022-12-26] MEDS: PANTOPRAZOLE 40 MG TAB PO SCH (08:26)
[2022-12-26] MEDS: ENOXAPARIN SOD 40 MG/0.4 ML SYRINGE SC SCH (08:26)
[2022-12-26] MEDS: AMIODARONE HCL 200 MG TAB PO SCH (08:26)
[2022-12-26] MEDS: CARVEDILOL 3.125 MG TAB PO SCH (08:29)
[2022-12-26] MEDS: SACUBITRIL-VALSARTAN 24mg/26mg TAB PO SCH ×2 (08:30→21:34)
[2022-12-26] MEDS: FUROSEMIDE 40 MG TAB PO SCH (08:30)
[2022-12-26] MEDS ORDERED: SODIUM CHLORIDE 0.9% 500 ML IV ONE (10:30)
[2022-12-26] MEDS ORDERED: FUROSEMIDE 40 MG TAB PO SCH (18:00)
[2022-12-27 05:00] VITALS: BP 89/53
[2022-12-27] MEDS: LEVOTHYROXINE SODIUM 100 MCG TAB PO SCH (06:01)
[2022-12-27 08:00] VITALS: BP 89/50
[2022-12-27 09:00] VITALS: BP 98/53
[2022-12-27] MEDS: SACUBITRIL-VALSARTAN 24mg/26mg TAB PO SCH (10:00)
[2022-12-27] MEDS: ALLOPURINOL 100 MG TAB PO SCH (10:10)
[2022-12-27] MEDS: PANTOPRAZOLE 40 MG TAB PO SCH (10:10)
[2022-12-27] MEDS: ENOXAPARIN SOD 40 MG/0.4 ML SYRINGE SC SCH (10:12)
[2022-12-27 13:00] VITALS: BP 89/50
[2022-12-27 15:47] VITALS: BP 89/50
== END 2022-12-27 16:30 | DRG 177 ==
LOC: EDBD 19:42 → ER 19:42 → TELE 22:00 → TELE-E-ADS 12-18 17:10 → TELE-CENTR 12-18 19:32
PROVIDERS: ADMIT Nurse Practitioner Family; ATTEND Internal Medicine
PROC: 4B02XTZ Measurement of Cardiac Defibrillator, External Approach (ICD-10-PCS; 2022-12-18)
PROC: 02HK3KZ Insertion of Defibrillator Lead into Right Ventricle, Percutaneous Approach (ICD-10-PCS; principal; 2022-12-23)
PROC: 02PA3MZ Removal of Cardiac Lead from Heart, Percutaneous Approach (ICD-10-PCS; 2022-12-23)
DX: T82.119A Breakdown (mechanical) of unspecified cardiac electronic device, initial encounter (principal); I47.20 Ventricular tachycardia, unspecified; E46 Unspecified protein-calorie malnutrition; I11.0 Hypertensive heart disease with heart failure; I50.20 Unspecified systolic (congestive) heart failure; I95.2 Hypotension due to drugs; E83.51 Hypocalcemia; D64.9 Anemia, unspecified; E66.01 Morbid (severe) obesity due to excess calories; E87.6 Hypokalemia; I49.8 Other specified cardiac arrhythmias; K21.9 Gastro-esophageal reflux disease without esophagitis; Z20.822 Contact with and (suspected) exposure to COVID-19; Y71.2 Prosthetic and other implants, materials and accessory cardiovascular devices associated with adverse incidents; R73.9 Hyperglycemia, unspecified; R55 Syncope and collapse; Z68.20 Body mass index [BMI] 20.0-20.9, adult; E03.9 Hypothyroidism, unspecified; T46.2X5A Adverse effect of other antidysrhythmic drugs, initial encounter; Z88.1 Allergy status to other antibiotic agents; Y92.89 Other specified places as the place of occurrence of the external cause; Z82.3 Family history of stroke; Z82.49 Family history of ischemic heart disease and other diseases of the circulatory system; Z83.3 Family history of diabetes mellitus; Z95.810 Presence of automatic (implantable) cardiac defibrillator
CPT/HCPCS: 33224; 33244; 36415; 70450; 71045; 71250; 72125; 73130; 73700; 74176; 80048; 80053; 81001; 83605; 83735; 83880; 84484; 85007; 85025; 85027; 85610; 85652; 85730; 86850; 86900; 86901; 87040; 87426; 93005; 93886; 95819; 96361; 96365; 96366; 96372; 96375; 97110; 97164; 97530; 99152; 99153; G0378; J0690; J2250; J3480; J7060

== ENCOUNTER → 2023-02-26 | Outpatient (CLI) | payer MEDICAID ==
[~2023-02-26] MED LIST changes: -CARV3.1240 PO; -HYDR0.5C EX; -HYDR10TA26 PO; -ISOS10TA2 PO; -METH4PAK PO; -METR500T PO; -NAP500T PO; -OMEP20TA PO; -VANC250PO PO
== END | disposition home or self-care (01) ==
LOC: Rad HDHVI 08:03
PROVIDERS: ATTEND Internal Medicine Cardiovascular Disease
DX: I11.0 Hypertensive heart disease with heart failure (principal)
CPT/HCPCS: 93306

== ENCOUNTER → 2024-04-11 | Outpatient (CLI) | payer MEDICAID ==
[~2024-04-11] MED LIST changes: +POTA-36 PO; -POTA10TA51 PO; -SUCR1TAB22 PO; +SUCR1TAB31 PO
== END | disposition home or self-care (01) ==
LOC: Rad HDHVI 10:58
PROVIDERS: ATTEND Internal Medicine Cardiovascular Disease
DX: I35.8 Other nonrheumatic aortic valve disorders (principal); I10 Essential (primary) hypertension; E78.5 Hyperlipidemia, unspecified
CPT/HCPCS: 93306